=== PATIENT | male | born 1985 | race Caucasian/White ===

== ENCOUNTER → 2019-05-27 | Outpatient (REF) | payer SELFPAY ==
[2019-05-27 17:07] LABS: ALT/SGPT 40 U/L (12-78); BILIRUBIN,TOTAL 0.5 MG/DL (0.2-1.0); BLOOD UREA NITROGEN 18 MG/DL (7-18); CALCIUM LEVEL 9.3 MG/DL (8.5-10.1); CARBON DIOXIDE LEVEL 28 MEQ/L (21-32); CHLORIDE LEVEL 106 MEQ/L (98-107); CREATININE FOR GFR 0.76 MG/DL (0.70-1.30); GLOMERULAR FILTRATION RATE > 60.0 (>60); GLUCOSE, FASTING 156 MG/DL (70-100); POTASSIUM SERUM 3.9 MEQ/L (3.5-5.1); SODIUM LEVEL 140 MEQ/L (136-145); TOTAL PROTEIN 7.7 GM/DL (6.4-8.2)
[2019-05-27 17:32] LABS: HEMATOCRIT 45.8 % (42.0-52.0); HEMOGLOBIN 15.4 g/dl (13.5-17.5); MEAN CORPUSCULAR HEMOGLOBIN 28.8 pg (27.0-33.0); MEAN CORPUSCULAR HGB CONC 33.6 g/dl (32.0-36.5); MEAN CORPUSCULAR VOLUME 85.6 fl (80.0-96.0); PLATELET COUNT, AUTOMATED 269 10^3/uL (150-450); RED BLOOD COUNT 5.35 10^6/uL (4.30-6.10); WHITE BLOOD COUNT 5.7 10^3/uL (4.0-10.0)
[2019-05-27 17:46] LABS: HEMOGLOBIN A1c 11.9 %
== END ==
LOC: M LAB REF 16:25
PROVIDERS: ATTEND Surgery
DX: T14.8XXA Other injury of unspecified body region, initial encounter (principal)

== ENCOUNTER 2019-09-06 12:17 | Inpatient (IN) | payer BC, SELFPAY ==
[~2019-09-06] VITALS: Ht 193 cm; Wt 110.5 kg
[2019-09-06] MEDS ORDERED: BASA100I SC (12:27)
[2019-09-06] MEDS ORDERED: CLIN300C5 PO (12:27)
[2019-09-06] MEDS ORDERED: LEVO500T3 PO (12:27)
[2019-09-06] MEDS ORDERED: HUMA100I5 SC (12:27)
[2019-09-06] MEDS ORDERED: INSU100I9 (12:27)
[2019-09-06] MEDS ORDERED: NS 1,000 ML IV ONE (13:45)
[2019-09-06] MEDS ORDERED: ACETAMINOPHEN TAB 650MG DOSE (2X325MG) PO ONE (13:45)
[2019-09-06 13:54] LABS: BASO # 0.1 10^3/uL (0.0-0.2); BASO % 0.4 % (0.0-1.0); EOS # 0.1 10^3/uL (0.0-0.5); EOS % 0.4 % (0.0-3.0); HEMATOCRIT 37.9 % (42.0-52.0); HEMOGLOBIN 12.8 g/dl (13.5-17.5); LYMPH # 1.1 10^3/uL (1.5-5.0); LYMPH % 8.2 % (24.0-44.0); MEAN CORPUSCULAR HEMOGLOBIN 28.3 pg (27.0-33.0); MEAN CORPUSCULAR HGB CONC 33.8 g/dl (32.0-36.5); MEAN CORPUSCULAR VOLUME 83.7 fl (80.0-96.0); MONO # 1.2 10^3/uL (0.0-0.8); MONO % 9.4 % (0.0-5.0); NEUTROPHILS # 10.6 10^3/uL (1.5-8.5); NEUTROPHILS % 80.8 % (36.0-66.0); PLATELET COUNT, AUTOMATED 330 10^3/uL (150-450); RED BLOOD COUNT 4.53 10^6/uL (4.30-6.10)
[2019-09-06] MEDS ORDERED: ACET-683 PO (14:19)
--- NOTE | 2019-09-06 14:21 | REP ---
Left foot series: Four views. History: Infected diabetic foot. Rule out osteomyelitis. Findings: There is a dressing about the forefoot. There is diffuse soft tissue swelling. Overall mineralization pattern is normal. No bony erosive changes seen. No soft tissue gas or opaque foreign body is appreciated. Impression: Diffuse soft tissue swelling. No acute bony abnormality. Plantar heel spurring. No soft tissue gas seen. Electronically Signed by Mikie Jerez MD 09/06/2019 02:13 P
[2019-09-06 14:31] LABS: ERYTHROCYTE SEDIMENTATION RATE 94 mm/hr (0-15)
[2019-09-06 14:32] LABS: ALBUMIN 2.5 GM/DL (3.2-5.2); ALT/SGPT 54 U/L (12-78); BILIRUBIN,TOTAL 0.8 MG/DL (0.2-1.0); BLOOD UREA NITROGEN 16 MG/DL (7-18); CALCIUM LEVEL 8.5 MG/DL (8.5-10.1); CARBON DIOXIDE LEVEL 22 MEQ/L (21-32); CHLORIDE LEVEL 95 MEQ/L (98-107); CREATININE FOR GFR 0.97 MG/DL (0.70-1.30); GLOMERULAR FILTRATION RATE > 60.0 (>60); GLUCOSE, FASTING 451 MG/DL (70-100); POTASSIUM SERUM 4.1 MEQ/L (3.5-5.1); SODIUM LEVEL 129 MEQ/L (136-145); TOTAL PROTEIN 6.8 GM/DL (6.4-8.2)
[2019-09-06] MEDS ORDERED: HumuLIN R (REGULAR) INSULIN (NovoLIN R) **100U/ML** PER UNIT IV STA ×2 (15:18→15:58)
[2019-09-06] MEDS ORDERED: VANCOMYCIN HCL 1,000 MG, VIAL MATE ADAPTER 1 EACH in D5W 250 ML IV ONE (16:30)
[2019-09-06] MEDS ORDERED: GLUCAGON FOR INJ 1 MG VIAL (J1610) SC PRN (17:00)
[2019-09-06] MEDS ORDERED: DEXTROSE 50% 50 ML SYRINGE IV PRN (17:00)
[2019-09-06] MEDS ORDERED: GLUCOSE 4 GM CHEW TABLET PO PRN (17:00)
[2019-09-06] MEDS: HumaLOG INSULIN (NovoLOG) PER UNIT SC SCH ×2 (17:30→21:00)
--- NOTE | 2019-09-06 17:33 | HPEPDOC ---
[facility] Medical History & Physical Date of Admission Sep 06, 2019 Date of Service: Sep 06, 2019 History and Physical CHIEF COMPLAINT: Foot pain HISTORY OF PRESENT ILLNESS: Patient is 34M with PMH type 2 IDDM and R. diabetic foot wound presented to the ER with complaints of worsening pain in his new L. foot wound. He has been following with Dr. Timmons for the past year reportedly for his R. foot. He states that because of compensating for his R. foot, he had developed an open wound on his L. foot and has been getting worse. States that he has been having worsening swelling with his L. foot wound for the past several weeks. He went to [facility] last week and was started on Clindamycin with Levaquin since Thursday but had not improve at all. He reports pain with subjective fever and chills otherwise denies any other complaints. PAST MEDICAL HISTORY: Refer to [facility] PAST SURGICAL HISTORY: Appendectomy SOCIAL HISTORY: Smokes about 1ppd, does not want nicotine patch Social alcohol rare marijuana use FAMILY HISTORY: Father epilepsy Both parents has DM ALLERGIES: Please see below. REVIEW OF SYSTEMS: 10 point review of system negative except as stated in [facility] HOME MEDICATIONS: Please see below. PHYSICAL EXAMINATION: General: Alert, mild distress Eyes: Normal sclera, EOMI HENT: Atraumatic Cardiovascular: Normal rate, normal rhythm. Pulmonary: Clear to auscultation b/l, no wheezing GI: Soft, nontender, nondistended Skin: b/l LE with multiple darkened skin changes. L. foot with 2x2 erythematous round open wound in dorsum of the foot under 2/3rd toes. Nondraining, no bone exposure. Neuro: CN grossly intact. No focal deficits. Strengths equal b/l. Psych: oriented x 3 LABORATORY DATA: See below. IMAGING: L. foot XR- Diffuse soft tissue swelling. No acute bony abnormality. Plantar heel spurring. No soft tissue gas seen. MICROBIOLOGY: Please see below. ASSESSMENT AND PLAN: 1. L. diabetic foot wound - Mild leukocytosis with elevated ESR. - No evidence of bone exposure. - XR with evidence of soft tissue swelling but no bony abnormality suggestive of osteomyelitis at this time. - start on broad spectrum abx coverage while pending Podiatry evaluatio n/recommendation and blood culture results. - Failed outpatient PO abx with Clindamycin and levaquin. - Pain control. 2. DM - resume equivalent dose levemir for home regimen with ISS coverage. - consistent carbohydrate diet. DVT ppx: HSQ Code status: Full code Vital Signs Vital Signs Date Time Temp Pulse Resp B/P (MAP) Pulse Ox O2 Delivery O2 Flow Rate FiO2 09/06/19 15:14 98.6 92 18 139/80 (99) 95 Room Air Laboratory Data Labs 24H Laboratory Tests 2 09/06/19 13:33: Immature Granulocyte % (Auto) 0.8, Neutrophils (%) (Auto) 80.8H, Lymphocytes (%) (Auto) 8.2L, Monocytes (%) (Auto) 9.4H, Eosinophils (%) (Auto) 0.4, Basophils (%) (Auto) 0.4, Neutrophils # (Auto) 10.6H, Lymphocytes # (Auto) 1.1L, Monocytes # (Auto) 1.2H, Eosinophils # (Auto) 0.1, Basophils # (Auto) 0.1, Nucleated Red Blood Cells % (auto) 0.0, Erythrocyte Sedimentation Rate 94H, Anion Gap 12, Glomerular Filtration Rate > 60.0, Calcium Level 8.5, Total Bilirubin 0.8, Aspartate Amino Transf (AST/SGOT) 16, Alanine Aminotransferase (ALT/SGPT) 54, Alkaline Phosphatase 206H, C-Reactive Protein, Quantitative 22.10H, Total Protein 6.8, Albumin 2.5L, Albumin/Globulin Ratio 0.58L 09/06/19 13:44: Lactic Acid Level 1.7 09/06/19 15:55: Bedside Glucose (Misc Panel) 329H CBC/BMP Laboratory Tests 09/06/19 13:33 Microbiology Microbiology 09/06/19 Blood Culture, Received Pending 09/06/19 Blood Culture, Received Pending Home Medications Scheduled Clindamycin HCl (Clindamycin HCl) 300 Mg Capsule, 600 MG PO TID STARTED 09/01/2019 FOR A 10 DAY COURSE Insulin Glargine,Hum.rec.anlog (Basaglar Kwikpen U-100) 100 Unit/1 Ml Insuln.pen, 40 UNITS SC QHS Insulin Lispro (Humalog Kwikpen U-100) 100 Unit/1 Ml Insuln.pen, 1 DOSE SC AC PER SLIDING SCALE. Levofloxacin (Levofloxacin) 500 Mg Tablet, 500 MG PO DAILY COURSE STARTED 09/01/2019 FOR 10 DAYS Scheduled PRN Acetaminophen (Acetaminophen) 500 Mg Tablet, 1,000 MG PO Q6H PRN for PAIN / FEV ER Allergies Coded Allergies: Penicillins (Verified Allergy, Intermediate, rash hives, 09/06/19) A-FIB/CHADSVASC A-FIB History Current/History of A-Fib/PAF?: No NIYAH RIVERA MD Sep 06, 2019 17:33
[2019-09-06] MEDS: CEFEPIME HCL 2 GM in D5W MINI-BAG PLUS 50 ML IV SCH (18:18)
[2019-09-06] MEDS ORDERED: GENTAMICIN SULF INJ 80MG/2ML VIAL (J1580) As Ordered ONE (18:24)
[2019-09-06] MEDS ORDERED: BUPIVACAINE HCL 0.5% 10 ML VIAL As Ordered ONE (18:32)
[2019-09-06] MEDS ORDERED: dexameTHASONE 4 MG/ML 1ML VIAL (J1100) As Ordered ONE ×2 (18:32→18:33)
[2019-09-06] MEDS ORDERED: LIDOCAINE 2% MDV 20 ML VIAL As Ordered ONE (18:32)
[2019-09-06] MEDS ORDERED: LIDOCAINE 2% INJ 100 MG/5 ML SDV (FOR ANES.) As Ordered ONE (18:33)
[2019-09-06] MEDS ORDERED: METOCLOPRAMIDE INJ 10MG/2ML VIAL (J2765) As Ordered ONE (18:33)
[2019-09-06] MEDS ORDERED: propofoL 200 MG/20 ML VIAL As Ordered ONE ×2 (18:33→19:33)
[2019-09-06] MEDS ORDERED: ONDANSETRON 4MG/2ML VIAL (J2405) As Ordered ONE (18:33)
[2019-09-06] MEDS ORDERED: MIDAZOLAM INJ 2 MG/2 ML VIAL (J2250) As Ordered ONE (18:37)
[2019-09-06] MEDS ORDERED: fentaNYL 100 MCG/2 ML INJECTION (J3010) As Ordered ONE (18:37)
--- NOTE | 2019-09-06 18:37 | PHACANCOPD ---
PHARMACY VANCOMYCIN DOSING Pt Demographics Demographics Patient Age:34 , Weight:112.600 , Gender: male Adjusted Body Weight Date: 09/06/19, Adjusted Body Weight: Kg Events Past 24 Hours Events Past 24 Hours: YES: Fever, Elevation in WBC; NO: Dialysis, Diuretic Therapy, Change in CrCl, Pending Diagnostics, Pending Procedures, Other Vancomycin Vancomycin indication: DIABETIC FOOT INFECTION (SSTI) Vancomycin Target Ranges: 10-20 mcg/ml Vancomycin Load Y/N: Yes Load Dose Date Time Vancomycin Load Dose: 2000MG Date: 09/06/18 Time: 1900 Vancomycin Dose Date: 09/06/19. Current Vancomycin Dose: [ 1.5 grams q8h starting 09/07/18 @0300 ] Intermittent Dosing?: No Labs Labs Vital Signs Label Value Date Time Patient Temperature 100.1 degrees F 09/06/19 1217 Temperature Source Temporal 09/06/19 1217 Patient Temperature 98.6 degrees F 09/06/19 1514 Temperature Source Oral 09/06/19 1514 Respiratory Rate 24 bpm 09/06/19 1217 Respiratory Rate 18 bpm 09/06/19 1514 Blood Pressure Assessment 137/86 (103) 09/06/19 1217 Location Right Arm Source Automatic Cuff (NIBP) Position Sitting Blood Pressure Assessment 139/80 (99) 09/06/19 1514 Location Right Arm Source Automatic Cuff (NIBP) Position Supine Bedside Pulse Oximetry 98 % 09/06/19 1217 Bedside Pulse Oximetry 95 % 09/06/19 1514 Item Value Date Time Bedside Glucose (Misc Panel) 329 MG/DL H 09/06/19 1555 Glomerular Filtration Rate > 60.0 09/06/19 1333 Fasting Glucose 451 MG/DL *H 09/06/19 1333 C-Reactive Protein, Quantitative 22.10 MG/DL H 09/06/19 1333 Erythrocyte Sedimentation Rate 94 mm/hr H 09/06/19 1333 White Blood Count 13.0 10^3/uL H 09/06/19 1333 Micro Microbiology 09/06/19 Blood Culture, Received Pending 09/06/19 Blood Culture, Received Pending Creatinine Clearance Date:09/06/19. Creatinine Clearance: [ 136 mL/min ]. Assessment and Plan Maintaining Current Dose?: Yes Reason for dose change: No Dose Change Pharmacist Note Pharmacist Note Date: 09/06/19. Pharmacist note: Patient is a 34 year old man who presented to the emergency department at [facility] after failing outpatient antibiotic therapy consisting of levofloxacin and clindamycin for a diabetic foot ulcer. Upon further work-up he was found to an elevated white blood cell count, erythrocyte sedimentation rate and c-reactive protein. He is a insulin-dependent type 2 diabetic currently managed on multiple hypoglycemic medications. He has no previous history of vancomycin at [facility] and has normal renal function. Mr. Aguirre was placed on empiric antibiotic therapy consisting of Cefepime and vancomycin. A loading dose of 2 grams of vancomycin was ordered in addition to a 1.5 gram maintenance dose scheduled for every 8 hours. We will obtain a vancomycin trough level prior to the fourth dose, with a goal trough between 10- 20mcg/dL. We will continue to monitor and make adjustments as needed. RUTHIE DUNCAN PHARMACY Sep 06, 2019 18:37
--- NOTE | 2019-09-06 18:52 | CR ---
DATE OF CONSULTATION: 09/06/2019 CHIEF COMPLAINT: A 34-year-old type 2 diabetic male, seen for evaluation of an infection in his left foot. Patient is presently seen at the wound center for his right and left foot, states that his left foot started to initially swell and become more painful on Thursday. Patient went to [facility], was placed on oral antibiotics. However, his infection continued to progress, and now his foot is extremely tender, and presented to [facility] for painful and swollen left foot. SURGICAL HISTORY: Appendectomy. MEDICATION: Humalog. ALLERGIES: To PENICILLIN. EXAM: Evaluation of his left foot reveals an ulceration present submetatarsal 2 of the left foot, measuring approximately 2 cm in diameter. There is proximal to this an area of tense tissue with white discoloration of the skin consistent with abscess on the plantar surface of the foot. There is dorsal swelling, and the swelling does extend to the ankle. On the left foot, the dorsalis pedis and posterior tibial pulses are palpable. X-rays were reviewed of the patient's left foot revealing no signs of osteomyelitis. There is an inferior calcaneal spur noted. LABORATORY STUDIES: Reveal a white count of 13, ESR of 94, C-reactive protein 22.1, fasting glucose 451. ASSESSMENT: Central space abscess left foot. PLAN: Informed consent was obtained and signed by the patient. We discussed surgical incision and drainage of abscess, left foot. His questions were answered.
[2019-09-06] MEDS: VANCOMYCIN HCL 1,000 MG, VIAL MATE ADAPTER 1 EACH in D5W 250 ML IV SCH ×2 (19:17→22:45)
[2019-09-06] MEDS ORDERED: HumaLOG INSULIN (NovoLOG) PER UNIT As Ordered ONE (20:08)
[2019-09-06] MEDS ORDERED: ONDANSETRON 4MG/2ML VIAL (J2405) IV PRN (20:15)
[2019-09-06] MEDS ORDERED: fentaNYL 100 MCG/2 ML INJECTION (J3010) IV PRN (20:15)
[2019-09-06] MEDS ORDERED: ACETAMINOPHEN *IV* 1,000 MG in IV 0 EA IV PRN (20:15)
[2019-09-06] MEDS ORDERED: LR 1,000 ML IV SCH (20:15)
[2019-09-06] MEDS ORDERED: HumaLOG INSULIN (NovoLOG) PER UNIT SC ONE (21:00)
[2019-09-06 21:37] VITALS: BP 138/84
[2019-09-06 22:13] VITALS: BP 152/86
[2019-09-06] MEDS: LEVEMIR (INSULIN DETEMIR) 1 UNITS/0.01ML SC SCH (22:46)
[2019-09-06] MEDS: HEPARIN SOD (PORCINE) 5000 UNITS/ML VIAL (J1644 PER 1000UNITS) SC SCH (22:46)
[2019-09-06 23:24] VITALS: BP 146/74
[2019-09-06] MEDS: ACETAMINOPHEN 500 MG TAB PO PRN (23:29)
[2019-09-07 00:59] VITALS: BP 113/65
[2019-09-07 02:05] VITALS: BP 134/87
[2019-09-07] MEDS: VANCOMYCIN HCL 1,000 MG, VIAL MATE ADAPTER 1 EACH in D5W 250 ML IV SCH ×2 (03:42→11:33)
[2019-09-07] MEDS: HEPARIN SOD (PORCINE) 5000 UNITS/ML VIAL (J1644 PER 1000UNITS) SC SCH ×3 (05:44→21:29)
[2019-09-07] MEDS: VANCOMYCIN HCL 500 MG in D5W MINI-BAG PLUS 100 ML IV SCH ×2 (05:44→13:01)
[2019-09-07] MEDS: PERCOCET 5MG/325MG TAB PO PRN ×3 (06:05→21:47)
[2019-09-07 06:13] VITALS: BP 146/86
[2019-09-07 07:44] LABS: HEMATOCRIT 35.1 % (42.0-52.0); HEMOGLOBIN 11.9 g/dl (13.5-17.5); MEAN CORPUSCULAR HEMOGLOBIN 28.5 pg (27.0-33.0); MEAN CORPUSCULAR HGB CONC 33.9 g/dl (32.0-36.5); PLATELET COUNT, AUTOMATED 321 10^3/uL (150-450); RED BLOOD COUNT 4.18 10^6/uL (4.30-6.10); WHITE BLOOD COUNT 10.5 10^3/uL (4.0-10.0)
[2019-09-07] MEDS: CEFEPIME HCL 2 GM in D5W MINI-BAG PLUS 50 ML IV SCH ×2 (07:46→17:53)
[2019-09-07 08:03] LABS: BLOOD UREA NITROGEN 9 MG/DL (7-18); CALCIUM LEVEL 8.4 MG/DL (8.5-10.1); CARBON DIOXIDE LEVEL 27 MEQ/L (21-32); CHLORIDE LEVEL 100 MEQ/L (98-107); CREATININE FOR GFR 0.82 MG/DL (0.70-1.30); GLOMERULAR FILTRATION RATE > 60.0 (>60); GLUCOSE, FASTING 272 MG/DL (70-100); POTASSIUM SERUM 3.6 MEQ/L (3.5-5.1); SODIUM LEVEL 133 MEQ/L (136-145)
[2019-09-07] MEDS: HumaLOG INSULIN (NovoLOG) PER UNIT SC SCH ×4 (08:25→21:30)
--- NOTE | 2019-09-07 09:49 | RO ---
DATE OF PROCEDURE: 09/06/2019 PREOPERATIVE DIAGNOSIS: Plantar space abscess left foot. POSTOPERATIVE DIAGNOSIS: Plantar superficial, plantar deep and dorsal space infection left foot. PROCEDURE PERFORMED: Incision and drainage of central superficial, central deep and dorsal space left foot. SURGEON: Gus Contreras DPM HYDROLOGY PROFESSOR: None. ANESTHESIA: Local monitored anesthesia care (MAC). HEMOSTASIS: None. ESTIMATED BLOOD LOSS: 20 mL. IRRIGATION: 3 liters dilute gentamicin solution, low pressure pulse lavage system. DRAINS UTILIZED: 1/4-inch iodoform gauze DESCRIPTION OF OPERATION: On 09/06/2019 this 34-year-old male was taken from his hospital room to the operating room and placed on the operating room table in supine position. Following the induction of IV sedation, local and regional anesthesia, attention was directed to the patient's left foot where there was noted to be an ulceration on the plantar surface of the foot, inferior to the second metatarsal, with an abscess noted on the plantar surface with dorsal swelling on the right foot. Utilizing a hemostat the ulcer was explored. It did extend down into the plantar arch. Utilizing a scalpel, an incision was made through the superficial skin to the plantar fascia. This was opened up and a considerable amount of purulent matter was expressed. The plantar fascia was then linearly excised and additional purulent material was seen and expressed out of the plantar wound, approximately 10 mL of purulent bloody matter was expressed from the wound itself. This was sent for culture, aerobically and anaerobically. The wound was explored and there was a tunnel noted extending to the dorsal surface of the foot. A 2 cm incision was placed along this abscess and approximately 1 mL of purulent matter was expressed from this wound. Utilizing a low pressure pulse lavage system 3 liters of solution was pulsed through the wound. No other purulent material could be found. The wound was packed both deep to the plantar fascia and superficial to the plantar fascia as well as the dorsal space with 1/4-inch iodoform gauze and a dry sterile dressing was applied consisting of 4 x 4's, ABDs and Kerlix. The patient having apparently tolerated the surgical procedure well was taken from the operating room to the recovery room for further monitoring by the anesthesia department. The patient will continue his antibiotics. This will be tailored according to his culture and sensitivities. The patient may bear weight on his heel. His questions are answered.
[2019-09-07 15:45] VITALS: BP 135/84
[2019-09-07] MEDS: ACETAMINOPHEN 500 MG TAB PO PRN (19:08)
--- NOTE | 2019-09-07 20:19 | IPNPDOC ---
Date Seen The patient was seen on 09/07/19. Progress Note SUBJECTIVE: Patient s/p debridement of foot abscess. Reports feeling slightly better today. Tmax 102.7 last night, fever had resolved. WBC 13->10.5. OBJECTIVE PHYSICAL EXAMINATION: General: Alert, mild distress Eyes: Normal sclera, EOMI HENT: Atraumatic Cardiovascular: Normal rate, normal rhythm. Pulmonary: Clear to auscultation b/l, no wheezing GI: Soft, nontender, nondistended Skin: b/l LE with multiple darkened skin changes. L. foot with overlying bandage c/d/i. Neuro: CN grossly intact. No focal deficits. Strengths equal b/l. Psych: oriented x 3 LABORATORY DATA: See below. IMAGING: L. foot XR- Diffuse soft tissue swelling. No acute bony abnormality. Plantar heel spurring. No soft tissue gas seen. MICROBIOLOGY: Please see below. ASSESSMENT AND PLAN: 1. L. diabetic foot wound - Mild leukocytosis with elevated ESR. - No evidence of bone exposure. - XR with evidence of soft tissue swelling but no bony abnormality suggestive of osteomyelitis at this time. - c/w IV broad spectrum abx coverage while pending culture results. - Failed outpatient PO abx with Clindamycin and levaquin. - Pain control. 2. DM - resume equivalent dose levemir for home regimen with ISS coverage. - consistent carbohydrate diet. DVT ppx: HSQ Code status: Full code VS, I&O, 24H, Fishbone Vital Signs/I&O Vital Signs Date Time Temp Pulse Resp B/P (MAP) Pulse Ox O2 Delivery O2 Flow Rate FiO2 09/07/19 13:46 18 Room Air 09/07/19 06:13 99.1 96 146/86 (106) 97 I&O- Last 24 Hours up to 6 AM 09/07/19 06:00 Intake Total 4390 ml Output Total 20 ml Balance 4370 ml Laboratory Data 24H LABS Laboratory Tests 2 09/06/19 21:43: Bedside Glucose (Misc Panel) 231H 09/07/19 07:27: Nucleated Red Blood Cells % (auto) 0.0, Anion Gap 6L, Glomerular Filtration Rate > 60.0, Calcium Level 8.4L 09/07/19 12:24: Bedside Glucose (Misc Panel) 276H 09/07/19 17:41: Bedside Glucose (Misc Panel) 335H 09/07/19 19:49: CBC/BMP Laboratory Tests 09/07/19 07:27 Microbiology Microbiology 09/06/19 Anaerobic Culture, Received Pending 09/06/19 Gram Stain - Final, Resulted 09/06/19 Abscess Culture, Resulted Pending 09/06/19 Blood Culture - Preliminary, Resulted No growth after 24 hours . All specim... 09/06/19 Blood Culture - Preliminary, Resulted No growth after 24 hours . All specim... NIYAH RIVERA MD Sep 07, 2019 20:19
[2019-09-07] MEDS: LEVEMIR (INSULIN DETEMIR) 1 UNITS/0.01ML SC SCH (21:30)
[2019-09-07 22:00] VITALS: BP 136/81
--- NOTE | 2019-09-07 22:19 | IPN ---
DATE: 09/07/2019 CHIEF COMPLAINT: Patient was seen at bedside for evaluation of his left foot. The bandage and packing were removed. There was a minimal amount of purulent material on the dorsal incision. There was no purulent material on the plantar incision. Utilizing dermal wound cleanser, the wound was flushed of any purulent material. No other purulent material could be expressed. A dry sterile dressing was applied to the patient's left foot. Orders were written to cleanse wound with wound cleanse and apply Drawtex to the wound twice a day. Patient's questions were answered. Dr. Barr will be covering my service. I will be out of town until Thursday.
[2019-09-08] MEDS: VANCOMYCIN HCL 1,000 MG, VIAL MATE ADAPTER 1 EACH in D5W 250 ML IV SCH ×4 (00:22→22:18)
[2019-09-08] MEDS: VANCOMYCIN HCL 500 MG in D5W MINI-BAG PLUS 100 ML IV SCH ×3 (02:16→19:00)
[2019-09-08 06:00] VITALS: BP 135/81
[2019-09-08] MEDS: CEFEPIME HCL 2 GM in D5W MINI-BAG PLUS 50 ML IV SCH ×2 (06:18→21:10)
[2019-09-08] MEDS: HEPARIN SOD (PORCINE) 5000 UNITS/ML VIAL (J1644 PER 1000UNITS) SC SCH ×3 (06:19→21:09)
[2019-09-08] MEDS: PERCOCET 5MG/325MG TAB PO PRN ×3 (06:43→22:38)
[2019-09-08 07:14] LABS: HEMATOCRIT 36.1 % (42.0-52.0); HEMOGLOBIN 11.7 g/dl (13.5-17.5); MEAN CORPUSCULAR HEMOGLOBIN 27.5 pg (27.0-33.0); MEAN CORPUSCULAR HGB CONC 32.4 g/dl (32.0-36.5); MEAN CORPUSCULAR VOLUME 84.9 fl (80.0-96.0); PLATELET COUNT, AUTOMATED 338 10^3/uL (150-450); RED BLOOD COUNT 4.25 10^6/uL (4.30-6.10); WHITE BLOOD COUNT 10.3 10^3/uL (4.0-10.0)
[2019-09-08 07:36] LABS: BLOOD UREA NITROGEN 7 MG/DL (7-18); CALCIUM LEVEL 8.6 MG/DL (8.5-10.1); CARBON DIOXIDE LEVEL 29 MEQ/L (21-32); CHLORIDE LEVEL 98 MEQ/L (98-107); CREATININE FOR GFR 0.78 MG/DL (0.70-1.30); GLOMERULAR FILTRATION RATE > 60.0 (>60); GLUCOSE, FASTING 279 MG/DL (70-100); POTASSIUM SERUM 3.4 MEQ/L (3.5-5.1); SODIUM LEVEL 133 MEQ/L (136-145)
[2019-09-08] MEDS ORDERED: LEVEMIR (INSULIN DETEMIR) 1 UNITS/0.01ML SC ONE (08:00)
[2019-09-08] MEDS: HumaLOG INSULIN (NovoLOG) PER UNIT SC SCH ×4 (08:16→21:10)
[2019-09-08 10:00] VITALS: BP 141/85
[2019-09-08 14:00] VITALS: BP 120/79
--- NOTE | 2019-09-08 15:49 | CR.PDOC ---
General Date of Consultation: Sep 08, 2019 Referring Provider: NIYAH RIVERA MD Attending Physician: Lisa Barr MD Consultation REASON FOR CONSULTATION/CHIEF COMPLAINT: Diabetic foot ulcer HISTORY OF PRESENT ILLNESS: Patient is a 34-year-old male, past medical history significant for type 2 insulin-dependent diabetes and chronic right foot ulceration, who presented to the emergency department on 09/06/2019 with a chief complaint of worsening left foot pain. Patient was last seen at [facility] a week prior to presentation with a similar complaint. His ulcer was examined and patient was started on outpatient clindamycin and Levaquin. Over the weekend, patient reports little improvement in overall symptoms. 3 days prior to presentation, patient reported increasing number of his fever and chills with a MAXIMUM TEMPERATURE of 104. Upon presentation emergency department, patient's temperature was noted to be 100.1F with associated tachycardia of 118. Respiratory rate of 24. Initial laboratory workup was positive for a white count of 13.0 and a fasting glucose of 451. No lactic acid elevation with a value of 1.7. X-ray imaging performed on patient's right foot demonstrated diffuse soft tissue swelling without any visible gas. No acute bony abnormalities. Patient was treated with IV insulin and broad-spectrum antibiotics, vancomycin and cefepime. Podiatry was consulted and ultimately performed an incision and drainage of a central space abscess. Infectious disease was later consulted to review antibiotic therapy choice. ALLERGIES: Please see below. HOME MEDICATIONS: Please see below. PAST MEDICAL HISTORY: Type 2 diabetes, insulin-dependent, diagnosed at age 19 History of chronic right foot diabetic ulcer PAST SURGICAL HISTORY: Appendectomy FAMILY HISTORY: Father: Newly diagnosed diabetes mellitus, history of epilepsy Mother: Insulin-dependent diabetes mellitus SOCIAL HISTORY: Nicotine use: Patient reports smoking approximately 1 pack per day but declines nicotine patch on admission Alcohol use: Patient reports using occasional alcohol Illicit drug use: Patient does admit to rare marijuana use REVIEW OF SYSTEMS: CONSTITUTIONAL: Patient reports resolution of his subjective fever and chills. He denies any noticeable changes in weight over the last couple of months. Her increasing fatigue. HEENT: Denies headache, change is in vision, earache or changes in hearing, nasal congestion, rhinorrhea, sinus pain or pressure, difficulty swallowing. CARDIOVASCULAR: Denies chest pain, pressure, inappropriate tachycardia or palpitations RESPIRATORY: Denies any new onset shortness of breath, cough, wheeze. No exertional dyspnea, history of orthopnea GENITOURINARY: No urinary frequency, urgency, hesitancy. Denies any hematuria MUSCULOSKELETAL: Reports improving pain in his left foot status post I&D on 09/07/2019 GASTROINTESTINAL: Denies any nausea or vomiting, abdominal pain, constipation or diarrhea. No history of bloody stools. No black tarry stools. SKIN: Reports history of chronic R-sided LE ulceration, previously followed with wound clinic. NEUROLOGICAL: Reports a one-year history of worsening diabetic neuropathy particularly in his distal lower extremities bilaterally ENDOCRINE: Denies any recent polyphagia polydipsia or polyuria. PHYSICAL EXAMINATION: VITAL SIGNS: Please see below. GENERAL APPEARANCE: Patient was interviewed and examined in his hospital bed. He was found to be resting comfortably eating lunch. He is awake, alert, and oriented. He is able to answer questions appropriately and actively participate in his care. He is bearded, and does appear slightly unkempt. HEENT: Normocephalic, atraumatic, sclera nonicteric, moist mucous membranes, poor oral hygiene. RESPIRATORY: Clear to auscultation bilaterally, no wheezes rales or rhonchi CARDIOVASCULAR: Regular rate and rhythm, normal S1 and S2, no murmurs gallops or rubs ABDOMEN: Soft, nontender, nondistended. no organomegaly or masses. Bowel sounds present in all 4 quadrants. EXTREMITIES: Resolved ulcer noted on the plantar aspect of patient's right foot measuring approximately 2.5 cm diameter. Patient's left foot was wrapped in gauze and Kerlix. Upon inspection, patient does demonstrate healing incisions in both the plantar and dorsal aspect of his foot. Mild surrounding erythema without any purulent drainage or discharge. No proximal cellulitis noted. Slight maceration noted between first and second digits. Motor function intact bilaterally. Dorsalis pedis and posterior tibial pulses 2+ bilaterally. Decrease d sensation in the distal aspects of all digits bilaterally. NEUROLOGICAL: Alert and oriented to person place and time, decreased sensation on distal aspects of toes as noted above. PSYCHIATRIC: Mood and affect are appropriate given patient's current clinical condition. LABORATORY DATA: Please see below. ASSESSMENT/PLAN: #Complicated skin and soft tissue infection with known central space abscess - Blood cultures obtained upon admission did not demonstrate any growth after 48 hours. Anaerobic culture of patient's left foot remains pending. Gram stain is positive form gram-positive cocci in pairs, gram-positive rods and gram-negative rods. Initial leukocytosis of 13.0 and since reduced at 10.3. CRP down from 22.1 to 14.4. - X-ray imaging does not indicate osteomyelitis. Failed outpatient treatment with clindamycin and Levaquin. - Patient started on empiric antibiotic therapy upon admission with vancomycin and cefepime, day #3. Culture pending subsequent adjustment of antibiotics per sensitivities. -MRI tomorrow morning to further rule out osteomyelitis -Plan to de-escalate antimicrobial therapy pending culture results. Vital Signs/I&O Vital Signs Date Time Temp Pulse Resp B/P (MAP) Pulse Ox O2 Delivery O2 Flow Rate FiO2 09/08/19 13:30 18 09/08/19 06:00 98.9 103 135/81 (99) 95 Room Air I&O- Last 24 Hours up to 6 AM 09/08/19 06:00 Intake Total 1570 ml Output Total 0 ml Balance 1570 ml Laboratory Data Labs 24H Laboratory Tests 2 09/07/19 17:41: Bedside Glucose (Misc Panel) 335H 09/07/19 20:55: Bedside Glucose (Misc Panel) 352H 09/07/19 23:20: Vancomycin Level Trough 3.6L 09/08/19 06:27: Nucleated Red Blood Cells % (auto) 0.0, Anion Gap 6L, Glomerular Filtration Rate > 60.0, Calcium Level 8.6, C-Reactive Protein, Quantitative 14.40H 09/08/19 11:11: Bedside Glucose (Misc Panel) 336H 09/08/19 14:49: CBC/BMP Laboratory Tests 09/08/19 06:27 Microbiology Microbiology 09/06/19 Anaerobic Culture, Received Pending 09/06/19 Gram Stain - Final, Resulted 09/06/19 Abscess Culture, Resulted Pending 09/06/19 Blood Culture - Preliminary, Resulted No Growth after 48 hours. All Specime... 09/06/19 Blood Culture - Preliminary, Resulted No Growth after 48 hours. All Specime... Allergies Coded Allergies: Penicillins (Verified Allergy, Intermediate, rash hives, 09/06/19) Home Medications Scheduled Clindamycin HCl (Clindamycin HCl) 300 Mg Capsule, 600 MG PO TID, (Reported) STARTED 09/01/2019 FOR A 10 DAY COURSE Insulin Glargine,Hum.rec.anlog (Basaglar Kwikpen U-100) 100 Unit/1 Ml Insuln.pen, 40 UNITS SC QHS, (Reported) Insulin Lispro (Humalog Kwikpen U-100) 100 Unit/1 Ml Insuln.pen, 1 DOSE SC AC, (Reported) PER SLIDING SCALE. Levofloxacin (Levofloxacin) 500 Mg Tablet, 500 MG PO DAILY, (Reported) COURSE STARTED 09/01/2019 FOR 10 DAYS Scheduled PRN Acetaminophen (Acetaminophen) 500 Mg Tablet, 1,000 MG PO Q6H PRN for PAIN / FEVER, (Reported) GME ATTESTATION GME ATTESTATION My faculty preceptor for this patient encounter was physically present during the encounter and was fully available. All aspects of the patient interview, examination, medical decision making process, and medical care plan development were reviewed and approved by the faculty preceptor. The faculty preceptor is aware and concurs with the plan as stated in the body of this note and will attest to such by his/her cosignature. KIANNA CUTLER DO Sep 08, 2019 15:49
--- NOTE | 2019-09-08 15:50 | PHACANCOPD ---
PHARMACY VANCOMYCIN DOSING Pt Demographics Demographics Patient Age:34 , Weight:112.600 , Gender: male Adjusted Body Weight Date: 09/06/19, Adjusted Body Weight: [86.08] Kg Events Past 24 Hours Events Past 24 Hours: NO: Dialysis, Diuretic Therapy, Change in CrCl, Fever, Elevation in WBC, Pending Diagnostics, Pending Procedures, Other Vancomycin Vancomycin indication: DIABETIC FOOT INFECTION (SSTI) Vancomycin Target Ranges: 10-20 mcg/ml Vancomycin Load Y/N: Yes Load Dose Date Time Vancomycin Load Dose: 2000MG Date: 09/06/18 Time: 1900 Vancomycin Dose Date: 09/08/19. Current Vancomycin Dose: [1.5G Q6H ] Date: 09/06/19. Current Vancomycin Dose: [ 1.5 grams q8h starting 09/07/18 @0300 ] Intermittent Dosing?: No Labs Labs Item Value Date Time White Blood Count 13.0 10^3/uL H 09/06/19 1333 White Blood Count 10.5 10^3/uL H 09/07/19 0727 White Blood Count 10.3 10^3/uL H 09/08/19 0627 Creatinine 0.97 MG/DL 09/06/19 1333 Creatinine 0.82 MG/DL 09/07/19 0727 Creatinine 0.78 MG/DL 09/08/19 0627 C-Reactive Protein, Quantitative 22.10 MG/DL H 09/06/19 1333 C-Reactive Protein, Quantitative 14.40 MG/DL H 09/08/19 0627 Vancomycin Level Trough 3.6 UG/ML L 09/07/19 2320 Vancomycin Level Trough 9.0 UG/ML L 09/08/19 1449 Micro Microbiology 09/06/19 Anaerobic Culture, Received Pending 09/06/19 Gram Stain - Final, Resulted 09/06/19 Abscess Culture, Resulted Pending 09/06/19 Blood Culture - Preliminary, Resulted No Growth after 48 hours. All Specime... 09/06/19 Blood Culture - Preliminary, Resulted No Growth after 48 hours. All Specime... Creatinine Clearance Date:09/08/19. Creatinine Clearance: [169ML/MIN]. Date:09/06/19. Creatinine Clearance: [ 136 mL/min ]. Pending Labs VANCOMYCIN TROUGH 09/09/19 @ 09:00 Assessment and Plan Maintaining Current Dose?: Yes Reason for dose change: No Dose Change Pharmacist Note Pharmacist Note Date: 09/08/19. Pharmacist note: Pt trough came back @ 14:49 at 9mcg/ml. Dosing will change to 1.5g IV every 6 hours starting at 16:00. A trough is scheduled for 09:00 09/09/19. We will continue to monitor and adjust the dose as needed. Date: 09/06/19. Pharmacist note: Patient is a 34 year old man who presented to the emergency department at [facility] after failing outpatient antibiotic therapy consisting of levofloxacin and clindamycin for a diabetic foot ulcer. Upon further work-up he was found to an elevated white blood cell count, erythrocyte sedimentation rate and c-reactive protein. He is a insulin-dependent type 2 diabetic currently managed on multiple hypoglycemic medications. He has no previous history of vancomycin at [facility] and has normal renal function. Mr. Aguirre was placed on empiric antibiotic therapy consisting of Cefepime and vancomycin. A loading dose of 2 grams of vancomycin was ordered in addition to a 1.5 gram maintenance dose scheduled for every 8 hours. We will obtain a vancomycin trough level prior to the fourth dose, with a goal trough between 10-20mcg/dL. We will continue to monitor and make adjustments as needed. ESTELITA SCRUGGS PHARMACY Sep 08, 2019 15:50
[2019-09-08 20:03] VITALS: BP 132/82
[2019-09-08] MEDS: LEVEMIR (INSULIN DETEMIR) 1 UNITS/0.01ML SC SCH (21:09)
[2019-09-09] MEDS: VANCOMYCIN HCL 500 MG in D5W MINI-BAG PLUS 100 ML IV SCH ×5 (00:07→23:18)
[2019-09-09] MEDS: VANCOMYCIN HCL 1,000 MG, VIAL MATE ADAPTER 1 EACH in D5W 250 ML IV SCH ×4 (04:21→22:16)
[2019-09-09 05:45] VITALS: BP 134/84
[2019-09-09] MEDS: HEPARIN SOD (PORCINE) 5000 UNITS/ML VIAL (J1644 PER 1000UNITS) SC SCH ×3 (05:51→21:00)
[2019-09-09] MEDS: CEFEPIME HCL 2 GM in D5W MINI-BAG PLUS 50 ML IV SCH (06:56)
[2019-09-09] MEDS: PERCOCET 5MG/325MG TAB PO PRN ×3 (06:57→20:57)
[2019-09-09 07:00] LABS: HEMATOCRIT 38.3 % (42.0-52.0); HEMOGLOBIN 12.2 g/dl (13.5-17.5); MEAN CORPUSCULAR HEMOGLOBIN 27.4 pg (27.0-33.0); MEAN CORPUSCULAR HGB CONC 31.9 g/dl (32.0-36.5); MEAN CORPUSCULAR VOLUME 85.9 fl (80.0-96.0); PLATELET COUNT, AUTOMATED 364 10^3/uL (150-450); RED BLOOD COUNT 4.46 10^6/uL (4.30-6.10); WHITE BLOOD COUNT 10.8 10^3/uL (4.0-10.0)
[2019-09-09 07:18] LABS: BLOOD UREA NITROGEN 8 MG/DL (7-18); CALCIUM LEVEL 8.2 MG/DL (8.5-10.1); CARBON DIOXIDE LEVEL 31 MEQ/L (21-32); CHLORIDE LEVEL 94 MEQ/L (98-107); CREATININE FOR GFR 0.92 MG/DL (0.70-1.30); GLOMERULAR FILTRATION RATE > 60.0 (>60); GLUCOSE, FASTING 331 MG/DL (70-100); SODIUM LEVEL 132 MEQ/L (136-145)
[2019-09-09] MEDS: HumaLOG INSULIN (NovoLOG) PER UNIT SC SCH ×4 (08:03→21:00)
[2019-09-09 14:00] VITALS: BP 135/82
[2019-09-09] MEDS: MEROPENEM INJ 1 GM in IV 1 EA IV SCH ×2 (14:12→20:37)
--- NOTE | 2019-09-09 16:27 | IPN ---
DATE: 09/09/2019 Sukumar is doing well. He states he has some pain in his left foot. No fever or chills. His last temperature was 24 hours ago at 100.8. He has no nausea, vomiting or diarrhea. LABS: White count is 10.8, hemoglobin 12.2, hematocrit 38.3, platelets 364. Sodium 132, potassium 4, chloride 94, bicarb 31, BUN 8, creatinine 0.92, glucose 331, calcium 8.2. CRP 12.5, down from 22.1. Blood cultures two sets on 09/06/2019 was negative. Wound culture had staph coag negative and three different anaerobes that need to be identified. Staph coag negative was resistant to oxacillin. MRI of left foot is still pending. On physical exam, temperature is 98.8, pulse 101, respirations 18, blood pressure 134/84, oxygen saturation 97% on room air. Heart: Normal S1, S2. No murmurs, rubs or gallops. Lungs are clear. No wheezes, rales or rhonchi. Abdomen: Soft, nontender. No visceromegaly. Extremities: Right foot no edema. +2 dorsalis pedal pulse. Left foot has swelling of the whole foot as there is an incision between the 1st and 2nd toe measuring about 2 cm with significant purulent discharge. The dorsal aspect of the foot has another large incision measuring about 4 cm between the 2nd and 3rd toe. There is some purulent discharge there but that has improved from yesterday. The patient has decreased sensation to light touch but he has some tenderness to touch. IMPRESSION: 1. Complicated skin and soft tissue infection with polymicrobial keri anaerobic infection currently on vancomycin and cefepime. He does not have any anaerobic coverage on current medication. 2. Insulin-dependent diabetes poorly controlled with HbA1c of 11. The patient plans to improve his diabetes control and has an appointment to followup with Dr. Tolliver as he does not measure his glucose at home. 3. Tobacco abuse. The patient states he is quitting smoking. PLAN: MRI of the foot today. Depending on findings if patient needs more I and D I will call podiatry to evaluate. Dr. Contreras is out of town and I may need to call Dr. Cameron. Discontinue IV cefepime and switch to meropenem which has better anaerobic coverage. Since the patient is allergic to penicillin I cannot use Zosyn MTDD
--- NOTE | 2019-09-09 18:53 | IPNPDOC ---
Date Seen The patient was seen on 09/09/19. Progress Note SUBJECTIVE: Patient states he feels fine today. Afebrile overnight. WBC 10.8. abscess cx + staph Pending MRI today OBJECTIVE PHYSICAL EXAMINATION: General: Alert, mild distress Eyes: Normal sclera, EOMI HENT: Atraumatic Cardiovascular: Normal rate, normal rhythm. Pulmonary: Clear to auscultation b/l, no wheezing GI: Soft, nontender, nondistended Skin: b/l LE with multiple darkened skin changes. L. foot with overlying bandage c/d/i. Neuro: CN grossly intact. No focal deficits. Strengths equal b/l. Psych: oriented x 3 LABORATORY DATA: See below. IMAGING: L. foot XR- Diffuse soft tissue swelling. No acute bony abnormality. Plantar heel spurring. No soft tissue gas seen. MICROBIOLOGY: Please see below. ASSESSMENT AND PLAN: 1. L. diabetic foot abscess - s/p debridement. - XR with evidence of soft tissue swelling but no bony abnormality. Pending MRI to assess for osteo. - c/w IV broad spectrum abx meropenem and vancomycin. f/u blood cultures. - Failed outpatient PO abx with Clindamycin and levaquin. - Pain control. ID following. 2. DM - resume equivalent dose levemir for home regimen with ISS coverage. - consistent carbohydrate diet. DVT ppx: HSQ Code status: Full code VS, I&O, 24H, Fishbone Vital Signs/I&O Vital Signs Date Time Temp Pulse Resp B/P (MAP) Pulse Ox O2 Delivery O2 Flow Rate FiO2 09/09/19 14:00 98.7 82 18 135/82 (99) 95 Room Air I&O- Last 24 Hours up to 6 AM 09/09/19 06:00 Intake Total 3250 ml Output Total 0 ml Balance 3250 ml Laboratory Data 24H LABS Laboratory Tests 2 09/08/19 20:02: Bedside Glucose (Misc Panel) 391H 09/09/19 06:41: Nucleated Red Blood Cells % (auto) 0.0, Anion Gap 7L, Glomerular Filtration Rate > 60.0, Calcium Level 8.2L, C-Reactive Protein, Quantitative 12.50H 09/09/19 09:16: Vancomycin Level Trough 15.9 09/09/19 11:44: Bedside Glucose (Misc Panel) 292H 09/09/19 16:41: Bedside Glucose (Misc Panel) 338H CBC/BMP Laboratory Tests 09/09/19 06:41 Microbiology Microbiology 09/06/19 Anaerobic Culture, Received Pending 09/06/19 Gram Stain - Final, Complete 09/06/19 Abscess Culture - Final, Complete Staphylococcus Sp Coag Neg 09/06/19 Blood Culture - Preliminary, Resulted No Growth after 72 hours. All specime... 09/06/19 Blood Culture - Preliminary, Resulted No Growth after 72 hours. All specime... NIYAH RIVERA MD Sep 09, 2019 18:53
[2019-09-09] MEDS ORDERED: PROHANCE 279.3MG/ML 15ML VIAL (A9576) As Ordered ONE (19:23)
[2019-09-09] MEDS ORDERED: PROHANCE 279.3MG/ML 5ML VIAL (A9576) As Ordered ONE (19:23)
[2019-09-09] MEDS: LEVEMIR (INSULIN DETEMIR) 1 UNITS/0.01ML SC SCH (20:37)
--- NOTE | 2019-09-09 21:00 | REPVR ---
PROCEDURE INFORMATION: Exam: MR Left Lower Extremity Other Than Joint Without and With Contrast; Foot Exam date and time: 09/09/2019 8:06 PM Age: 34 years old Clinical indication: Pain and condition or disease; Other: Diabetic ulcer; Left; Patient HX: PT states having diabetic foot ulcer on the top and bottom of foot near the toes; Additional info: Diabetic foot ulcer, R/O osteomyelitis TECHNIQUE: Imaging protocol: MR of the Left lower extremity without and with intravenous contrast. Exam focused on the foot. Contrast material: PROHANCE; Contrast volume: 20 ml; Contrast route: HAND INJECTION; COMPARISON: CR Foot, complete 09/06/2019 1:56 PM FINDINGS: Soft tissues: There is extensive soft tissue swelling in the forefoot particularly surrounding the 1st and 2nd digits. There is an ulceration of the plantar surface of the forefoot best seen on series 501 images 17-23. There is a defect in the plantar skin surface at this site with gas extending into the underline soft tissue of the subcutaneous fat. There is edema and pockets of fluid surrounding the 1st and 2nd phalanges and the 2nd metatarsal head. There is moderate bone marrow edema within the 2nd metatarsal head and base of the 2nd proximal phalanx on STIR images. On this is only minimally present on T1 weighted images, however there is faint enhancement on the postcontrast images in the same location. There is also edema noted in the marrow of the distal phalanx and distal portion of the proximal phalanx of the 1st digit on STIR images with enhancement on postcontrast images. No edema in the 1st metatarsal. IMPRESSION: 1. Ulceration of the plantar aspect of the forefoot with extensive soft tissue edema and pockets of fluid surrounding the 1st and 2nd digits. 2. Moderate edema within the head of the 2nd metatarsal and base of the 2nd proximal phalanx as well as within the distal phalanx and head of the proximal phalanx with enhancement. Consistent with early osteomyelitis. Electronically signed by: Damián Sears On 09/09/2019 20:59:59 PM
[2019-09-09 22:16] VITALS: BP 128/88
[2019-09-10] MEDS: VANCOMYCIN HCL 500 MG in D5W MINI-BAG PLUS 100 ML IV SCH ×3 (04:29→18:35)
[2019-09-10] MEDS: HEPARIN SOD (PORCINE) 5000 UNITS/ML VIAL (J1644 PER 1000UNITS) SC SCH ×2 (05:13→13:23)
[2019-09-10] MEDS: PERCOCET 5MG/325MG TAB PO PRN ×3 (05:15→21:35)
[2019-09-10] MEDS: VANCOMYCIN HCL 1,000 MG, VIAL MATE ADAPTER 1 EACH in D5W 250 ML IV SCH ×3 (05:27→20:10)
[2019-09-10 06:02] VITALS: BP 128/82
[2019-09-10 06:37] LABS: HEMATOCRIT 37.1 % (42.0-52.0); HEMOGLOBIN 12.1 g/dl (13.5-17.5); MEAN CORPUSCULAR HEMOGLOBIN 27.7 pg (27.0-33.0); MEAN CORPUSCULAR HGB CONC 32.6 g/dl (32.0-36.5); MEAN CORPUSCULAR VOLUME 84.9 fl (80.0-96.0); PLATELET COUNT, AUTOMATED 412 10^3/uL (150-450); RED BLOOD COUNT 4.37 10^6/uL (4.30-6.10); WHITE BLOOD COUNT 12.4 10^3/uL (4.0-10.0)
[2019-09-10] MEDS: MEROPENEM INJ 1 GM in IV 1 EA IV SCH ×3 (06:51→21:32)
[2019-09-10 07:13] LABS: BLOOD UREA NITROGEN 9 MG/DL (7-18); CALCIUM LEVEL 8.7 MG/DL (8.5-10.1); CARBON DIOXIDE LEVEL 28 MEQ/L (21-32); CHLORIDE LEVEL 92 MEQ/L (98-107); CREATININE FOR GFR 0.78 MG/DL (0.70-1.30); GLOMERULAR FILTRATION RATE > 60.0 (>60); GLUCOSE, FASTING 294 MG/DL (70-100); POTASSIUM SERUM 4.4 MEQ/L (3.5-5.1); SODIUM LEVEL 130 MEQ/L (136-145)
[2019-09-10] MEDS: HumaLOG INSULIN (NovoLOG) PER UNIT SC SCH ×4 (08:54→21:27)
[2019-09-10 09:15] LABS: VANCOMYCIN RANDOM 31.3 UG/ML
[2019-09-10 14:00] VITALS: BP 126/81
--- NOTE | 2019-09-10 16:09 | IPNPDOC ---
Date Seen The patient was seen on 09/10/19. Progress Note SUBJECTIVE: Patient offered no complaints. Noted foot swelling to had improved. Afebrile overnight. WBC 12.4 OBJECTIVE PHYSICAL EXAMINATION: General: Alert, mild distress Eyes: Normal sclera, EOMI HENT: Atraumatic Cardiovascular: Normal rate, normal rhythm. Pulmonary: Clear to auscultation b/l, no wheezing GI: Soft, nontender, nondistended Skin: b/l LE with multiple darkened skin changes. L. foot with overlying bandage c/d/i. Neuro: CN grossly intact. No focal deficits. Strengths equal b/l. Psych: oriented x 3 LABORATORY DATA: See below. IMAGING: L. foot XR- Diffuse soft tissue swelling. No acute bony abnormality. Plantar heel spurring. No soft tissue gas seen. MICROBIOLOGY: Please see below. ASSESSMENT AND PLAN: 1. L. diabetic foot abscess - s/p drainage. - XR with evidence of soft tissue swelling but no bony abnormality, however MRI shows evidence of early osteomyelitis. - discussed with covering Podiatry for the weekend, will evaluate new findings. - c/w IV broad spectrum abx meropenem and vancomycin. blood cultures negative to date. - Failed outpatient PO abx with Clindamycin and levaquin. - Pain control. ID following. 2. DM - resume equivalent dose levemir for home regimen with ISS coverage. - consistent carbohydrate diet. DVT ppx: HSQ Code status: Full code VS, I&O, 24H, Fishbone Vital Signs/I&O Vital Signs Date Time Temp Pulse Resp B/P (MAP) Pulse Ox O2 Delivery O2 Flow Rate FiO2 09/10/19 14:00 99.1 87 20 126/81 (96) 95 Room Air I&O- Last 24 Hours up to 6 AM 09/10/19 06:00 Intake Total 3250 ml Output Total 0 ml Balance 3250 ml Laboratory Data 24H LABS Laboratory Tests 2 09/09/19 16:41: Bedside Glucose (Misc Panel) 338H 09/09/19 20:36: Bedside Glucose (Misc Panel) 422H 09/10/19 06:24: Nucleated Red Blood Cells % (auto) 0.0, Anion Gap 10, Glomerular Filtration Rate > 60.0, Calcium Level 8.7, C-Reactive Protein, Quantitative 10.00H, Random Vancomycin Level 31.3 09/10/19 11:43: Bedside Glucose (Misc Panel) 302H CBC/BMP Laboratory Tests 09/10/19 06:24 Microbiology Microbiology 09/06/19 Anaerobic Culture, Received Pending 09/06/19 Gram Stain - Final, Complete 09/06/19 Abscess Culture - Final, Complete Staphylococcus Sp Coag Neg 09/06/19 Blood Culture - Preliminary, Resulted No Growth after 72 hours. All specime... 09/06/19 Blood Culture - Preliminary, Resulted No Growth after 72 hours. All specime... NIYAH RIVERA MD Sep 10, 2019 16:09
--- NOTE | 2019-09-10 18:08 | CR ---
DATE OF CONSULTATION: 09/10/2019 REASON FOR CONSULTATION: Persisting left foot infection. Sukumar Aguirre is a pleasant 34-year-old male who was admitted to [facility] with left foot infection. He was evaluated initially by Dr. Contreras, who brought him to the operating room on September 06 for an incision and drainage. He was re-evaluated by infectious disease and had MRI, which showed persisting infection and purulent drainage. I was asked to evaluate and see if further incision and drainage was required. PAST MEDICAL HISTORY: Significant for diabetes. PAST SURGICAL HISTORY: 1. Appendectomy. 2. Foot incision and drainage. ALLERGIES: PENICILLIN. REVIEW OF SYSTEMS: Positive for fevers, maximal temperature 100.5, most recent 99.1. Labs are reviewed. White blood cell count 12.1, up from 10.8. CRP is 10. MRI from September 09 shows soft tissue swelling and plantar ulceration, which is consistent with the site of incision and drainage as well as soft tissue gas and edema with fluid pockets around the 1st and 2nd toes as well as some concern for osteomyelitis of the 2nd metatarsal toe. Lower extremity examination: Significant erythema and edema with a large amount of purulent drainage is noted from the dorsal and plantar incision sites. ASSESSMENT: A 34-year-old diabetic male with persisting abscess, left foot. PLAN: We will plan to bring him to the operating room tomorrow for repeat incision and drainage. He is to be nothing by mouth at midnight.
[2019-09-10] MEDS: LEVEMIR (INSULIN DETEMIR) 1 UNITS/0.01ML SC SCH (21:26)
[2019-09-10 22:00] VITALS: BP 129/82
[2019-09-11] VITALS (8 sets, daily range): BP systolic 125–136; BP diastolic 79–94
--- NOTE | 2019-09-11 02:44 | PHACANCOPD ---
PHARMACY VANCOMYCIN DOSING Pt Demographics Demographics Patient Age:34 , Weight:112.600 , Gender: male Adjusted Body Weight Date: 09/06/19, Adjusted Body Weight: [86.08] Kg Events Past 24 Hours Events Past 24 Hours: NO: Dialysis, Diuretic Therapy, Change in CrCl, Fever, Elevation in WBC, Pending Diagnostics, Pending Procedures, Other Vancomycin Vancomycin indication: DIABETIC FOOT INFECTION (SSTI) Vancomycin Target Ranges: 10-20 mcg/ml Vancomycin Load Y/N: Yes Load Dose Date Time Vancomycin Load Dose: 2000MG Date: 09/06/18 Time: 1900 Vancomycin Dose Date: 09/11/19. Current Vancomycin Dose: [1.5G Q8H ] Intermittent Dosing?: No Labs Labs Item Value Date Time White Blood Count 12.4 10^3/uL H 09/10/19 0624 Glomerular Filtration Rate > 60.0 09/10/19 0624 Blood Urea Nitrogen 9 MG/DL 09/10/19 0624 Creatinine 0.78 MG/DL 09/10/19 0624 Vancomycin Level Trough 12.6 UG/ML 09/11/19 0149 Vital Signs Label Value Date Time Patient Temperature 98.4 degrees F 09/10/19 2200 Temperature Source Temporal 09/10/19 2200 Micro Microbiology 09/06/19 Anaerobic Culture, Received Pending 09/06/19 Gram Stain - Final, Complete 09/06/19 Abscess Culture - Final, Complete Staphylococcus Sp Coag Neg 09/06/19 Blood Culture - Preliminary, Resulted No Growth after 72 hours. All specime... 09/06/19 Blood Culture - Preliminary, Resulted No Growth after 72 hours. All specime... Creatinine Clearance Date:09/08/19. Creatinine Clearance: [169ML/MIN]. Date:09/06/19. Creatinine Clearance: [ 136 mL/min ]. Assessment and Plan Maintaining Current Dose?: Yes Reason for dose change: No Dose Change Pharmacist Note Pharmacist Note Date: 09/11/19. Pharmacist note: Trough of 12.6 is within target range, will continue current dosing. Will monitor and make adjustments as needed. JACKLYN WADSWORTH PHARMACY Sep 11, 2019 02:44
[2019-09-11] MEDS: VANCOMYCIN HCL 500 MG in D5W MINI-BAG PLUS 100 ML IV SCH ×3 (03:09→18:19)
[2019-09-11] MEDS: VANCOMYCIN HCL 1,000 MG, VIAL MATE ADAPTER 1 EACH in D5W 250 ML IV SCH ×3 (04:23→20:16)
[2019-09-11] MEDS: MEROPENEM INJ 1 GM in IV 1 EA IV SCH ×3 (05:36→21:19)
[2019-09-11 07:06] LABS: HEMOGLOBIN 12.7 g/dl (13.5-17.5); MEAN CORPUSCULAR HEMOGLOBIN 27.6 pg (27.0-33.0); MEAN CORPUSCULAR HGB CONC 32.6 g/dl (32.0-36.5); MEAN CORPUSCULAR VOLUME 84.8 fl (80.0-96.0); PLATELET COUNT, AUTOMATED 450 10^3/uL (150-450); WHITE BLOOD COUNT 8.6 10^3/uL (4.0-10.0)
[2019-09-11] MEDS: HumaLOG INSULIN (NovoLOG) PER UNIT SC SCH ×4 (07:30→21:42)
[2019-09-11 07:33] LABS: BLOOD UREA NITROGEN 9 MG/DL (7-18); C REACTIVE PROTEIN QUANTITATIV 7.44 MG/DL (0.00-0.30); CALCIUM LEVEL 8.8 MG/DL (8.5-10.1); CARBON DIOXIDE LEVEL 28 MEQ/L (21-32); CHLORIDE LEVEL 96 MEQ/L (98-107); CREATININE FOR GFR 0.77 MG/DL (0.70-1.30); GLOMERULAR FILTRATION RATE > 60.0 (>60); GLUCOSE, FASTING 288 MG/DL (70-100); POTASSIUM SERUM 4.6 MEQ/L (3.5-5.1); SODIUM LEVEL 132 MEQ/L (136-145)
[2019-09-11] MEDS ORDERED: dexameTHASONE 4 MG/ML 1ML VIAL (J1100) As Ordered ONE (08:46)
[2019-09-11] MEDS ORDERED: LIDOCAINE 2% INJ 100 MG/5 ML SDV (FOR ANES.) As Ordered ONE (08:46)
[2019-09-11] MEDS ORDERED: ONDANSETRON 4MG/2ML VIAL (J2405) As Ordered ONE (08:46)
[2019-09-11] MEDS ORDERED: propofoL 200 MG/20 ML VIAL As Ordered ONE ×2 (08:46→11:09)
[2019-09-11] MEDS ORDERED: SUGAMMADEX SODIUM 500 MG/5 ML VIAL (BRIDION) As Ordered ONE (08:54)
[2019-09-11] MEDS ORDERED: LEVEMIR (INSULIN DETEMIR) 1 UNITS/0.01ML SC ONE (09:00)
[2019-09-11] MEDS ORDERED: LIDOCAINE 1% MDV 20ML VIAL As Ordered ONE (10:19)
[2019-09-11] MEDS ORDERED: BUPIVACAINE HCL 0.5% 10 ML VIAL As Ordered ONE (10:19)
[2019-09-11] MEDS ORDERED: MIDAZOLAM INJ 2 MG/2 ML VIAL (J2250) As Ordered ONE (10:36)
[2019-09-11] MEDS ORDERED: fentaNYL 100 MCG/2 ML INJECTION (J3010) As Ordered ONE (10:37)
--- NOTE | 2019-09-11 11:07 | IPNPDOC ---
Date Seen The patient was seen on 09/11/19. Progress Note SUBJECTIVE: Patient still has no complaints. Afebrile overnight. WBC 8.6 BS elevated 200-300s. Levemir increased. Plan for OR for surgical debridement of wound today with Podiatry. OBJECTIVE PHYSICAL EXAMINATION: General: Alert, mild distress Eyes: Normal sclera, EOMI HENT: Atraumatic Cardiovascular: Normal rate, normal rhythm. Pulmonary: Clear to auscultation b/l, no wheezing GI: Soft, nontender, nondistended Skin: b/l LE with multiple darkened skin changes. L. foot with overlying bandage with swelling, malodorous. Neuro: CN grossly intact. No focal deficits. Strengths equal b/l. Psych: oriented x 3 LABORATORY DATA: See below. IMAGING: L. foot XR- Diffuse soft tissue swelling. No acute bony abnormality. Plantar heel spurring. No soft tissue gas seen. L. foot MRI- 1. Ulceration of the plantar aspect of the forefoot with extensive soft tissue edema and pockets of fluid surrounding the 1st and 2nd digits. 2. Moderate edema within the head of the 2nd metatarsal and base of the 2nd proximal phalanx as well as within the distal phalanx and head of the proximal phalanx with enhancement. Consistent with early osteomyelitis. MICROBIOLOGY: Please see below. ASSESSMENT AND PLAN: 1. L. diabetic foot abscess - s/p drainage. - XR with evidence of soft tissue swelling but no bony abnormality, however MRI shows evidence of early osteomyelitis. - OR for debridement with podiatry today. - c/w IV broad spectrum abx meropenem and vancomycin. blood cultures negative to date. - Failed outpatient PO abx with Clindamycin and levaquin. - Pain control. ID following. 2. DM - resume equivalent dose levemir for home regimen with ISS coverage. Has been requiring increasing doses. - consistent carbohydrate diet. DVT ppx: HSQ Code status: Full code VS, I&O, 24H, Fishbone Vital Signs/I&O Vital Signs Date Time Temp Pulse Resp B/P (MAP) Pulse Ox O2 Delivery O2 Flow Rate FiO2 09/11/19 06:00 99.2 76 18 126/79 (95) 94 Room Air I&O- Last 24 Hours up to 6 AM 09/11/19 06:00 Intake Total 3950 ml Output Total 1000 ml Balance 2950 ml Laboratory Data 24H LABS Laboratory Tests 2 09/10/19 11:43: Bedside Glucose (Misc Panel) 302H 09/10/19 17:01: Bedside Glucose (Misc Panel) 316H 09/10/19 20:17: Bedside Glucose (Misc Panel) 335H 09/11/19 01:49: Vancomycin Level Trough 12.6 09/11/19 06:49: Nucleated Red Blood Cells % (auto) 0.0, Anion Gap 8, Glomerular Filtration Rate > 60.0, Calcium Level 8.8, C-Reactive Protein, Quantitative 7.44H CBC/BMP Laboratory Tests 09/11/19 06:49 Microbiology Microbiology 09/06/19 Anaerobic Culture, Received Pending 09/06/19 Gram Stain - Final, Complete 09/06/19 Abscess Culture - Final, Complete Staphylococcus Sp Coag Neg 09/06/19 Blood Culture - Preliminary, Resulted No Growth after 72 hours. All specime... 09/06/19 Blood Culture - Preliminary, Resulted No Growth after 72 hours. All specime... NIYAH RIVERA MD Sep 11, 2019 11:07
[2019-09-11] MEDS ORDERED: HumaLOG INSULIN (NovoLOG) PER UNIT As Ordered ONE (11:58)
[2019-09-11] MEDS ORDERED: ONDANSETRON 4MG/2ML VIAL (J2405) IV PRN (12:00)
[2019-09-11] MEDS ORDERED: fentaNYL 100 MCG/2 ML INJECTION (J3010) IV PRN (12:00)
[2019-09-11] MEDS ORDERED: PERCOCET 5MG/325MG TAB PO PRN (12:00)
[2019-09-11] MEDS ORDERED: LR 1,000 ML IV SCH (12:00)
[2019-09-11] MEDS ORDERED: NS 1,000 ML IV SCH (12:45)
[2019-09-11] MEDS ORDERED: ASPIRIN 300 MG SUPP PR ONE (12:45)
[2019-09-11] MEDS ORDERED: HumaLOG INSULIN (NovoLOG) PER UNIT SC ONE (13:00)
[2019-09-11] MEDS: PERCOCET 5MG/325MG TAB PO PRN ×2 (18:01→23:02)
[2019-09-11] MEDS ORDERED: LEVEMIR (INSULIN DETEMIR) 1 UNITS/0.01ML SC SCH (21:00)
[2019-09-12 02:00] VITALS: BP 129/82
[2019-09-12] MEDS: VANCOMYCIN HCL 500 MG in D5W MINI-BAG PLUS 100 ML IV SCH ×3 (03:26→18:39)
[2019-09-12] MEDS: VANCOMYCIN HCL 1,000 MG, VIAL MATE ADAPTER 1 EACH in D5W 250 ML IV SCH ×3 (04:23→20:13)
[2019-09-12 04:45] VITALS: BP 114/81
[2019-09-12] MEDS: ACETAMINOPHEN 500 MG TAB PO PRN ×2 (04:58→20:35)
[2019-09-12] MEDS: MEROPENEM INJ 1 GM in IV 1 EA IV SCH ×3 (05:47→22:03)
[2019-09-12 06:27] LABS: HEMATOCRIT 37.3 % (42.0-52.0); MEAN CORPUSCULAR HEMOGLOBIN 27.3 pg (27.0-33.0); MEAN CORPUSCULAR HGB CONC 32.2 g/dl (32.0-36.5); MEAN CORPUSCULAR VOLUME 84.8 fl (80.0-96.0); PLATELET COUNT, AUTOMATED 462 10^3/uL (150-450); WHITE BLOOD COUNT 8.8 10^3/uL (4.0-10.0)
[2019-09-12 07:04] LABS: BLOOD UREA NITROGEN 11 MG/DL (7-18); C REACTIVE PROTEIN QUANTITATIV 6.49 MG/DL (0.00-0.30); CALCIUM LEVEL 8.6 MG/DL (8.5-10.1); CARBON DIOXIDE LEVEL 30 MEQ/L (21-32); CHLORIDE LEVEL 95 MEQ/L (98-107); CREATININE FOR GFR 0.94 MG/DL (0.70-1.30); GLOMERULAR FILTRATION RATE > 60.0 (>60); GLUCOSE, FASTING 308 MG/DL (70-100); POTASSIUM SERUM 3.9 MEQ/L (3.5-5.1); SODIUM LEVEL 130 MEQ/L (136-145)
[2019-09-12] MEDS: HumaLOG INSULIN (NovoLOG) PER UNIT SC SCH ×4 (07:45→20:14)
[2019-09-12] MEDS: PERCOCET 5MG/325MG TAB PO PRN ×3 (07:45→21:25)
--- NOTE | 2019-09-12 07:46 | RO ---
DATE OF PROCEDURE: 09/11/2019 PREPROCEDURE DIAGNOSIS: Left foot infection. POSTPROCEDURE DIAGNOSIS: Left foot infection. PROCEDURE: Left foot incision and drainage. SURGEON: Dr. Cory Cameron COSTUMER: None. ANESTHESIA: Monitored anesthesia care with preoperative injection of 20 mL of 1:1 mixture of 1% lidocaine plain and 1/2% Marcaine plain. ESTIMATED BLOOD LOSS: Minimal. MATERIALS: #2-0 nylon. INJECTABLES: None. COMPLICATIONS: None. CONDITION: Stable. DESCRIPTION OF PROCEDURE: Sukumar Aguirre is a 34-year-old diabetic male who was admitted to the hospital with left foot infection. He had previous incision and drainage. He was since noted to have continued drainage and elevation of his white blood cell count. MRI findings showed some suggestion of osteomyelitis as well as soft tissue air around the previous incision and site. The foot was inspected. There was purulence coming from the dorsal and plantar incisions as well as some duskiness to the hallux. Decision was made to bring him to the operating room for repeat incision and drainage. The patient site and side were identified and marked in preoperative holding area. Consent was reviewed and obtained. All the risks, complications and alternatives to the procedure were explained to the patient in detail and all questions were answered. The patient was brought to the operating room and placed on the operating room in supine position. Monitored anesthesia care was delivered by the anesthesia department. Preoperative injection of 20 mL of 1:1 mixture of 1% lidocaine plain and 0.50% Marcaine plain were injected into the left ankle. The left foot was prepped and draped in normal sterile fashion. A tourniquet was applied to the left ankle, but was not used or inflated during the procedure. The foot again was inspected. There was duskiness to the left hallux as well as necrosis along the medial aspect of the hallus. There was significant purulence coming from the dorsal incision as well as some from the plantar incision. A incision was extended dorsally and through the interspace of the first interspace using #15 blade. There was also an incision made along the medial hallux. Significant purulence was coming out. This was removed and debrided with a rongeur. Then irrigated with pulse lavage 3000 mL of saline. No further purulent drainage was identified. The interspace incision was repaired with #2-0 nylon. The wounds were packed with saline soaked gauze. Dry gauze dressing was applied over top. The patient was brought to the postanesthesia care unit (PACU) with vital signs stable and neurovascular status intact. He will be readmitted to the floor for continued antibiotics and monitoring. Did discuss that he is at risk for amputation of the hallux and possible second toe depending on progression of infection and blood flow.
--- NOTE | 2019-09-12 12:32 | IPN ---
DATE OF SERVICE: 09/12/2019 The patient is seen and examined. Fevers overnight. States his foot feels a little bit better than it did yesterday. PHYSICAL EXAMINATION: The foot was examined. Maximum temperature (t-max) is 102.5. Lower foot examination, no significant purulence is noted in the interspace incisions, dorsally or plantarly. There is trace purulence around the medial hallux incision. There is some necrotic tissue around the medial aspect of the hallux. The distal and plantar hallux have good capillary refill. LABORATORY DATA: White blood cell count is 8.8, C-reactive protein is 6.49. ASSESSMENT: 34-year-old diabetic male, status post incision and drainage. Continue antibiotics. Dr. Contreras will be returning tomorrow. We will sign off unless there are any further issues.
[2019-09-12 14:00] VITALS: BP 117/80
--- NOTE | 2019-09-12 16:31 | IPNPDOC ---
Date Seen The patient was seen on 09/12/19. Progress Note SUBJECTIVE: Patient states he feels fine. Febrile this morning Tmax 102.5. Fever had since resolved. WBC 8.8. BS remained uncontrolled. Levemir increased from 50 to 60 units yesterday. BS 300. Anaerobic culture + Prevotella Bivia OBJECTIVE PHYSICAL EXAMINATION: General: Alert, mild distress Eyes: Normal sclera, EOMI HENT: Atraumatic Cardiovascular: Normal rate, normal rhythm. Pulmonary: Clear to auscultation b/l, no wheezing GI: Soft, nontender, nondistended Skin: b/l LE with multiple darkened skin changes. L. foot with overlying bandage with swelling, malodorous. Neuro: CN grossly intact. No focal deficits. Strengths equal b/l. Psych: oriented x 3 LABORATORY DATA: See below. IMAGING: L. foot XR- Diffuse soft tissue swelling. No acute bony abnormality. Plantar heel spurring. No soft tissue gas seen. L. foot MRI- 1. Ulceration of the plantar aspect of the forefoot with extensive soft tissue edema and pockets of fluid surrounding the 1st and 2nd digits. 2. Moderate edema within the head of the 2nd metatarsal and base of the 2nd proximal phalanx as well as within the distal phalanx and head of the proximal phalanx with enhancement. Consistent with early osteomyelitis. MICROBIOLOGY: Please see below. ASSESSMENT AND PLAN: 1. L. diabetic foot abscess - s/p I and D x 2. - XR with evidence of soft tissue swelling but no bony abnormality, however MRI shows evidence of early osteomyelitis. - c/w IV broad spectrum abx meropenem and vancomycin. blood cultures negative. Wound gram stain + staph and anerobic Prevotella bivia - Failed outpatient PO abx with Clindamycin and levaquin. - Pain control. ID following. 2. DM - Levemir resumed home dose but has been increasing daily still with poor control. - Continue dose adjustment. - consistent carbohydrate diet. DVT ppx: HSQ Code status: Full code VS, I&O, 24H, Fishbone Vital Signs/I&O Vital Signs Date Time Temp Pulse Resp B/P (MAP) Pulse Ox O2 Delivery O2 Flow Rate FiO2 09/12/19 15:11 18 09/12/19 14:00 99.5 88 117/80 (92) 97 Room Air 09/11/19 11:45 2 I&O- Last 24 Hours up to 6 AM 09/12/19 06:00 Intake Total 5360 ml Output Total 2845 ml Balance 2515 ml Laboratory Data 24H LABS Laboratory Tests 2 09/11/19 16:59: Bedside Glucose (Misc Panel) 377H 09/11/19 21:27: Bedside Glucose (Misc Panel) 451H 09/12/19 06:07: Nucleated Red Blood Cells % (auto) 0.0, Anion Gap 5L, Glomerular Filtration Rate > 60.0, Calcium Level 8.6, C-Reactive Protein, Quantitative 6.49H 09/12/19 09:52: Vancomycin Level Trough 10.9 09/12/19 12:35: Bedside Glucose (Misc Panel) 321H CBC/BMP Laboratory Tests 09/12/19 06:07 Microbiology Microbiology 09/06/19 Anaerobic Culture - Final, Complete Prevotella Bivia 09/06/19 Gram Stain - Final, Complete 09/06/19 Abscess Culture - Final, Complete Staphylococcus Sp Coag Neg 09/06/19 Blood Culture - Final, Complete NO GROWTH AFTER 5 DAYS 09/06/19 Blood Culture - Final, Complete NO GROWTH AFTER 5 DAYS NIYAH RIVERA MD Sep 12, 2019 16:31
--- NOTE | 2019-09-12 17:36 | IPNPDOC ---
Date Seen The patient was seen on 09/12/19. Progress Note SUBJECTIVE: Patient is a 34 year old male who states he feels fine, he noted that he felt hot as if he had a fever this morning. It was confirmed with a Tmax 102.5. Fever has since resolved, pt has received Tylenol. Culture showed: Anaerobic culture + Prevotella Bivia OBJECTIVE PHYSICAL EXAMINATION: General: Alert, non-distressed, unkempt Cardiovascular: Normal rate, normal rhythm, no murmurs, no rubs, no gallops. Pulmonary: Clear to auscultation b/l, no wheezing, no rales, no rhonchi GI: Soft, nontender, nondistended, no tenderness noted in al four quadrants Skin: Left foot covered with overlying bandage with swelling, malodorous. Left hallux remains swollen and erythematous but is not as tender prior to I&D, noted that skin is sloughing around the digit. Palmar surface is tender to palpation. There are three incisions- one on the medial aspect of the hallux about 5 cm in length, one on the dorsal surface which is about 3 cm in length, and the last one on the palmar surface which is about 7 cm in length. All are draining well, well-perfused, without purulent drainage. Psych: oriented x 3 LABORATORY DATA: See below. IMAGING: L. foot XR: Diffuse soft tissue swelling. No acute bony abnormality. Plantar heel spurring. No soft tissue gas seen. L. foot MRI: 1. Ulceration of the plantar aspect of the forefoot with extensive soft tissue edema and pockets of fluid surrounding the 1st and 2nd digits. 2. Moderate edema within the head of the 2nd metatarsal and base of the 2nd proximal phalanx as well as within the distal phalanx and head of the proximal phalanx with enhancement. Consistent with early osteomyelitis. MICROBIOLOGY: Please see below. ASSESSMENT AND PLAN: 1. L. diabetic foot abscess - s/p I and D x 2. - XR with evidence of soft tissue swelling but no bony abnormality, however MRI shows evidence of early osteomyelitis. - Blood cultures were negative. Wound gram stain + staph and anaerobic Prevotella bivia. - c/w IV broad spectrum abx Meropenem and Vancomycin until pt is afebrile for 48 hours. After criteria is met, consider Metronidazole and TMP/SMX for gram negative anaerobic coverage DISPOSITION: Continue with antibiotics Meropenem and Vancomycin until pt is afebrile for 48 hours. After which consider Metronidazole and TMP/SMX. Pt was discussed with Infectious Disease preceptor Dr. Lisa Barr. VS, I&O, 24H, Fishbone Vital Signs/I&O Vital Signs Date Time Temp Pulse Resp B/P (MAP) Pulse Ox O2 Delivery O2 Flow Rate FiO2 09/12/19 15:11 18 09/12/19 14:00 99.5 88 117/80 (92) 97 Room Air 09/11/19 11:45 2 I&O- Last 24 Hours up to 6 AM 09/12/19 06:00 Intake Total 5360 ml Output Total 2845 ml Balance 2515 ml Laboratory Data 24H LABS Laboratory Tests 2 09/11/19 21:27: Bedside Glucose (Misc Panel) 451H 09/12/19 06:07: Nucleated Red Blood Cells % (auto) 0.0, Anion Gap 5L, Glomerular Filtration Rate > 60.0, Calcium Level 8.6, C-Reactive Protein, Quantitative 6.49H 09/12/19 09:52: Vancomycin Level Trough 10.9 09/12/19 12:35: Bedside Glucose (Misc Panel) 321H 09/12/19 17:05: Bedside Glucose (Misc Panel) 325H CBC/BMP Laboratory Tests 09/12/19 06:07 Microbiology Microbiology 09/06/19 Anaerobic Culture - Final, Complete Prevotella Bivia 09/06/19 Gram Stain - Final, Complete 09/06/19 Abscess Culture - Final, Complete Staphylococcus Sp Coag Neg 09/06/19 Blood Culture - Final, Complete NO GROWTH AFTER 5 DAYS 09/06/19 Blood Culture - Final, Complete NO GROWTH AFTER 5 DAYS GME ATTESTATION GME ATTESTATION My faculty preceptor for this patient encounter was physically present during the encounter and was fully available. All aspects of the patient interview, examination, medical decision making process, and medical care plan development were reviewed and approved by the faculty preceptor. The faculty preceptor is aware and concurs with the plan as stated in the body of this note and will attest to such by his/her cosignature. MARK MARTINEZ OMS-IV Sep 12, 2019 17:36
[2019-09-12] MEDS: LEVEMIR (INSULIN DETEMIR) 1 UNITS/0.01ML SC SCH (20:14)
[2019-09-13] VITALS (8 sets, daily range): BP systolic 96–146; BP diastolic 57–100
[2019-09-13] MEDS: VANCOMYCIN HCL 500 MG in D5W MINI-BAG PLUS 100 ML IV SCH (02:58)
[2019-09-13] MEDS: VANCOMYCIN HCL 1,000 MG, VIAL MATE ADAPTER 1 EACH in D5W 250 ML IV SCH ×5 (04:24→23:13)
[2019-09-13] MEDS: MEROPENEM INJ 1 GM in IV 1 EA IV SCH ×3 (05:55→22:08)
[2019-09-13] MEDS: HEPARIN SOD (PORCINE) 5000 UNITS/ML VIAL (J1644 PER 1000UNITS) SC SCH ×3 (06:14→21:30)
[2019-09-13] MEDS: ACETAMINOPHEN 500 MG TAB PO PRN ×2 (06:15→19:06)
[2019-09-13] MEDS: PERCOCET 5MG/325MG TAB PO PRN ×3 (06:55→20:18)
[2019-09-13] MEDS: LEVEMIR (INSULIN DETEMIR) 1 UNITS/0.01ML SC SCH ×2 (08:24→21:29)
[2019-09-13] MEDS: HumaLOG INSULIN (NovoLOG) PER UNIT SC SCH ×5 (08:25→21:30)
[2019-09-13] MEDS ORDERED: propofoL 200 MG/20 ML VIAL As Ordered ONE ×2 (14:35→17:46)
[2019-09-13] MEDS ORDERED: LIDOCAINE 2% INJ 100 MG/5 ML SDV (FOR ANES.) As Ordered ONE (14:35)
[2019-09-13] MEDS ORDERED: ONDANSETRON 4MG/2ML VIAL (J2405) As Ordered ONE (14:38)
[2019-09-13] MEDS ORDERED: MIDAZOLAM INJ 2 MG/2 ML VIAL (J2250) As Ordered ONE (16:31)
[2019-09-13] MEDS ORDERED: fentaNYL 100 MCG/2 ML INJECTION (J3010) As Ordered ONE (16:31)
[2019-09-13] MEDS ORDERED: GENTAMICIN SULF INJ 80MG/2ML VIAL (J1580) As Ordered ONE (16:44)
[2019-09-13] MEDS ORDERED: LIDOCAINE 2% MDV 20 ML VIAL As Ordered ONE (17:26)
[2019-09-13] MEDS ORDERED: BUPIVACAINE HCL 0.5% 30 ML VIAL As Ordered ONE (17:26)
--- NOTE | 2019-09-13 17:50 | IPNPDOC ---
Date Seen The patient was seen on 09/13/19. Progress Note SUBJECTIVE: Patient is a 34 year old male who states he feels fine, he noted that he felt hot again this morning and woke up with a fever. It was confirmed with a Tmax 102.9 F. Fever has since resolved. Pt was seen by Dr Contreras who decided it was necessary to perform another incision and drainage. PT denies nausea, vomiting, diarrhea, constipation, hematuria. OBJECTIVE PHYSICAL EXAMINATION: General: Alert, non-distressed, unkempt, AAOx3 Cardiovascular: Normal rate, normal rhythm, no murmurs, no rubs, no gallops. Pulmonary: Clear to auscultation b/l, no wheezing, no rales, no rhonchi GI: Soft, nontender, nondistended, no tenderness noted in al four quadrants Skin: Foot not unwrapped today as pt was heading for surgery, will re-evaluate tomorrow 09/14. LABORATORY DATA: See below. IMAGING: Left foot XRay Diffuse soft tissue swelling. No acute bony abnormality. Plantar heel spurring. No soft tissue gas seen. Left foot MRI: 1. Ulceration of the plantar aspect of the forefoot with extensive soft tissue edema and pockets of fluid surrounding the 1st and 2nd digits. 2. Moderate edema within the head of the 2nd metatarsal and base of the 2nd pro ximal phalanx as well as within the distal phalanx and head of the proximal phalanx with enhancement. Consistent with early osteomyelitis. MICROBIOLOGY: Please see below. ASSESSMENT AND PLAN: Left diabetic foot abscess - s/p I and D x 2 and is going for a third today with Dr Durand - XR with evidence of soft tissue swelling but no bony abnormality, however MRI shows evidence of early osteomyelitis. - Blood cultures were negative. Wound gram stain + staph coag negative and anaerobic Prevotella bivia. - c/w IV broad spectrum abx Meropenem and Vancomycin until pt is afebrile for 48 hours. After criteria is met, consider Metronidazole and TMP/SMX for gram negative anaerobic coverage. Pt was febrile overnight, continue to wait for 48 hours without fever. DISPOSITION: Continue with antibiotics Meropenem and Vancomycin, Pt had a Tmax of 102.9 F this morning he is going for more I&D today, Dr Durand was called to send another Culture intraop, will continue with IV antibiotics for now. Pt was discussed with Infectious Disease preceptor Dr. Lisa Barr. VS, I&O, 24H, Fishbone Vital Signs/I&O Vital Signs Date Time Temp Pulse Resp B/P (MAP) Pulse Ox O2 Delivery O2 Flow Rate FiO2 09/13/19 13:57 17 09/13/19 13:10 98.7 73 111/66 (81) 96 Room Air 09/11/19 11:45 2 I&O- Last 24 Hours up to 6 AM 09/13/19 06:00 Intake Total 1630 ml Output Total 1900 ml Balance -270 ml Laboratory Data 24H LABS Laboratory Tests 2 09/12/19 17:05: Bedside Glucose (Misc Panel) 325H 09/12/19 20:00: Bedside Glucose (Misc Panel) 336H 09/13/19 08:06: Bedside Glucose (Misc Panel) 375H 09/13/19 09:52: Vancomycin Level Trough 10.9 09/13/19 12:18: Bedside Glucose (Misc Panel) 288H Microbiology Microbiology 09/06/19 Anaerobic Culture - Final, Complete Prevotella Bivia 09/06/19 Gram Stain - Final, Complete 09/06/19 Abscess Culture - Final, Complete Staphylococcus Sp Coag Neg 09/06/19 Blood Culture - Final, Complete NO GROWTH AFTER 5 DAYS 09/06/19 Blood Culture - Final, Complete NO GROWTH AFTER 5 DAYS MARK MARTINEZ OMS-IV Sep 13, 2019 15:38 Lisa Barr MD Sep 13, 2019 20:29
[2019-09-13] MEDS ORDERED: HumuLIN R (REGULAR) INSULIN (NovoLIN R) **100U/ML** PER UNIT As Ordered ONE (18:35)
--- NOTE | 2019-09-13 18:36 | IPN ---
DATE: 09/13/2019 Complains of 8/10 pain of the left foot, improved with oxycodone down to about 4/10 on a pain scale. The patient had a low temperature of 100.4 at 7:30 this morning, had a T-max of 102.9 at 6 a.m.; however, still on broad-spectrum antibiotics with vancomycin and meropenem. The patient is in postanesthesia care unit (PACU) for debridement by Dr. Cameron. Previous debridement was on 09/11/2019. Continues to have bloody drainage through the bandages today. The patient denies any chills, night sweats. T-max of 102.9. Current temperature 97.7, pulse 73. Sinus rhythm. Respiratory at 16. Blood pressure 111/66, 96% on room air. Generally, the patient is awake, alert, oriented, answers questions appropriately. No respiratory distress. Anicteric. No jaundice. No jugular venous distension (JVD), thyromegaly or cervical lymphadenopathy. Dry mucous membranes. Poor dentition with missing teeth and significant dental caries. No thyromegaly. Lungs are clear to auscultation. No wheezes, rales or rhonchi. Heart: S1, S2, sinus rhythm. No murmurs, rubs or gallops. Abdomen: Obese, soft, nontender, nondistended. Positive bowel sounds in four quadrants. No hepatosplenomegaly or abdominal bruits. Extremities: Left foot with blood drainage, bandaged, malodorous. Lower extremities have chronic venous changes. LABORATORY DATA: White count 8.3, hemoglobin 12, hematocrit 37, platelet count 462. Sodium 130, potassium is 3.9, chloride 95, bicarbonate 30, BUN 11, creatinine is 0.94. Glucose of 308. Anaerobic culture of left foot Prevotella bivia, left foot abscess coag negative staphylococcus. Imaging study: Foot Magnetic Resonance Imaging (MRI) 09/09 shows ulceration of plantar aspect of forefoot with extensive soft tissue edema, pockets of fluid surrounding the first and second digit. Moderate edema with the head of second metatarsal and base of second proximal phalanx, as well as distal phalanx and head of the proximal phalanx with enhancement consistent with early osteomyelitis. ASSESSMENT AND PLAN: This is a 34-year-old male with poorly controlled type diabetes, chronic foot diabetic ulcer now with osteomyelitis. IMPRESSION: 1. Early osteomyelitis of left foot, status post incision and drainage on 09/11/2019, now for debridement, currently on broad-spectrum antibiotics with vancomycin and meropenem. Microbiology grew out Prevotella and coag negative staphylococcus managed by infectious disease specialist with recurrent T-max of 102.9, white count is normal at 8.8. Sedimentation rate is improvement from a peak of 22.1 to 6.49. 2. Uncontrolled type 2 diabetes secondary to diabetic foot infection. The patient's Levemir insulin has been increased for better glycemic control at 45 units subcutaneous twice a day, on consistent carbohydrate diet, fingersticks and with coverage. 3. Deep vein thrombosis (DVT), prophylaxis currently held due t o planned debridement.
[2019-09-13] MEDS ORDERED: HumaLOG INSULIN (NovoLOG) PER UNIT As Ordered ONE (18:39)
[2019-09-13] MEDS: IBUPROFEN 600 MG TAB PO PRN (21:28)
[2019-09-14] VITALS: BP 113/53
[2019-09-14] MEDS: PERCOCET 5MG/325MG TAB PO PRN ×3 (03:22→17:52)
[2019-09-14] MEDS: IBUPROFEN 600 MG TAB PO PRN ×3 (03:35→19:03)
[2019-09-14] MEDS: VANCOMYCIN HCL 1,000 MG, VIAL MATE ADAPTER 1 EACH in D5W 250 ML IV SCH ×6 (04:36→22:31)
[2019-09-14 05:05] VITALS: BP 109/80
[2019-09-14] MEDS ORDERED: NS 500 ML IV ONE (05:30)
[2019-09-14] MEDS ORDERED: NS 1,000 ML IV ONE (05:30)
[2019-09-14 06:00] VITALS: BP 109/65
[2019-09-14 06:17] LABS: HEMATOCRIT 34.4 % (42.0-52.0); HEMOGLOBIN 11.1 g/dl (13.5-17.5); MEAN CORPUSCULAR HEMOGLOBIN 27.5 pg (27.0-33.0); MEAN CORPUSCULAR HGB CONC 32.3 g/dl (32.0-36.5); MEAN CORPUSCULAR VOLUME 85.4 fl (80.0-96.0); PLATELET COUNT, AUTOMATED 363 10^3/uL (150-450); RED BLOOD COUNT 4.03 10^6/uL (4.30-6.10); WHITE BLOOD COUNT 4.4 10^3/uL (4.0-10.0)
[2019-09-14] MEDS: HEPARIN SOD (PORCINE) 5000 UNITS/ML VIAL (J1644 PER 1000UNITS) SC SCH ×3 (06:30→22:31)
[2019-09-14 06:49] LABS: BLOOD UREA NITROGEN 16 MG/DL (7-18); C REACTIVE PROTEIN QUANTITATIV 2.89 MG/DL (0.00-0.30); CALCIUM LEVEL 7.7 MG/DL (8.5-10.1); CARBON DIOXIDE LEVEL 26 MEQ/L (21-32); CHLORIDE LEVEL 94 MEQ/L (98-107); CREATININE FOR GFR 0.99 MG/DL (0.70-1.30); GLOMERULAR FILTRATION RATE > 60.0 (>60); GLUCOSE, FASTING 355 MG/DL (70-100); POTASSIUM SERUM 3.7 MEQ/L (3.5-5.1); SODIUM LEVEL 126 MEQ/L (136-145)
[2019-09-14] MEDS: MEROPENEM INJ 1 GM in IV 1 EA IV SCH ×2 (07:29→16:03)
[2019-09-14] MEDS: HumaLOG INSULIN (NovoLOG) PER UNIT SC SCH ×8 (07:30→22:30)
[2019-09-14] MEDS: ACETAMINOPHEN 500 MG TAB PO PRN ×2 (08:02→16:03)
[2019-09-14] MEDS: LEVEMIR (INSULIN DETEMIR) 1 UNITS/0.01ML SC SCH ×2 (08:02→22:30)
[2019-09-14 09:20] VITALS: BP 114/66
--- NOTE | 2019-09-14 09:33 | RO ---
DATE OF PROCEDURE: 09/13/2019 PREPROCEDURE DIAGNOSIS: Abscess formation left foot. POSTPROCEDURE DIAGNOSIS: Abscess formation left foot. PROCEDURE: Incision and drainage of abscess left foot. SURGEON: Gus Contreras DPM BOILER TESTER: None ANESTHESIA: Local MAC ESTIMATED BLOOD LOSS: 10 mL. DESCRIPTION OF PROCEDURE: On 09/13/2019, this 34 -year-old male was taken from his hospital room to the operating room and placed on the operating room table in a supine position. There were three previous excisions noted on the left foot, one over the dorsal first interspace, one on the plantar aspect of the second metatarsal extending to the plantar fascia and then medial over the first metatarsal phalangeal joint. These incisions were explored. There was noted to be an abscess formation on the medial aspect extending down into the plantar wound. This area was opened. Unfortunately, the ulcer from the medial aspect extended onto the dorsal and plantar aspect of the foot. Completely opening these wounds through an incision would have devascularized the hallux. Therefore, these wounds were opened along a linear path deep to the neurovascular structure, therefore, keeping this arterial vasculature intact. The wound was copiously lavaged with 3 liters of dilute gentamicin solution with a low pressure pulse lavage system and the wound was packed open with 1 inch Iodoform gauze. No further purulence was expressed, but the purulence that was expressed prior to pulse lavage was cultured aerobic and anaerobically. The patient having apparently tolerated the surgical procedure well was taken from the operating room (OR) to the recovery room for further monitoring by the anesthesia department. Postoperative instructions will be given upon discharge. DIOMEDES
[2019-09-14] MEDS: NS 1,000 ML IV SCH ×2 (10:31→18:42)
[2019-09-14 10:32] VITALS: BP 112/66
--- NOTE | 2019-09-14 21:09 | IPNPDOC ---
Text Note Date of Service The patient was seen on 09/14/19. NOTE SUBJECTIVE Mr. Aguirre is a 34-year-old male who has unfortunately undergone multiple debridement procedures to his diabetic foot. He has been quite febrile with a MAXIMUM TEMPERATURE of 104. He has continued febrile over the course of the day. OBJECTIVE: Please see vital signs below Physical exam: General: The patient is awake and fully conversant, he is nontoxic appearing, he has been warm, intact HEENT: Neck is supple with no adenopathy or thyromegaly. Oral mucosa is tacky, patient wears glasses Cardiovascular: Regular rate and rhythm with a normal S1 and S2 and no a ppreciable murmur or bruit Lungs: He has been clear to auscultation. Abdomen: Soft, nontender, nondistended, notable central obesity/overall large body habitus Extremities foot is wrapped in compression dressing and patient is concerned about his ability to bear weight ASSESSMENT/PLAN: Persistent fever. This has been of unclear etiology despite having positive wound cultures in the past. He is status post multiple debridements. Underlying concern remains for osteomyelitis. Sets of cultures have been obtained given the persistence of his fever. Antipyretic use is maximal. VS,Fishbone, I+O VS, Fishbone, I+O Laboratory Tests 09/14/19 06:00 Vital Signs Date Time Temp Pulse Resp B/P (MAP) Pulse Ox O2 Delivery O2 Flow Rate FiO2 09/14/19 18:22 18 Room Air 09/14/19 17:00 103.4 09/14/19 11:10 104 94 09/14/19 10:32 112/66 (81) 09/13/19 18:20 2 I&O- Last 24 Hours up to 6 AM 09/14/19 06:00 Intake Total 2710 ml Output Total 1920 ml Balance 790 ml DANTE TANG MD Sep 14, 2019 21:09
[2019-09-14 22:00] VITALS: BP 103/57
[2019-09-15] MEDS: MEROPENEM INJ 1 GM in IV 1 EA IV SCH ×2 (00:07→06:56)
[2019-09-15] MEDS: PERCOCET 5MG/325MG TAB PO PRN ×4 (00:18→22:35)
[2019-09-15] MEDS: IBUPROFEN 600 MG TAB PO PRN ×3 (01:07→20:29)
[2019-09-15 02:00] VITALS: BP 101/58
[2019-09-15] MEDS: VANCOMYCIN HCL 1,000 MG, VIAL MATE ADAPTER 1 EACH in D5W 250 ML IV SCH ×6 (03:41→22:05)
[2019-09-15] MEDS: ACETAMINOPHEN 500 MG TAB PO PRN ×3 (03:43→20:26)
[2019-09-15] MEDS: HEPARIN SOD (PORCINE) 5000 UNITS/ML VIAL (J1644 PER 1000UNITS) SC SCH ×3 (05:26→21:01)
[2019-09-15 06:00] VITALS: BP 104/67
[2019-09-15] MEDS: HumaLOG INSULIN (NovoLOG) PER UNIT SC SCH ×7 (07:30→21:02)
[2019-09-15] MEDS: LEVEMIR (INSULIN DETEMIR) 1 UNITS/0.01ML SC SCH ×2 (08:23→21:02)
[2019-09-15] MEDS: NS 1,000 ML IV SCH ×4 (08:24→22:05)
[2019-09-15 09:44] LABS: BLOOD UREA NITROGEN 14 MG/DL (7-18); CALCIUM LEVEL 7.7 MG/DL (8.5-10.1); CARBON DIOXIDE LEVEL 27 MEQ/L (21-32); CHLORIDE LEVEL 98 MEQ/L (98-107); CREATININE FOR GFR 0.81 MG/DL (0.70-1.30); GLOMERULAR FILTRATION RATE > 60.0 (>60); GLUCOSE, FASTING 283 MG/DL (70-100); POTASSIUM SERUM 4.3 MEQ/L (3.5-5.1); SODIUM LEVEL 131 MEQ/L (136-145)
[2019-09-15 11:30] VITALS: BP 130/65
[2019-09-15 14:00] VITALS: BP 112/62
[2019-09-15] MEDS: metroNIDAZOLE (FLAGYL) 500 MG TAB PO SCH ×2 (16:02→21:00)
--- NOTE | 2019-09-15 17:02 | REP ---
Chest x-ray: Two views. History: Fever and ataxia. Findings: EKG monitoring electrodes overlie the chest. The lungs are well inflated and clear. The pleural angles are sharp. Heart size is normal. Pulmonary vasculature is not increased. There are degenerative changes in the thoracic spine. Impression: No active disease. Electronically Signed by Mikie Jerez MD 09/15/2019 04:54 P
[2019-09-15 17:19] LABS: BASO % 0.3 % (0.0-1.0); EOS % 0.3 % (0.0-3.0); LYMPH % 25.4 % (24.0-44.0); MONO # 0.1 10^3/uL (0.0-0.8); MONO % 3.7 % (0.0-5.0); NEUTROPHILS # 2.6 10^3/uL (1.5-8.5)
[2019-09-15] MEDS ORDERED: diphenhydrAMINE 25 MG CAP PO PRN (20:15)
[2019-09-15 20:29] VITALS: BP 150/82
--- NOTE | 2019-09-15 20:44 | IPNPDOC ---
Date Seen The patient was seen on 09/15/19. Progress Note SUBJECTIVE: Patient is a 34 year old male who states he feels fine, he noted that he felt hot again this morning and woke up with a fever. It was confirmed with a Tmax 104 F. Remained feverish throughout the day until 14:00. Pt states he can still see a rash on his sides and his stomach. PT denies nausea, vomiting, diarrhea, constipation, and hematuria. OBJECTIVE PHYSICAL EXAMINATION: General: Alert, non-distressed, unkempt, AAOx3 Cardiovascular: Normal rate, normal rhythm, no murmurs, no rubs, no gallops. Pulmonary: Clear to auscultation b/l, no wheezing, no rales, no rhonchi GI: Soft, nontender, nondistended, no tenderness noted in al four quadrants Skin: Right foot status post 3 debridements- 3 cm incision on dorsal aspect that forms connection to palmar aspect. 4 cm x 2 cm incision on the right hallux, tendons exposed. 8 cm incision on the palmar aspect. LABORATORY DATA: See below. MICROBIOLOGY: Please see below. ASSESSMENT AND PLAN: Left diabetic foot abscess - s/p I and D x3 - MRI displayed findings of early osteomyelitis - Discontinue Meropenem. Continue IV Vancomycin 1 gm Q8h. Switch to PO Metronidazole 500 mg Q8hr to continue antibiotic regimen for osteomyelitis. Rash on torso with fever/ no eosinophilia - Consider possible drug reaction to Meropenem. Discontinue Meropenem and switch to Metronidazole to avoid possible adverse side effects and observe changes, if any. - Switch to Metronidazole 500 mg PO Q8hr to cover Prevotella, coag negative staphylococcus, and other possible anaerobic organisms. DISPOSITION: Wait until possible drug reaction and fevers have subsided to consider discharge. Continue IV Vancomycin 1 gm Q8hr and switch to PO Metronidazole 500 mg Q8hr because of possible drug reaction to Meropenem. Once second intraop cultures available will deescalate IV vancomycin to PO Pt was discussed with Infectious Disease preceptor Dr. Lisa Barr. VS, I&O, 24H, Fishbone Vital Signs/I&O Vital Signs Date Time Temp Pulse Resp B/P (MAP) Pulse Ox O2 Delivery O2 Flow Rate FiO2 09/15/19 14:51 17 Room Air 09/15/19 14:00 98.8 89 112/62 (79) 94 09/13/19 18:20 2 I&O- Last 24 Hours up to 6 AM 09/15/19 06:00 Intake Total 4670 ml Output Total 2100 ml Balance 2570 ml Laboratory Data 24H LABS Laboratory Tests 2 09/14/19 21:31: Bedside Glucose (Misc Panel) 378H 09/15/19 07:57: Bedside Glucose (Misc Panel) 242H 09/15/19 08:48: Anion Gap 6L, Glomerular Filtration Rate > 60.0, Calcium Level 7.7L 09/15/19 11:12: Vancomycin Level Trough 16.2 09/15/19 12:09: Bedside Glucose (Misc Panel) 339H 09/15/19 16:58: Bedside Glucose (Misc Panel) 301H, Immature Granulocyte % (Auto) 1.3, Neutrophils (%) (Auto) 69.0H, Lymphocytes (%) (Auto) 25.4, Monocytes (%) (Auto) 3.7, Eosinophils (%) (Auto) 0.3, Basophils (%) (Auto) 0.3, Neutrophils # (Auto) 2.6, Lymphocytes # (Auto) 1.0L, Monocytes # (Auto) 0.1, Eosinophils # (Auto) 0.0, Basophils # (Auto) 0.0, Nucleated Red Blood Cells % (auto) 0.0 CBC/BMP Laboratory Tests 09/15/19 08:48 Microbiology Microbiology 09/14/19 Blood Culture - Preliminary, Resulted No growth after 24 hours . All specim... 09/14/19 Blood Culture - Preliminary, Resulted No growth after 24 hours . All specim... 09/13/19 Gram Stain - Final, Resulted 09/13/19 Wound Culture - Preliminary, Resulted Staphylococcus Sp Coag Neg 09/13/19 Anaerobic Culture - Final, Resulted 09/06/19 Anaerobic Culture - Final, Complete Prevotella Bivia 09/06/19 Gram Stain - Final, Complete 09/06/19 Abscess Culture - Final, Complete Staphylococcus Sp Coag Neg 09/06/19 Blood Culture - Final, Complete NO GROWTH AFTER 5 DAYS 09/06/19 Blood Culture - Final, Complete NO GROWTH AFTER 5 DAYS MARK MARTINEZ OMS-IV Sep 15, 2019 20:44 Lisa Barr MD Sep 16, 2019 10:09
--- NOTE | 2019-09-15 21:21 | IPNPDOC ---
Text Note Date of Service The patient was seen on 09/15/19. NOTE SUBJECTIVE Mr. Aguirre is a 34-year-old male who has unfortunately undergone multiple debridement procedures to his diabetic foot. He has been quite febrile with a MAXIMUM TEMPERATURE of 104. He has continued febrile over the course of the day. OBJECTIVE: Please see vital signs below Physical exam: General: The patient is awake and fully conversant, he is nontoxic appearing, he has been warm, intact HEENT: Neck is supple with no adenopathy or thyromegaly. Oral mucosa is tacky, patient wears glasses Cardiovascular: Regular rate and rhythm with a normal S1 and S2 and no a ppreciable murmur or bruit Lungs: He has been clear to auscultation. Abdomen: Soft, nontender, nondistended, notable central obesity/overall large body habitus Extremities foot is wrapped in compression dressing and patient is concerned about his ability to bear weight ASSESSMENT/PLAN: Persistent fever. This has been of unclear etiology despite having positive wound cultures in the past. He is status post multiple debridements. Underlying concern remains for osteomyelitis. Repeat sets of cultures have been obtained given the persistence of his fever. Antipyretic use is maximal. Hyponatremia Serum sodium 127 - 131, improving. VS,Fishbone, I+O VS, Fishbone, I+O Laboratory Tests 09/15/19 08:48 Vital Signs Date Time Temp Pulse Resp B/P (MAP) Pulse Ox O2 Delivery O2 Flow Rate FiO2 09/15/19 20:29 104.4 114 19 150/82 (104) 94 Room Air 09/13/19 18:20 2 I&O- Last 24 Hours up to 6 AM 09/15/19 06:00 Intake Total 4670 ml Output Total 2100 ml Balance 2570 ml DANTE TANG MD Sep 15, 2019 21:21
[2019-09-15 22:30] VITALS: BP 120/77
[2019-09-16] VITALS (35 sets, daily range): BP systolic 80–137; BP diastolic 42–83
[2019-09-16] MEDS: IBUPROFEN 600 MG TAB PO PRN ×2 (03:55→17:37)
[2019-09-16] MEDS: NS 1,000 ML IV SCH ×4 (04:55→20:44)
[2019-09-16] MEDS: VANCOMYCIN HCL 1,000 MG, VIAL MATE ADAPTER 1 EACH in D5W 250 ML IV SCH ×2 (04:56→05:55)
[2019-09-16] MEDS ORDERED: LevoFLOXacin IV 750 MG in IV 1 EA IV SCH (05:00)
[2019-09-16] MEDS: PERCOCET 5MG/325MG TAB PO PRN ×3 (05:00→22:10)
[2019-09-16] MEDS ORDERED: ACETAMINOPHEN *IV* 1,000 MG in IV 1 EA IV ONE (05:00)
[2019-09-16 05:05] LABS: HEMATOCRIT 34.3 % (42.0-52.0); HEMOGLOBIN 11.5 g/dl (13.5-17.5); MEAN CORPUSCULAR HGB CONC 33.5 g/dl (32.0-36.5); MEAN CORPUSCULAR VOLUME 83.7 fl (80.0-96.0); PLATELET COUNT, AUTOMATED 266 10^3/uL (150-450)
[2019-09-16 05:25] LABS: ERYTHROCYTE SEDIMENTATION RATE 82 mm/hr (0-15)
[2019-09-16 05:29] LABS: BLOOD UREA NITROGEN 10 MG/DL (7-18); C REACTIVE PROTEIN QUANTITATIV 3.67 MG/DL (0.00-0.30); CALCIUM LEVEL 7.5 MG/DL (8.5-10.1); CARBON DIOXIDE LEVEL 28 MEQ/L (21-32); CHLORIDE LEVEL 97 MEQ/L (98-107); CREATININE FOR GFR 0.84 MG/DL (0.70-1.30); GLOMERULAR FILTRATION RATE > 60.0 (>60); GLUCOSE, FASTING 177 MG/DL (70-100); SODIUM LEVEL 130 MEQ/L (136-145)
[2019-09-16] MEDS: HEPARIN SOD (PORCINE) 5000 UNITS/ML VIAL (J1644 PER 1000UNITS) SC SCH ×3 (05:55→21:59)
--- NOTE | 2019-09-16 06:22 | IPNPDOC ---
Date Seen The patient was seen on 09/16/19. Progress Note I was called by nursing at 0352 because of elevated temp with an oral temp at 104.3, recheck rectal was 106.1. The patient was continued to appear red in color but this was the highest temp he has this admission. We have transferred the patient to ICU for close monitoring to bring his core temperature. He was evaluated in the ICU, stable. The left leg wound was examined, it appeared slight yellow and sanguineous drainage. The wound was cleaned with wound conduit cleaner and a wound culture was sent. Because of the continue fever, we discontinue the Metronidazole and added Levoquin for pseudomonas coverage and anorobic coverage. May deescalate per infectious disease recommendations. VS, I&O, 24H, Fishbone Vital Signs/I&O Vital Signs Date Time Temp Pulse Resp B/P (MAP) Pulse Ox O2 Delivery O2 Flow Rate FiO2 09/16/19 05:45 105.4 102 14 88 Room Air 09/16/19 05:00 106/55 (72) 09/13/19 18:20 2 I&O- Last 24 Hours up to 6 AM 09/16/19 05:59 Intake Total 8250 ml Output Total 2900 ml Balance 5350 ml Laboratory Data 24H LABS Laboratory Tests 2 09/15/19 07:57: Bedside Glucose (Misc Panel) 242H 09/15/19 08:48: Anion Gap 6L, Glomerular Filtration Rate > 60.0, Calcium Level 7.7L 09/15/19 11:12: Vancomycin Level Trough 16.2 09/15/19 12:09: Bedside Glucose (Misc Panel) 339H 09/15/19 16:58: Immature Granulocyte % (Auto) 1.3, Neutrophils (%) (Auto) 69.0H, Lymphocytes (%) (Auto) 25.4, Monocytes (%) (Auto) 3.7, Eosinophils (%) (Auto) 0.3, Basophils (%) (Auto) 0.3, Neutrophils # (Auto) 2.6, Lymphocytes # (Auto) 1.0L, Monocytes # (Auto) 0.1, Eosinophils # (Auto) 0.0, Basophils # (Auto) 0.0, Nucleated Red Blood Cells % (auto) 0.0, Bedside Glucose (Misc Panel) 301H 09/15/19 20:25: Bedside Glucose (Misc Panel) 312H 09/16/19 04:48: Nucleated Red Blood Cells % (auto) 0.0, Erythrocyte Sedimentation Rate 82H, Anion Gap 5L, Glomerular Filtration Rate > 60.0, Calcium Level 7.5L, C-Reactive Protein, Quantitative 3.67H CBC/BMP Laboratory Tests 09/15/19 08:48 09/16/19 04:48 Microbiology Microbiology 09/16/19 Blood Culture, Received Pending 09/14/19 Blood Culture - Preliminary, Resulted No growth after 24 hours . All specim... 09/14/19 Blood Culture - Preliminary, Resulted No growth after 24 hours . All specim... 09/13/19 Gram Stain - Final, Resulted 09/13/19 Wound Culture - Preliminary, Resulted Staphylococcus Sp Coag Neg 09/13/19 Anaerobic Culture - Final, Resulted 09/06/19 Anaerobic Culture - Final, Complete Prevotella Bivia 09/06/19 Gram Stain - Final, Complete 09/06/19 Abscess Culture - Final, Complete Staphylococcus Sp Coag Neg 09/06/19 Blood Culture - Final, Complete NO GROWTH AFTER 5 DAYS 09/06/19 Blood Culture - Final, Complete NO GROWTH AFTER 5 DAYS GME ATTESTATION GME ATTESTATION My faculty preceptor for this patient encounter was physically present during the encounter and was fully available. All aspects of the patient interview, examination, medical decision making process, and medical care plan development were reviewed and approved by the faculty preceptor. The faculty preceptor is aware and concurs with the plan as stated in the body of this note and will attest to such by his/her cosignature. ATTENDING NOTE Was called by nursing about Mr. Aguirre rectal temp being 106. He is a gentleman with DM who was admitted for debridement of a diabetic foot ulcer by podiatry and has had fever since admission but within 101-102. He had vanc/kayla that was recently switched to vanc/PO flagyl given his micro data and noted allergy to penicillins, and this evening developed high fever, and was flushed. ID is on board. So we moved him to the ICU and starting him on a cooling blanket to 101, switched the flagyl to levaquin to still cover the anerobes but add pseudomonas coverage and recultured him. Otherwise remained hemodynamically stable. JOEY ALLEN DO Sep 16, 2019 06:22 BEST GRANDE MD Sep 16, 2019 07:01
[2019-09-16] MEDS: HumaLOG INSULIN (NovoLOG) PER UNIT SC SCH ×4 (08:04→20:44)
[2019-09-16] MEDS: LEVEMIR (INSULIN DETEMIR) 1 UNITS/0.01ML SC SCH (08:05)
--- NOTE | 2019-09-16 11:48 | IPN ---
DATE: 09/16/2019 Sukumar was transferred to the intensive care unit (ICU) yesterday because of fever up to 105.4 with shaking chills. The patient was hypotensive with a blood pressure of 87/49. He denies any nausea, vomiting, diarrhea, abdominal pain, shortness of breath or cough. His O2 sat dropped on room air to 88% and therefore he was placed on 2 liters oxygen. He does not complain of significant itching, but has a rash diffusely, erythroderma. LABORATORY DATA White count is 4, hemoglobin 11.5, hematocrit 34.3, platelets 266. ESR 82 down from 94. Sodium 130, potassium 4, chloride 97, bicarb 28, BUN 10, creatinine 0.84, glucose 177, calcium 7.5, CRP 3.67. Blood cultures ordered on 09/14/2019, two sets were negative. Blood culture 09/16/2019 is pending. Left foot culture intraoperatively from 09/13/2019 Staph coag negative, resistant to Bactrim. MEDICATIONS: The patient received one dose of levofloxacin on 09/16/2019 at 5:00 a.m. Tylenol IV. Metronidazole by mouth was discontinued on 09/15/2019. He received two doses. He has received so far seven days of IV vancomycin. Intraoperative wound cultures from 09/06/2019 had Staph coag negative and Prevotella Bivia and anaerobe. On 09/13/2019, wound culture had Staph coag negative sensitive to tetracycline, vancomycin, linezolid, and minocycline. PHYSICAL EXAMINATION: Sick looking gentleman in no acute distress. Temperature is 103.5, pulse 99, respirations 16, blood pressure 98/47, O2 sat 97% on 2 liters nasal cannula. Heart: Normal S1, S2. Tachycardiac. No murmurs appreciated. Lungs are clear. No wheezes, rales or rhonchi. Abdomen: Soft, nontender. No visceromegaly. Skin: Has diffuse erythroderma especially on the back and abdomen. He has multiple scabs hyperpigmented that are for the most part healed. Left foot has an incision in the mid foot and along the second metatarsal with clean granulation tissue. There is no purulent discharge and another incision on the dorsal aspect of the foot measuring 3 cm also without purulence. IMPRESSION: 1. Complicated skin and soft tissue infection of the left foot with early osteomyelitis of the second metatarsal, on IV vancomycin and meropenem, who developed worsening fever, most likely related to medication. Clinically his foot looks much better, but he needs continued antibiotics due to osteomyelitis and complicated infection. 2. Worsening fevers with improving CRP and foot findings consistent with drug related fever. Will discontinue IV vancomycin and meropenem. 3. Insulin-dependent diabetes with glucose persisting between 250 and 350. PLAN: Discontinue IV vancomycin. Discontinue IV Levaquin. The patient does not have an infectious process causing this fever. Chest x-ray PA and lateral was negative without any acute process. Resume by mouth Flagyl to cover for Prevotella along with linezolid 600 mg twice a day.
[2019-09-16] MEDS: LINEZOLID 600MG TABLET (ZYVOX) PO SCH ×2 (12:29→20:44)
[2019-09-16] MEDS: metroNIDAZOLE (FLAGYL) 500 MG TAB PO SCH ×2 (14:36→21:59)
--- NOTE | 2019-09-16 19:35 | IPNPDOC ---
Text Note Date of Service The patient was seen on 09/16/19. NOTE SUBJECTIVE ICU Mr. Aguirre is a 34-year-old male who has unfortunately undergone multiple debridement procedures to his diabetic foot. He has continued febrile with a MAXIMUM TEMPERATURE of 106.1 and has been moved to the ICU. OBJECTIVE: Please see vital signs below Physical exam: General: The patient is drowsy but conversant, HEENT: Neck is supple with no adenopathy or thyromegaly. Oral mucosa is tacky, patient wears glasses Cardiovascular: Regular rate and rhythm with a normal S1 and S2 and no appreciable murmur or bruit Lungs: He has been clear to auscultation. Abdomen: Soft, nontender, nondistended, notable central obesity/overall large body habitus Extremities foot is wrapped in compression, has occasional drainage ASSESSMENT/PLAN: Persistent fever. This has been of unclear etiology despite having positive wound cultures in the past. He is status post multiple debridements to his foot; underlying concern remains for osteomyelitis. Repeat sets of cultures have been obtained given the persistence of his fever but remain negative to date. Antipyretic use is maximal, patient also has cooling blanket. Antimicrobial coverage adjusted per ID services, drug fever possible contributory to fever. Hyponatremia Continues to improve with IV fluids. VS,Fishbone, I+O VS, Fishbone, I+O Laboratory Tests 09/16/19 04:48 Vital Signs Date Time Temp Pulse Resp B/P (MAP) Pulse Ox O2 Delivery O2 Flow Rate FiO2 09/16/19 19:00 101.8 97 110/56 (74) 93 Room Air 09/16/19 15:16 18 09/16/19 10:31 2.0 I&O- Last 24 Hours up to 6 AM 09/16/19 06:00 Intake Total 8880 ml Output Total 2900 ml Balance 5980 ml DANTE TANG MD Sep 16, 2019 19:35
[2019-09-16] MEDS ORDERED: LEVEMIR (INSULIN DETEMIR) 1 UNITS/0.01ML SC SCH (21:00)
[2019-09-16] MEDS: MORPHINE 2 MG/ML 1ML VIAL (J2270) IV PRN (23:51)
[2019-09-17] VITALS (21 sets, daily range): BP systolic 96–148; BP diastolic 52–91
[2019-09-17] MEDS: IBUPROFEN 600 MG TAB PO PRN ×3 (00:18→23:51)
[2019-09-17] MEDS: NS 1,000 ML IV SCH ×4 (03:59→23:51)
[2019-09-17] MEDS: HEPARIN SOD (PORCINE) 5000 UNITS/ML VIAL (J1644 PER 1000UNITS) SC SCH ×3 (05:13→21:08)
[2019-09-17] MEDS: PERCOCET 5MG/325MG TAB PO PRN ×3 (05:14→21:08)
[2019-09-17] MEDS: metroNIDAZOLE (FLAGYL) 500 MG TAB PO SCH ×3 (05:14→21:07)
[2019-09-17] MEDS: HumaLOG INSULIN (NovoLOG) PER UNIT SC SCH ×4 (07:30→21:00)
[2019-09-17] MEDS: LINEZOLID 600MG TABLET (ZYVOX) PO SCH ×2 (08:22→21:08)
[2019-09-17 09:27] LABS: BASO % 0.2 % (0.0-1.0); EOS % 0.3 % (0.0-3.0); HEMATOCRIT 34.8 % (42.0-52.0); HEMOGLOBIN 11.5 g/dl (13.5-17.5); LYMPH # 1.6 10^3/uL (1.5-5.0); LYMPH % 26.1 % (24.0-44.0); MEAN CORPUSCULAR VOLUME 84.9 fl (80.0-96.0); MONO # 0.2 10^3/uL (0.0-0.8); NEUTROPHILS # 4.3 10^3/uL (1.5-8.5); NEUTROPHILS % 70.1 % (36.0-66.0); PLATELET COUNT, AUTOMATED 272 10^3/uL (150-450); WHITE BLOOD COUNT 6.1 10^3/uL (4.0-10.0)
--- NOTE | 2019-09-17 09:52 | IPN ---
DATE: 09/17/2019 Sukumar feels well. No fever, chills or shortness of breath. He has suspected drug fever. He had no fevers overnight. PHYSICAL EXAMINATION: T-max 100.6. Vital signs stable. Blood pressure 129/84 Lungs: Clear. Heart: Regular rhythm. Abdomen: Soft, nontender. Extremities: No peripheral edema. LABS: No lab work ordered for today. IMPRESSION: 1. Fevers. Suspected drug fevers. Unfortunately I do not have any morning labs. I have ordered some stat lab work. Plan is to continue antibiotic therapy per ID consultation. 2. Diabetes. Blood sugars under good control. 3. Chronic wound. He follows with the wound clinic.
[2019-09-17 10:01] LABS: ALT/SGPT 66 U/L (12-78); BILIRUBIN,TOTAL 0.4 MG/DL (0.2-1.0); BLOOD UREA NITROGEN 8 MG/DL (7-18); CARBON DIOXIDE LEVEL 29 MEQ/L (21-32); CHLORIDE LEVEL 101 MEQ/L (98-107); GLOMERULAR FILTRATION RATE > 60.0 (>60); GLUCOSE, FASTING 85 MG/DL (70-100); POTASSIUM SERUM 3.4 MEQ/L (3.5-5.1); SODIUM LEVEL 135 MEQ/L (136-145)
[2019-09-17] MEDS: LEVEMIR (INSULIN DETEMIR) 1 UNITS/0.01ML SC SCH ×2 (10:47→21:06)
[2019-09-17] MEDS: MORPHINE 2 MG/ML 1ML VIAL (J2270) IV PRN (14:44)
[2019-09-18] VITALS (10 sets, daily range): BP systolic 101–127; BP diastolic 55–88
[2019-09-18 04:49] LABS: BASO % 0.3 % (0.0-1.0); EOS # 0.1 10^3/uL (0.0-0.5); EOS % 2.2 % (0.0-3.0); HEMATOCRIT 30.6 % (42.0-52.0); HEMOGLOBIN 9.9 g/dl (13.5-17.5); LYMPH # 1.1 10^3/uL (1.5-5.0); MEAN CORPUSCULAR HEMOGLOBIN 27.7 pg (27.0-33.0); MEAN CORPUSCULAR HGB CONC 32.4 g/dl (32.0-36.5); MEAN CORPUSCULAR VOLUME 85.7 fl (80.0-96.0); MONO # 0.1 10^3/uL (0.0-0.8); MONO % 4.4 % (0.0-5.0); NEUTROPHILS # 1.9 10^3/uL (1.5-8.5); NEUTROPHILS % 59.8 % (36.0-66.0); PLATELET COUNT, AUTOMATED 198 10^3/uL (150-450); RED BLOOD COUNT 3.57 10^6/uL (4.30-6.10); WHITE BLOOD COUNT 3.2 10^3/uL (4.0-10.0)
[2019-09-18 05:10] LABS: BLOOD UREA NITROGEN 8 MG/DL (7-18); CALCIUM LEVEL 7.2 MG/DL (8.5-10.1); CARBON DIOXIDE LEVEL 29 MEQ/L (21-32); CHLORIDE LEVEL 104 MEQ/L (98-107); CREATININE FOR GFR 0.56 MG/DL (0.70-1.30); GLOMERULAR FILTRATION RATE > 60.0 (>60); GLUCOSE, FASTING 201 MG/DL (70-100); POTASSIUM SERUM 3.7 MEQ/L (3.5-5.1); SODIUM LEVEL 138 MEQ/L (136-145)
[2019-09-18] MEDS: metroNIDAZOLE (FLAGYL) 500 MG TAB PO SCH ×3 (06:38→21:21)
[2019-09-18] MEDS: NS 1,000 ML IV SCH (06:38)
[2019-09-18] MEDS: PERCOCET 5MG/325MG TAB PO PRN ×3 (06:39→21:22)
[2019-09-18] MEDS: HEPARIN SOD (PORCINE) 5000 UNITS/ML VIAL (J1644 PER 1000UNITS) SC SCH ×3 (06:40→21:23)
[2019-09-18] MEDS: LEVEMIR (INSULIN DETEMIR) 1 UNITS/0.01ML SC SCH ×2 (08:32→21:23)
[2019-09-18] MEDS: HumaLOG INSULIN (NovoLOG) PER UNIT SC SCH ×4 (08:32→21:23)
[2019-09-18] MEDS: LINEZOLID 600MG TABLET (ZYVOX) PO SCH ×2 (08:32→21:22)
--- NOTE | 2019-09-18 13:35 | IPN ---
DATE: 09/18/2019 Sukumar is seen in the intensive care unit (ICU), feeling well. No change in status from yesterday. Has left foot lesion that is being treated with Flagyl and linezolid. He seems to be responding to this. He has only had one low-grade fever in the last 24 hours. PHYSICAL EXAMINATION: Maximum temperature (T-max) 100.6, current temperature (T-current) 97.1, vital signs stable. Alert, no distress. LUNGS: Clear. HEART: Regular rate and rhythm. ABDOMEN: Soft, nontender. No peripheral edema. Skin rash is fading. Left foot is dressed. LABORATORIES: White count 3.2, hemoglobin 9.9, platelets 198. Sodium 138, potassium 3.7, BUN 8, creatinine 0.5, glucose 201. IMPRESSION: 1. Fevers. Probably drug fevers. These seem to be abating. 2. Diabetic foot ulcer. Continue his current regimen. He seems to be responding to this. He is followed by wound clinic and also being seen by Dr. Barr from infectious disease, and Dr. Contreras from podiatry. 3. Diabetes. Blood sugar is well-controlled in the 100-200 range. Will transfer out of ICU today.
[2019-09-18] MEDS: MORPHINE 2 MG/ML 1ML VIAL (J2270) IV PRN ×2 (14:30)
[2019-09-19] MEDS: metroNIDAZOLE (FLAGYL) 500 MG TAB PO SCH ×3 (05:42→20:43)
[2019-09-19] MEDS: HEPARIN SOD (PORCINE) 5000 UNITS/ML VIAL (J1644 PER 1000UNITS) SC SCH ×3 (05:42→20:45)
[2019-09-19] MEDS: PERCOCET 5MG/325MG TAB PO PRN ×3 (05:43→20:45)
[2019-09-19 06:00] VITALS: BP 131/86
[2019-09-19] MEDS ORDERED: ONDANSETRON 4MG/2ML VIAL (J2405) IV PRN (06:00)
[2019-09-19 07:07] LABS: BASO % 0.3 % (0.0-1.0); EOS # 0.1 10^3/uL (0.0-0.5); EOS % 1.6 % (0.0-3.0); HEMATOCRIT 30.9 % (42.0-52.0); HEMOGLOBIN 9.9 g/dl (13.5-17.5); LYMPH # 1.1 10^3/uL (1.5-5.0); LYMPH % 29.3 % (24.0-44.0); MEAN CORPUSCULAR HEMOGLOBIN 27.5 pg (27.0-33.0); MEAN CORPUSCULAR VOLUME 85.8 fl (80.0-96.0); MONO # 0.2 10^3/uL (0.0-0.8); MONO % 5.6 % (0.0-5.0); NEUTROPHILS # 2.3 10^3/uL (1.5-8.5); NEUTROPHILS % 62.9 % (36.0-66.0); PLATELET COUNT, AUTOMATED 244 10^3/uL (150-450); WHITE BLOOD COUNT 3.7 10^3/uL (4.0-10.0)
[2019-09-19 07:35] LABS: BLOOD UREA NITROGEN 6 MG/DL (7-18); CALCIUM LEVEL 8.2 MG/DL (8.5-10.1); CARBON DIOXIDE LEVEL 29 MEQ/L (21-32); CHLORIDE LEVEL 102 MEQ/L (98-107); CREATININE FOR GFR 0.69 MG/DL (0.70-1.30); GLOMERULAR FILTRATION RATE > 60.0 (>60); GLUCOSE, FASTING 225 MG/DL (70-100); POTASSIUM SERUM 3.8 MEQ/L (3.5-5.1); SODIUM LEVEL 136 MEQ/L (136-145)
[2019-09-19] MEDS: HumaLOG INSULIN (NovoLOG) PER UNIT SC SCH ×4 (08:47→20:49)
[2019-09-19] MEDS: LEVEMIR (INSULIN DETEMIR) 1 UNITS/0.01ML SC SCH ×2 (08:47→21:00)
[2019-09-19] MEDS: LINEZOLID 600MG TABLET (ZYVOX) PO SCH ×2 (08:47→20:45)
[2019-09-19] MEDS: ONDANSETRON 4 MG ORAL DISINTEGRATING TAB (Q0162 PER 1MG) SL SCH ×4 (10:38→20:44)
--- NOTE | 2019-09-19 11:56 | IPNPDOC ---
Subjective Date Seen The patient was seen on 09/19/19. Subjective Chief Complaint/HPI Mr. Aguirre is a 34 year old male admitted to the hospital for management of a diabetic foot ulcer. Pt reported this foot ulcer has been an issue for some time now. He was going to the wound clinic; however when asked, he seems to find it difficult to strictly adhere to recommendations. ie. strict blood sugar control at home and keeping off the foot. Otherwise, he has reported some nausea to this a.m. PO Helen has resolved that Sx. General: Reports: Normal Appetite; Denies: Chills, Night Sweats, Fatigue, Malaise Constitutional: Denies: Chills, Fever, Night Sweats Eyes: Denies: Pain ENT: Denies: Head Aches Skin: Reports: Lesions, Breakdown; Denies: Rash Pulmonary: Denies: Dyspnea, Cough Cardiovascular: Denies: Chest Pain, Palpitations, Lt Headedness Gastrointestinal: Reports: Nausea, Vomiting (x1); Denies: Abdominal Pain, Diarrhea, Constipation Genitourinary: Denies: Dysuria, Retention Hematologic: Denies: Bruising, Bleeding Excessively Musculoskeletal: Denies: Neck Pain, Back Pain, Joint Pain, Muscle Pain, Spasms Neurological: Reports: Confusion; Denies: Weakness, Numbness Psych: Reports: Mood Normal Objective Physical Examination General Exam: Positive: Alert, Cooperative, No Acute Distress Eye Exam: Positive: PERRLA, Conjunctiva & lids normal, EOMI; Negative: Sclera icteric ENT Exam: Positive: Atraumatic, Mucous membr. moist/pink, Pharynx Normal Neck Exam: Positive: Supple; Negative: JVD, thyromegaly Chest Exam: Positive: Clear to auscultation, Normal air movement Heart Exam: Positive: Rate Normal, Regular Rhythm, Normal S1, Normal S2; Negative: Murmurs, Rubs Telemetry: Positive: No significant arrhythmia Abdomen Exam: Positive: Normal bowel sounds, Soft; Negative: Tenderness Extremity Exam: Positive: Edema (3+ edema L foot ), Normal pulses; Negative: Clubbing, Cyanosis Skin Exam: Positive: Nl turgor and temperature, Other skin issue (diabetic ulcer with bandages in place LLE involving the great toe; no purulence noted aruond the bandaging. poor sensation in affected foot ); Negative: Rash, Breakdown Neuro Exam: Positive: Normal Speech, Cranial Nerves 3-12 NL Psych Exam: Positive: Mood NL Assessment /Plan Assessment Mr. Aguirre is a 34 year old male admitted to the hospital for management of a diabetic foot ulcer. Pt has a PMHx which includes: Diabetes with R diabetic foot ulcer. Pt presented to the ED on 09/06 due to worsening pain in the L foot/wound. Pt had previously attended the wound clinic for management of the right foot; he reported he had been overcompensating for the R foot which resulted in a new wound on the L. The swelling and pain worsened over several weeks and he visited the hospital in [place] where he was treated with Clindamycin and Levaquin; he reported to [facility] ED when he noted no improvement after several days, fevers and chills at home. Podiatry has debrided the L foot (total of 3 times) and pt placed on Meropenem and Vanc. empirically which gradually resolved the leukocytosis. MRI of the L foot showed evidence of osteomyelitis; blood cultures x 2 negative, #3 no growth after 72 hours. Wound cultures of the foot have revealed - Staph. coag neg and P. bivia. Pt developed drug fevers, likley due to Meropenem which was held, Vanc continued and Flagyl started. Pt then transferred to ICU due to worsening fevers; rectal temp recorded at 106.1 with chills and hypotension 87/49. Flagyl was d/c and Levaquin started. I&D consulted - d/c IV vanc, Levaquin and Meropenem. Flagyl and Linezolid started. Pt progressed well and fevers resolved, he was transferred out of ICU 09/18 and continues to do well. Fevers - likely drug fevers - currently resolved Nausea/vomiting - no fever/chills/abdominal pain - Zofran provided relief, continue - continue symptomatic treatment and monitor closely during the day Diabetic foot ulcer - continue with Flagyl and Zyvox as Rx - wound with some dried blood and crusting around the bandages but surrounding tissue appears healthy and no purulent drainage from wound - pain controlled with morphine and Percocet - continued management per podiatry and I&D IDDM - FBS 225 this am. - Levemir with ISS and achs finger sticks - poor management at home; would benefit from DM nutrition counseling JFW: pt seen/examined, agree with note as above Plan/VTE VTE Prophylaxis Ordered?: Yes (Heparin ) VS, I&O, 24H, Fishbone Vital Signs/I&O Vital Signs Date Time Temp Pulse Resp B/P (MAP) Pulse Ox O2 Delivery O2 Flow Rate FiO2 09/19/19 06:13 15 09/19/19 06:00 97.6 94 131/86 (101) 96 Room Air 09/16/19 10:31 2.0 I&O- Last 24 Hours up to 6 AM 09/19/19 06:00 Intake Total 2040 ml Output Total 2100 ml Balance -60 ml Laboratory Data 24H LABS Laboratory Tests 2 09/18/19 11:57: Bedside Glucose (Misc Panel) 93 09/18/19 17:59: Bedside Glucose (Misc Panel) 184H 09/18/19 21:01: Bedside Glucose (Misc Panel) 274H 09/19/19 06:54: Immature Granulocyte % (Auto) 0.3, Neutrophils (%) (Auto) 62.9, Lymphocytes (%) (Auto) 29.3, Monocytes (%) (Auto) 5.6H, Eosinophils (%) (Auto) 1.6, Basophils (%) (Auto) 0.3, Neutrophils # (Auto) 2.3, Lymphocytes # (Auto) 1.1L, Monocytes # (Auto) 0.2, Eosinophils # (Auto) 0.1, Basophils # (Auto) 0.0, Nucleated Red Blood Cells % (auto) 0.0, Anion Gap 5L, Glomerular Filtration Rate > 60.0, Calcium Level 8.2L CBC/BMP Laboratory Tests 09/19/19 06:54 Microbiology Microbiology 09/16/19 Gram Stain - Final, Resulted 09/16/19 Wound Culture, Resulted Pending 09/16/19 Blood Culture - Preliminary, Resulted No Growth after 72 hours. All specime... 09/14/19 Blood Culture - Final, Complete NO GROWTH AFTER 5 DAYS 09/14/19 Blood Culture - Final, Complete NO GROWTH AFTER 5 DAYS 09/13/19 Gram Stain - Final, Complete 09/13/19 Wound Culture - Final, Complete Staphylococcus Sp Coag Neg 09/13/19 Anaerobic Culture - Final, Complete JASON STRONG PA-C Sep 19, 2019 11:56 Mac Gerard MD Sep 19, 2019 21:17
[2019-09-19 14:00] VITALS: BP 104/64
--- NOTE | 2019-09-19 20:48 | IPNPDOC ---
Date Seen The patient was seen on 09/19/19. Progress Note SUBJECTIVE: Patient is a 34 year old male who states he feels fine. Pt was admitted to the ICU over the weekend and downgraded yesterday. He had developed a fever with a Tmax of 105.4 F on Saturday 09/16- most likely a medication reaction to either Vancomycin or Meropenem. Pt's rash has mostly subsided with residual erythema on the lower portion of his abdomen. Pt admits to vomiting this morning, which he attributes the nausea to one of the antibiotics, most likely due to Linezolid. He denies any repeat vomiting. Pt denies fever, nausea, chest pain, shortness of breath, diarrhea, constipation, and hematuria. OBJECTIVE PHYSICAL EXAMINATION: General: Alert, non-distressed, unkempt, AAOx3 Cardiovascular: Normal rate, normal rhythm, no murmurs, no rubs, no gallops. Pulmonary: Clear to auscultation b/l, no wheezing, no rales, no rhonchi GI: Soft, nontender, nondistended, no tenderness noted in al four quadrants Skin: Skin: Has diffuse erythroderma especially on the back and abdomen. He has multiple scabs hyperpigmented that are for the most part healed. Left foot has an incision in the mid foot and along the second metatarsal with clean granulation tissue. There is no purulent discharge and another incision on the dorsal aspect of the foot measuring 3 cm also without purulence. LABORATORY DATA, IMAGING STUDIES, MICROBIOLOGY: Please see below. ASSESSMENT: Patient is a 34 year old male who states he feels fine. Pt was admitted to the ICU over the weekend and downgraded yesterday for drug fever reaction to Meropenem or Vancomycin. PLAN: 1. Complicated skin and soft tissue infection of the left foot with early osteomyelitis of the second metatarsal: IV Vancomycin and Meropenem were discontinued due to worsening fever, most likely related to these medications. Clinically his foot looks much better, but he needs continued antibiotics due to osteomyelitis and complicated infection. Continue PO Metronidazole 500 mg Q8hrs for Prevotella coverage and Linezolid 600 mg twice a day. Patient was seen and discussed with Dr Lisa Barr, infectious disease preceptor. GME ATTESTATION My faculty preceptor for this patient encounter was physically present during the encounter and was fully available. All aspects of the patient interview, examination, medical decision making process, and medical care plan development were reviewed and approved by the faculty preceptor. The faculty preceptor is aware and concurs with the plan as stated in the body of this note and will attest to such by his/her cosignature. VS, I&O, 24H, Fishbone Vital Signs/I&O Vital Signs Date Time Temp Pulse Resp B/P (MAP) Pulse Ox O2 Delivery O2 Flow Rate FiO2 09/19/19 14:00 97.9 69 16 104/64 (77) 96 Room Air 09/16/19 10:31 2.0 I&O- Last 24 Hours up to 6 AM 09/19/19 06:00 Intake Total 2040 ml Output Total 2100 ml Balance -60 ml Laboratory Data 24H LABS Laboratory Tests 2 09/18/19 17:59: Bedside Glucose (Misc Panel) 184H 09/18/19 21:01: Bedside Glucose (Misc Panel) 274H 09/19/19 06:54: Immature Granulocyte % (Auto) 0.3, Neutrophils (%) (Auto) 62.9, Lymphocytes (%) (Auto) 29.3, Monocytes (%) (Auto) 5.6H, Eosinophils (%) (Auto) 1.6, Basophils (%) (Auto) 0.3, Neutrophils # (Auto) 2.3, Lymphocytes # (Auto) 1.1L, Monocytes # (Auto) 0.2, Eosinophils # (Auto) 0.1, Basophils # (Auto) 0.0, Nucleated Red Blood Cells % (auto) 0.0, Anion Gap 5L, Glomerular Filtration Rate > 60.0, Calcium Level 8.2L 09/19/19 11:42: Bedside Glucose (Misc Panel) 175H CBC/BMP Laboratory Tests 09/19/19 06:54 Microbiology Microbiology 09/16/19 Gram Stain - Final, Resulted 09/16/19 Wound Culture, Resulted Pending 09/16/19 Blood Culture - Preliminary, Resulted No Growth after 72 hours. All specime... 09/14/19 Blood Culture - Final, Complete NO GROWTH AFTER 5 DAYS 09/14/19 Blood Culture - Final, Complete NO GROWTH AFTER 5 DAYS 09/13/19 Gram Stain - Final, Complete 09/13/19 Wound Culture - Final, Complete Staphylococcus Sp Coag Neg 09/13/19 Anaerobic Culture - Final, Complete ONMARK MENCHACA OMS-IV Sep 19, 2019 15:38
[2019-09-19 21:14] VITALS: BP 144/75
[2019-09-20] MEDS: ONDANSETRON 4 MG ORAL DISINTEGRATING TAB (Q0162 PER 1MG) SL SCH ×3 (00:03→09:16)
[2019-09-20 02:00] VITALS: BP 136/74
[2019-09-20] MEDS: metroNIDAZOLE (FLAGYL) 500 MG TAB PO SCH ×2 (04:38→14:00)
[2019-09-20] MEDS: HEPARIN SOD (PORCINE) 5000 UNITS/ML VIAL (J1644 PER 1000UNITS) SC SCH ×3 (04:38→21:03)
[2019-09-20 05:03] VITALS: BP 140/82
[2019-09-20 06:31] LABS: BASO % 0.2 % (0.0-1.0); EOS # 0.1 10^3/uL (0.0-0.5); EOS % 1.4 % (0.0-3.0); HEMATOCRIT 31.3 % (42.0-52.0); HEMOGLOBIN 10.2 g/dl (13.5-17.5); LYMPH # 1.1 10^3/uL (1.5-5.0); LYMPH % 22.1 % (24.0-44.0); MEAN CORPUSCULAR HEMOGLOBIN 27.8 pg (27.0-33.0); MEAN CORPUSCULAR HGB CONC 32.6 g/dl (32.0-36.5); MEAN CORPUSCULAR VOLUME 85.3 fl (80.0-96.0); MONO # 0.3 10^3/uL (0.0-0.8); MONO % 5.6 % (0.0-5.0); NEUTROPHILS # 3.5 10^3/uL (1.5-8.5); NEUTROPHILS % 70.1 % (36.0-66.0); PLATELET COUNT, AUTOMATED 317 10^3/uL (150-450); RED BLOOD COUNT 3.67 10^6/uL (4.30-6.10)
[2019-09-20] MEDS: ACETAMINOPHEN 500 MG TAB PO PRN (06:37)
[2019-09-20 07:09] LABS: BLOOD UREA NITROGEN 4 MG/DL (7-18); CALCIUM LEVEL 8.1 MG/DL (8.5-10.1); CARBON DIOXIDE LEVEL 24 MEQ/L (21-32); CHLORIDE LEVEL 104 MEQ/L (98-107); CREATININE FOR GFR 0.77 MG/DL (0.70-1.30); GLOMERULAR FILTRATION RATE > 60.0 (>60); GLUCOSE, FASTING 264 MG/DL (70-100); POTASSIUM SERUM 4.4 MEQ/L (3.5-5.1); SODIUM LEVEL 136 MEQ/L (136-145)
[2019-09-20] MEDS: HumaLOG INSULIN (NovoLOG) PER UNIT SC SCH ×4 (07:30→21:00)
[2019-09-20] MEDS: LINEZOLID 600MG TABLET (ZYVOX) PO SCH (08:28)
[2019-09-20] MEDS: LEVEMIR (INSULIN DETEMIR) 1 UNITS/0.01ML SC SCH ×2 (08:29→21:00)
[2019-09-20 09:10] VITALS: BP 125/79
[2019-09-20 09:41] VITALS: BP 126/78
[2019-09-20] MEDS: MORPHINE 2 MG/ML 1ML VIAL (J2270) IV PRN (13:29)
[2019-09-20 14:00] VITALS: BP 146/90
[2019-09-20] MEDS ORDERED: METOCLOPRAMIDE INJ 10MG/2ML VIAL (J2765) IV PRN (14:00)
--- NOTE | 2019-09-20 15:30 | IPNPDOC ---
Subjective Date Seen The patient was seen on 09/20/19. Subjective Chief Complaint/HPI Sukumar is c/o of nausea and vomiting this morning, he reports trouble swallowing his meds. He had a low-grade fever 100.1 F this morning, but is presently afebrile. he's c/o difficulty swallowing pills also. + diarrhea Objective Physical Examination General Exam: Positive: Alert, Cooperative, No Acute Distress Eye Exam: Positive: EOMI; Negative: Sclera icteric ENT Exam: Positive: Atraumatic, Mucous membr. moist/pink, Pharynx Normal Neck Exam: Positive: Supple; Negative: JVD, thyromegaly Chest Exam: Positive: Clear to auscultation, Normal air movement Heart Exam: Positive: Rate Normal, Regular Rhythm, Normal S1, Normal S2; Negative: Murmurs, Rubs Telemetry: Positive: No significant arrhythmia Abdomen Exam: Positive: Normal bowel sounds, Soft; Negative: Tenderness, Hepatospenomegaly Extremity Exam: Positive: Edema (3+ edema L foot ), Normal pulses; Negative: Clubbing, Cyanosis Skin Exam: Positive: Nl turgor and temperature, Other skin issue (bandage dressing intact. visible wound with some drainage); Negative: Rash, Breakdown Neuro Exam: Positive: Normal Speech, Cranial Nerves 3-12 NL Psych Exam: Positive: Mood NL Assessment /Plan Assessment # Nausea and Vomiting - suspect likely to zyvox + flagyl - stop zofran, and try reglan IV prn, monitor for adverse rxn # Dysphagia - can consider further w/u if does not resolve with reglan # Fever presumed to be due to abx medications - IV abx were stopped # Early left foot osteomyelitis - (+)ve cx growing coag (-) staph and prevotella - on zyvox + flagyl # IDDM2 - levemit 30 units bid - humalog SS prn - diabetic diet - monitor BG closely today if n/v not controlled by reglan # Diarrhea - check CDT Plan/VTE VTE Prophylaxis Ordered?: Yes (Heparin sq bid) VTE Exclusion Mechanical Proph: N/A:VTE Prophy Ordered VTE Exclusion Pharmacological: N/A:VTE Prophy Ordered VS, I&O, 24H, Fishbone Vital Signs/I&O Vital Signs Date Time Temp Pulse Resp B/P (MAP) Pulse Ox O2 Delivery O2 Flow Rate FiO2 09/20/19 14:00 99.6 81 16 146/90 (108) 93 Room Air 09/16/19 10:31 2.0 I&O- Last 24 Hours up to 6 AM 09/20/19 06:00 Intake Total 1200 ml Output Total 900 ml Balance 300 ml Laboratory Data 24H LABS Laboratory Tests 2 09/19/19 16:42: Bedside Glucose (Misc Panel) 190H 09/19/19 20:38: Bedside Glucose (Misc Panel) 183H 09/20/19 06:15: Immature Granulocyte % (Auto) 0.6, Neutrophils (%) (Auto) 70.1H, Lymphocytes (%) (Auto) 22.1L, Monocytes (%) (Auto) 5.6H, Eosinophils (%) (Auto) 1.4, Basophils (%) (Auto) 0.2, Neutrophils # (Auto) 3.5, Lymphocytes # (Auto) 1.1L, Monocytes # (Auto) 0.3, Eosinophils # (Auto) 0.1, Basophils # (Auto) 0.0, Nucleated Red Blood Cells % (auto) 0.0, Anion Gap 8, Glomerular Filtration Rate > 60.0, Calcium Level 8.1L 09/20/19 11:42: Bedside Glucose (Misc Panel) 231H CBC/BMP Laboratory Tests 09/20/19 06:15 Microbiology Microbiology 09/16/19 Gram Stain - Final, Complete 09/16/19 Wound Culture - Final, Complete Rothia Dentocariosa 09/16/19 Blood Culture - Preliminary, Resulted No Growth after 72 hours. All specime... 09/14/19 Blood Culture - Final, Complete NO GROWTH AFTER 5 DAYS 09/14/19 Blood Culture - Final, Complete NO GROWTH AFTER 5 DAYS 09/13/19 Gram Stain - Final, Complete 09/13/19 Wound Culture - Final, Complete Staphylococcus Sp Coag Neg 09/13/19 Anaerobic Culture - Final, Complete MANDY MILTON MD Sep 20, 2019 15:30
--- NOTE | 2019-09-20 17:40 | IPNPDOC ---
Date Seen The patient was seen on 09/20/19. Progress Note SUBJECTIVE: Patient is a 34 year old male who states he does not feel well, states he vomited last night and has been unable to take any medicine orally or eat any food today. Pt has developed a new rash that encompasses his torso, anteriorly and posteriorly. He also has new petechiae on his legs. Pt states that the rashes are not itchy. Pt also endorses two episodes of diarrhea and was wearing an adult diaper when seen. Pt denies fever, nausea, chest pain, shortness of breath, constipation, and hematuria. OBJECTIVE PHYSICAL EXAMINATION: General: Alert, non-distressed, unkempt, AAOx3 Cardiovascular: Normal rate, normal rhythm, no murmurs, no rubs, no gallops. Pulmonary: Clear to auscultation b/l, no wheezing, no rales, no rhonchi GI: Soft, nontender, nondistended, no tenderness noted in al four quadrants Skin: Skin: Has diffuse erythroderma especially on the back and abdomen. He has multiple scabs hyperpigmented that are for the most part healed. Left foot has an incision in the mid foot and along the second metatarsal with clean granulation tissue. There is no purulent discharge and another incision on the dorsal aspect of the foot measuring 3 cm also without purulence. Maculopapular rash that encompasses his chest and back, does not extend to arms or palms. Multiple petechiae on both legs, does not extend to feet or soles. LABORATORY DATA, IMAGING STUDIES, MICROBIOLOGY: Please see below. ASSESSMENT: Patient is a 34 year old diabetic male with Complicated skin and soft tissue infection of the left foot with early osteomyelitis of the second metatarsal:who has undergone three debridements. He was upgraded to ICU status over the weekend for suspicion of drug related fever T=105 and rash, now has developed GI issues with PO zyvox and flagyl with diarrhea and vomiting. PLAN: 1. Discontinue PO Metronidazole and Linezolid. Pt's symptoms of vomiting and GI upset are most likely due to antibiotics side effects. Discontinue to allow p atient bowel rest and to observe if rash subsides. Consider starting Doxycycline on 09/21 to continue antibiotic regimen if patient's GI symptoms are relieved. 2. Discussed rash with dermatology and rash thought to be from either Vancomycin or Meropenem that can cause a waxing and waning rash. Discontinue antibiotics to observe if rash subsides. Patient was seen and discussed with Dr Lisa Barr, infectious disease preceptor. GME ATTESTATION My faculty preceptor for this patient encounter was physically present during the encounter and was fully available. All aspects of the patient interview, examination, medical decision making process, and medical care plan development were reviewed and approved by the faculty preceptor. The faculty preceptor is aware and concurs with the plan as stated in the body of this note and will attest to such by his/her cosignature. VS, I&O, 24H, Fishbone Vital Signs/I&O Vital Signs Date Time Temp Pulse Resp B/P (MAP) Pulse Ox O2 Delivery O2 Flow Rate FiO2 09/20/19 14:00 99.6 81 16 146/90 (108) 93 Room Air 09/16/19 10:31 2.0 I&O- Last 24 Hours up to 6 AM 09/20/19 06:00 Intake Total 1200 ml Output Total 900 ml Balance 300 ml Laboratory Data 24H LABS Laboratory Tests 2 09/19/19 20:38: Bedside Glucose (Misc Panel) 183H 09/20/19 06:15: Immature Granulocyte % (Auto) 0.6, Neutrophils (%) (Auto) 70.1H, Lymphocytes (%) (Auto) 22.1L, Monocytes (%) (Auto) 5.6H, Eosinophils (%) (Auto) 1.4, Basophils (%) (Auto) 0.2, Neutrophils # (Auto) 3.5, Lymphocytes # (Auto) 1.1L, Monocytes # (Auto) 0.3, Eosinophils # (Auto) 0.1, Basophils # (Auto) 0.0, Nucleated Red Blood Cells % (auto) 0.0, Anion Gap 8, Glomerular Filtration Rate > 60.0, Calcium Level 8.1L 09/20/19 11:42: Bedside Glucose (Misc Panel) 231H 09/20/19 16:55: Bedside Glucose (Misc Panel) 274H CBC/BMP Laboratory Tests 09/20/19 06:15 Microbiology Microbiology 09/16/19 Gram Stain - Final, Complete 09/16/19 Wound Culture - Final, Complete Rothia Dentocariosa 09/16/19 Blood Culture - Preliminary, Resulted No Growth after 72 hours. All specime... 09/14/19 Blood Culture - Final, Complete NO GROWTH AFTER 5 DAYS 09/14/19 Blood Culture - Final, Complete NO GROWTH AFTER 5 DAYS 09/13/19 Gram Stain - Final, Complete 09/13/19 Wound Culture - Final, Complete Staphylococcus Sp Coag Neg 09/13/19 Anaerobic Culture - Final, Complete ONGMARK SIMONS OMS-IV Sep 20, 2019 17:40 Lisa Barr MD Sep 20, 2019 19:32
[2019-09-20 19:18] LABS: ERYTHROCYTE SEDIMENTATION RATE 106 mm/hr (0-15)
[2019-09-20] MEDS: DOXYCYCLINE HYCLATE 100 MG TAB PO SCH (21:03)
[2019-09-20 22:00] VITALS: BP 129/78
[2019-09-21] MEDS: HEPARIN SOD (PORCINE) 5000 UNITS/ML VIAL (J1644 PER 1000UNITS) SC SCH ×3 (05:23→20:24)
[2019-09-21 06:00] VITALS: BP 126/78
[2019-09-21 07:13] LABS: BASO % 0.2 % (0.0-1.0); EOS # 0.1 10^3/uL (0.0-0.5); EOS % 2.6 % (0.0-3.0); HEMATOCRIT 35.4 % (42.0-52.0); HEMOGLOBIN 11.2 g/dl (13.5-17.5); LYMPH # 1.5 10^3/uL (1.5-5.0); LYMPH % 27.9 % (24.0-44.0); MEAN CORPUSCULAR HEMOGLOBIN 27.4 pg (27.0-33.0); MEAN CORPUSCULAR HGB CONC 31.6 g/dl (32.0-36.5); MEAN CORPUSCULAR VOLUME 86.6 fl (80.0-96.0); MONO # 0.5 10^3/uL (0.0-0.8); MONO % 8.5 % (0.0-5.0); NEUTROPHILS # 3.2 10^3/uL (1.5-8.5); NEUTROPHILS % 60.2 % (36.0-66.0); PLATELET COUNT, AUTOMATED 339 10^3/uL (150-450); RED BLOOD COUNT 4.09 10^6/uL (4.30-6.10); WHITE BLOOD COUNT 5.3 10^3/uL (4.0-10.0)
[2019-09-21 07:37] LABS: BLOOD UREA NITROGEN 5 MG/DL (7-18); C REACTIVE PROTEIN QUANTITATIV 1.06 MG/DL (0.00-0.30); CARBON DIOXIDE LEVEL 30 MEQ/L (21-32); CHLORIDE LEVEL 104 MEQ/L (98-107); CREATININE FOR GFR 0.66 MG/DL (0.70-1.30); GLOMERULAR FILTRATION RATE > 60.0 (>60); GLUCOSE, FASTING 252 MG/DL (70-100); POTASSIUM SERUM 4.5 MEQ/L (3.5-5.1); SODIUM LEVEL 138 MEQ/L (136-145)
[2019-09-21] MEDS: HumaLOG INSULIN (NovoLOG) PER UNIT SC SCH ×4 (08:23→20:21)
[2019-09-21 09:00] VITALS: BP 136/76
[2019-09-21] MEDS: LEVEMIR (INSULIN DETEMIR) 1 UNITS/0.01ML SC SCH (09:00)
[2019-09-21] MEDS: PERCOCET 5MG/325MG TAB PO PRN ×2 (09:31→20:22)
[2019-09-21] MEDS: DOXYCYCLINE HYCLATE 100 MG TAB PO SCH ×2 (10:30→20:22)
--- NOTE | 2019-09-21 12:13 | IPNPDOC ---
Subjective Date Seen The patient was seen on 09/21/19. Subjective Chief Complaint/HPI Developed drug rash overnight, rash improved. Zyvox + flagyl stopped due to rash. He feels better this morning with resolution of nausea + vomiting. He's no longer c/o dysphagia. Objective Physical Examination General Exam: Positive: Alert, Cooperative, No Acute Distress Eye Exam: Positive: EOMI; Negative: Sclera icteric ENT Exam: Positive: Atraumatic, Mucous membr. moist/pink, Pharynx Normal Neck Exam: Positive: Supple; Negative: JVD, thyromegaly Chest Exam: Positive: Clear to auscultation, Normal air movement Heart Exam: Positive: Rate Normal, Regular Rhythm, Normal S1, Normal S2; Negative: Murmurs, Rubs Telemetry: Positive: No significant arrhythmia Abdomen Exam: Positive: Normal bowel sounds, Soft; Negative: Tenderness, Hepatospenomegaly Extremity Exam: Positive: Edema (3+ edema L foot ), Normal pulses; Negative: Clubbing, Cyanosis Skin Exam: Positive: Nl turgor and temperature, Rash (maculopapular rash improved c/w yesterday, distributed on ext and trunk), Other skin issue (bandage dressing intact. visible wound with some drainage); Negative: Breakdown Neuro Exam: Positive: Normal Speech, Cranial Nerves 3-12 NL Psych Exam: Positive: Mood NL Assessment /Plan Assessment # Nausea and Vomiting # Drug rash - suspect likely to zyvox + flagyl, these have been discontinued - switched to po doxy 100 mg bid - reglan IV prn # Early left foot osteomyelitis - (+)ve cx growing coag (-) staph, Rothia dentocaricosa and prevotella - on doxy # IDDM2 - increase levemir 35 units bid - humalog SS prn - diabetic diet # Diarrhea - check CDT Plan/VTE VTE Prophylaxis Ordered?: Yes (Heparin sq bid) VTE Exclusion Mechanical Proph: N/A:VTE Prophy Ordered VTE Exclusion Pharmacological: N/A:VTE Prophy Ordered VS, I&O, 24H, Fishbone Vital Signs/I&O Vital Signs Date Time Temp Pulse Resp B/P (MAP) Pulse Ox O2 Delivery O2 Flow Rate FiO2 09/21/19 10:01 18 09/21/19 09:20 99.3 95 Room Air 09/21/19 09:00 62 136/76 (96) 09/16/19 10:31 2.0 I&O- Last 24 Hours up to 6 AM 09/21/19 06:00 Intake Total 1300 ml Output Total 1350 ml Balance -50 ml Laboratory Data 24H LABS Laboratory Tests 2 09/20/19 16:55: Bedside Glucose (Misc Panel) 274H 09/20/19 20:28: Bedside Glucose (Misc Panel) 283H 09/21/19 06:45: Immature Granulocyte % (Auto) 0.6, Neutrophils (%) (Auto) 60.2, Lymphocytes (%) (Auto) 27.9, Monocytes (%) (Auto) 8.5H, Eosinophils (%) (Auto) 2.6, Basophils (%) (Auto) 0.2, Neutrophils # (Auto) 3.2, Lymphocytes # (Auto) 1.5, Monocytes # (Auto) 0.5, Eosinophils # (Auto) 0.1, Basophils # (Auto) 0.0, Nucleated Red Blood Cells % (auto) 0.0, Anion Gap 4L, Glomerular Filtration Rate > 60.0, Marty cium Level 8.0L, C-Reactive Protein, Quantitative 1.06H 09/21/19 11:36: Bedside Glucose (Misc Panel) 271H CBC/BMP Laboratory Tests 09/21/19 06:45 Microbiology Microbiology 09/16/19 Gram Stain - Final, Complete 09/16/19 Wound Culture - Final, Complete Rothia Dentocariosa 09/16/19 Blood Culture - Final, Complete NO GROWTH AFTER 5 DAYS 09/14/19 Blood Culture - Final, Complete NO GROWTH AFTER 5 DAYS 09/14/19 Blood Culture - Final, Complete NO GROWTH AFTER 5 DAYS 09/13/19 Gram Stain - Final, Complete 09/13/19 Wound Culture - Final, Complete Staphylococcus Sp Coag Neg 09/13/19 Anaerobic Culture - Final, Complete MANDY MILTON MD Sep 21, 2019 12:13
[2019-09-21 14:23] VITALS: BP 136/82
[2019-09-21] MEDS ORDERED: LEVEMIR (INSULIN DETEMIR) 1 UNITS/0.01ML SC SCH (21:00)
[2019-09-21 22:00] VITALS: BP 135/83
[2019-09-22] MEDS: HEPARIN SOD (PORCINE) 5000 UNITS/ML VIAL (J1644 PER 1000UNITS) SC SCH ×3 (05:51→21:06)
[2019-09-22 05:55] VITALS: BP 105/71
[2019-09-22 06:39] LABS: BASO % 0.4 % (0.0-1.0); EOS # 0.2 10^3/uL (0.0-0.5); EOS % 3.7 % (0.0-3.0); HEMATOCRIT 35.1 % (42.0-52.0); HEMOGLOBIN 11.6 g/dl (13.5-17.5); LYMPH # 1.5 10^3/uL (1.5-5.0); LYMPH % 31.6 % (24.0-44.0); MEAN CORPUSCULAR HEMOGLOBIN 28.4 pg (27.0-33.0); MONO # 0.5 10^3/uL (0.0-0.8); MONO % 9.9 % (0.0-5.0); NEUTROPHILS # 2.6 10^3/uL (1.5-8.5); PLATELET COUNT, AUTOMATED 381 10^3/uL (150-450); RED BLOOD COUNT 4.08 10^6/uL (4.30-6.10); WHITE BLOOD COUNT 4.8 10^3/uL (4.0-10.0)
[2019-09-22 07:06] LABS: BLOOD UREA NITROGEN 9 MG/DL (7-18); CALCIUM LEVEL 8.5 MG/DL (8.5-10.1); CARBON DIOXIDE LEVEL 29 MEQ/L (21-32); CHLORIDE LEVEL 102 MEQ/L (98-107); CREATININE FOR GFR 0.76 MG/DL (0.70-1.30); GLOMERULAR FILTRATION RATE > 60.0 (>60); GLUCOSE, FASTING 217 MG/DL (70-100); POTASSIUM SERUM 4.3 MEQ/L (3.5-5.1); SODIUM LEVEL 137 MEQ/L (136-145)
[2019-09-22] MEDS: HumaLOG INSULIN (NovoLOG) PER UNIT SC SCH ×4 (07:46→21:06)
[2019-09-22] MEDS: PERCOCET 5MG/325MG TAB PO PRN ×2 (07:46→21:05)
[2019-09-22 07:59] LABS: C REACTIVE PROTEIN QUANTITATIV 0.64 MG/DL (0.00-0.30)
[2019-09-22 08:30] VITALS: BP 131/78
--- NOTE | 2019-09-22 08:57 | REP ---
Left foot four views: Comparison is 09/06/2019. There is soft tissue edema of the great toe. Mineralization is normal. There are no lytic, blastic or destructive skeletal changes. I suspect air / gas within the soft tissues in the webspace between the great toe and second digit as an interval change. Lateral view there appears to be diffuse soft tissue edema of the forefoot as well. Impression: Soft tissue edema as described. Possibly air / gas within the soft tissues of the webspace between the great toe and second digit. No lytic, blastic or destructive skeletal changes. Electronically Signed by Hany Gonsalves MD 09/22/2019 08:48 A
[2019-09-22] MEDS: LEVEMIR (INSULIN DETEMIR) 1 UNITS/0.01ML SC SCH ×2 (09:12→21:05)
[2019-09-22] MEDS: DOXYCYCLINE HYCLATE 100 MG TAB PO SCH ×2 (09:53→21:04)
--- NOTE | 2019-09-22 11:18 | IPNPDOC ---
Subjective Date Seen The patient was seen on 09/22/19. Subjective Chief Complaint/HPI Rash resolving, and tolerating diet w/o recurrence of n/v. afebrile. Objective Physical Examination General Exam: Positive: Alert, No Acute Distress Eye Exam: Positive: EOMI; Negative: Sclera icteric ENT Exam: Positive: Mucous membr. moist/pink Neck Exam: Positive: Supple; Negative: JVD, thyromegaly Chest Exam: Positive: Normal air movement; Negative: Rales, Rhonchi, Wheezing Heart Exam: Positive: Rate Normal, Regular Rhythm, Normal S1, Normal S2; Negative: Murmurs, Rubs Telemetry: Positive: No significant arrhythmia Abdomen Exam: Positive: Normal bowel sounds, Soft; Negative: Tenderness, Hepatospenomegaly Extremity Exam: Positive: Edema (3+ edema L foot ), Normal pulses; Negative: Clubbing, Cyanosis Skin Exam: Positive: Nl turgor and temperature, Rash (rash continues to improve in all affected areas), Other skin issue (bandage dressing intact. visible wound with some drainage); Negative: Breakdown Neuro Exam: Positive: Normal Speech, Cranial Nerves 3-12 NL Psych Exam: Positive: Mood NL Assessment /Plan Assessment # Nausea and Vomiting # Drug rash - suspect likely to zyvox + flagyl, these have been discontinued - switched to po doxy 100 mg bid, he's tolerating this w/o adverse reactions - likely home in the next 1-2 days # Early left foot osteomyelitis - (+)ve cx growing coag (-) staph, Rothia dentocaricosa and prevotella - on doxy - repeat foot xray shows no bony destruction only some air bubbles - awaiting podiatry + ID input for duration of abx. Doxy has some anaerobic coverage # IDDM2 - increase levemir 40 units bid - humalog SS prn - diabetic diet - Patient states he usually does not eat this much at home, this explains his increased insulin needs - He's planning on following up with endocrinology as an outpatient Plan/VTE VTE Prophylaxis Ordered?: Yes (Heparin sq bid) VTE Exclusion Mechanical Proph: N/A:VTE Prophy Ordered VTE Exclusion Pharmacological: N/A:VTE Prophy Ordered VS, I&O, 24H, Fishbone Vital Signs/I&O Vital Signs Date Time Temp Pulse Resp B/P (MAP) Pulse Ox O2 Delivery O2 Flow Rate FiO2 09/22/19 08:30 98.4 90 16 131/78 (95) 95 Room Air 09/16/19 10:31 2.0 I&O- Last 24 Hours up to 6 AM 09/22/19 06:00 Intake Total 1720 ml Balance 1720 ml Laboratory Data 24H LABS Laboratory Tests 2 09/21/19 11:36: Bedside Glucose (Misc Panel) 271H 09/21/19 16:33: Bedside Glucose (Misc Panel) 291H 09/21/19 20:03: Bedside Glucose (Misc Panel) 303H 09/22/19 06:23: Immature Granulocyte % (Auto) 1.4, Neutrophils (%) (Auto) 53.0, Lymphocytes (%) (Auto) 31.6, Monocytes (%) (Auto) 9.9H, Eosinophils (%) (Auto) 3.7H, Basophils (%) (Auto) 0.4, Neutrophils # (Auto) 2.6, Lymphocytes # (Auto) 1.5, Monocytes # (Auto) 0.5, Eosinophils # (Auto) 0.2, Basophils # (Auto) 0.0, Nucleated Red Blood Cells % (auto) 0.0, Anion Gap 6L, Glomerular Filtration Rate > 60.0, Calcium Level 8.5, C-Reactive Protein, Quantitative 0.64H CBC/BMP Laboratory Tests 09/22/19 06:23 Microbiology Microbiology 09/16/19 Gram Stain - Final, Complete 09/16/19 Wound Culture - Final, Complete Rothia Dentocariosa 09/16/19 Blood Culture - Final, Complete NO GROWTH AFTER 5 DAYS 09/14/19 Blood Culture - Final, Complete NO GROWTH AFTER 5 DAYS 09/14/19 Blood Culture - Final, Complete NO GROWTH AFTER 5 DAYS 09/13/19 Gram Stain - Final, Complete 09/13/19 Wound Culture - Final, Complete Staphylococcus Sp Coag Neg 09/13/19 Anaerobic Culture - Final, Complete MANDY MILTON MD Sep 22, 2019 11:18
[2019-09-22 14:00] VITALS: BP 125/86
--- NOTE | 2019-09-22 16:49 | IPNPDOC ---
Date Seen The patient was seen on 09/22/19. Progress Note SUBJECTIVE: Patient is a 34 year old male who states he feels much better than he has the past couple days. Pt's rash has mostly subsided with some remnants on the ribs, rash is no longer erythematous. Pt denies fever, nausea, vomiting, chest pain, shortness of breath, diarrhea, constipation, and hematuria. OBJECTIVE PHYSICAL EXAMINATION: General: Alert, non-distressed, unkempt, AAOx3 Cardiovascular: Normal rate, normal rhythm, no murmurs, no rubs, no gallops. Pulmonary: Clear to auscultation b/l, no wheezing, no rales, no rhonchi GI: Soft, nontender, nondistended, no tenderness noted in al four quadrants Skin: Skin: Has diffuse erythroderma especially on the back and abdomen. He has multiple scabs hyperpigmented that are for the most part healed. Left foot has an incision in the mid foot and along the second metatarsal with clean granulation tissue. There is no purulent discharge and another incision on the dorsal aspect of the foot measuring 3 cm also without purulence. Maculopapular rash has subsided- some remnants on the sides, over his ribs. Petechiae of his legs has subsided. LABORATORY DATA, IMAGING STUDIES, MICROBIOLOGY: Please see below. ASSESSMENT: Patient is a 34 year old diabetic male with complicated skin and soft tissue infection of the left foot with early osteomyelitis of the second metatarsal:who has undergone three debridements. he had drug related fever T=105 and rash felt related to meropenem, he developed GI issues with PO zyvox and flagyl with diarrhea and vomiting both discontinued, started doxycycline yesterday and rash and fever have subsided. PLAN: 1. PO Metronidazole and Linezolid were discontinued because of GI symptoms. Pt started Doxycycline yesterday. Continue PO Doxycycline for two weeks. This is first week. Patient needs 6 weeks of antibiotics for suspicion of osteomyelitis- this is week two with end of therapy set for October 18 2019. 2. Discussed rash with dermatology and rash thought to be from either Vancomycin or Meropenem that can cause a waxing and waning rash. Discontinue antibiotics to observe if rash subsides. Rash has subsided and will continue Doxycycline. DISPOSITION: Pt has had complicated hospital course and is now clinically stable. Foot x-ray has shown that it is unlikely the pt has an abscess in his right foot. Drug rash has resolved. Continue PO doxycycline for at least 2 weeks with the earliest end date set for October 04. Pt is ready for hospital dischar ge- follow up with podiatry for wound closure. Patient was seen and discussed with Dr Lisa Barr, infectious disease preceptor. GME ATTESTATION My faculty preceptor for this patient encounter was physically present during the encounter and was fully available. All aspects of the patient interview, examination, medical decision making process, and medical care plan development were reviewed and approved by the faculty preceptor. The faculty preceptor is aware and concurs with the plan as stated in the body of this note and will attest to such by his/her cosignature. VS, I&O, 24H, Fishbone Vital Signs/I&O Vital Signs Date Time Temp Pulse Resp B/P (MAP) Pulse Ox O2 Delivery O2 Flow Rate FiO2 09/22/19 08:30 98.4 90 16 131/78 (95) 95 Room Air 09/16/19 10:31 2.0 I&O- Last 24 Hours up to 6 AM 09/22/19 06:00 Intake Total 1720 ml Balance 1720 ml Laboratory Data 24H LABS Laboratory Tests 2 09/21/19 16:33: Bedside Glucose (Misc Panel) 291H 09/21/19 20:03: Bedside Glucose (Misc Panel) 303H 09/22/19 06:23: Immature Granulocyte % (Auto) 1.4, Neutrophils (%) (Auto) 53.0, Lymphocytes (%) (Auto) 31.6, Monocytes (%) (Auto) 9.9H, Eosinophils (%) (Auto) 3.7H, Basophils (%) (Auto) 0.4, Neutrophils # (Auto) 2.6, Lymphocytes # (Auto) 1.5, Monocytes # (Auto) 0.5, Eosinophils # (Auto) 0.2, Basophils # (Auto) 0.0, Nucleated Red Blood Cells % (auto) 0.0, Anion Gap 6L, Glomerular Filtration Rate > 60.0, Calcium Level 8.5, C-Reactive Protein, Quantitative 0.64H 09/22/19 11:38: Bedside Glucose (Misc Panel) 237H CBC/BMP Laboratory Tests 09/22/19 06:23 Microbiology Microbiology 09/16/19 Gram Stain - Final, Complete 09/16/19 Wound Culture - Final, Complete Rothia Dentocariosa 09/16/19 Blood Culture - Final, Complete NO GROWTH AFTER 5 DAYS 09/14/19 Blood Culture - Final, Complete NO GROWTH AFTER 5 DAYS 09/14/19 Blood Culture - Final, Complete NO GROWTH AFTER 5 DAYS 09/13/19 Gram Stain - Final, Complete 09/13/19 Wound Culture - Final, Complete Staphylococcus Sp Coag Neg 09/13/19 Anaerobic Culture - Final, Complete MARK MARTINEZ OMS-IV Sep 22, 2019 14:01 Lisa Barr MD Sep 23, 2019 17:30
[2019-09-22 20:13] VITALS: BP 126/85
[2019-09-23] MEDS: HEPARIN SOD (PORCINE) 5000 UNITS/ML VIAL (J1644 PER 1000UNITS) SC SCH (05:54)
[2019-09-23 06:00] VITALS: BP 134/66
[2019-09-23 07:02] LABS: BASO % 0.4 % (0.0-1.0); EOS # 0.2 10^3/uL (0.0-0.5); EOS % 3.4 % (0.0-3.0); HEMATOCRIT 38.5 % (42.0-52.0); LYMPH # 1.7 10^3/uL (1.5-5.0); LYMPH % 35.5 % (24.0-44.0); MEAN CORPUSCULAR HEMOGLOBIN 27.1 pg (27.0-33.0); MEAN CORPUSCULAR HGB CONC 31.2 g/dl (32.0-36.5); MEAN CORPUSCULAR VOLUME 86.9 fl (80.0-96.0); MONO # 0.5 10^3/uL (0.0-0.8); MONO % 11.3 % (0.0-5.0); NEUTROPHILS # 2.2 10^3/uL (1.5-8.5); NEUTROPHILS % 47.9 % (36.0-66.0); PLATELET COUNT, AUTOMATED 426 10^3/uL (150-450); RED BLOOD COUNT 4.43 10^6/uL (4.30-6.10); WHITE BLOOD COUNT 4.7 10^3/uL (4.0-10.0)
[2019-09-23 07:23] LABS: BLOOD UREA NITROGEN 12 MG/DL (7-18); CALCIUM LEVEL 8.9 MG/DL (8.5-10.1); CARBON DIOXIDE LEVEL 29 MEQ/L (21-32); CHLORIDE LEVEL 103 MEQ/L (98-107); CREATININE FOR GFR 0.72 MG/DL (0.70-1.30); GLOMERULAR FILTRATION RATE > 60.0 (>60); GLUCOSE, FASTING 218 MG/DL (70-100); POTASSIUM SERUM 3.9 MEQ/L (3.5-5.1); SODIUM LEVEL 137 MEQ/L (136-145)
[2019-09-23] MEDS: HumaLOG INSULIN (NovoLOG) PER UNIT SC SCH ×2 (08:51→12:16)
[2019-09-23] MEDS: DOXYCYCLINE HYCLATE 100 MG TAB PO SCH (08:51)
[2019-09-23] MEDS: LEVEMIR (INSULIN DETEMIR) 1 UNITS/0.01ML SC SCH (08:51)
[2019-09-23] MEDS ORDERED: DOXY100T PO (10:00)
[2019-09-23] MEDS ORDERED: INSUDET SC (10:00)
--- NOTE | 2019-09-23 10:05 | IPNPDOC ---
Subjective Date Seen The patient was seen on 09/23/19. Subjective Chief Complaint/HPI Resting in bed, no issues. Rash has resolved Objective Physical Examination General Exam: Positive: Alert, No Acute Distress Eye Exam: Positive: EOMI; Negative: Sclera icteric ENT Exam: Positive: Mucous membr. moist/pink Neck Exam: Positive: Supple; Negative: JVD, thyromegaly Chest Exam: Positive: Normal air movement; Negative: Rales, Rhonchi, Wheezing Heart Exam: Positive: Rate Normal, Regular Rhythm, Normal S1, Normal S2; Negative: Murmurs, Rubs Telemetry: Positive: No significant arrhythmia Abdomen Exam: Positive: Normal bowel sounds, Soft; Negative: Tenderness, Hepatospenomegaly Extremity Exam: Positive: Edema (3+ edema L foot ), Normal pulses; Negative: Clubbing, Cyanosis Skin Exam: Positive: Nl turgor and temperature, Rash (rash continues to improve in all affected areas), Other skin issue (bandage dressing intact. visible wound with some drainage); Negative: Breakdown Neuro Exam: Positive: Normal Speech, Cranial Nerves 3-12 NL Psych Exam: Positive: Mood NL Assessment /Plan Assessment # Nausea and Vomiting # Drug rash - suspect likely to zyvox + flagyl, these have been discontinued - switched to po doxy 100 mg bid, he's tolerating this w/o adverse reactions - home today with home health and wound care # Early left foot osteomyelitis - (+)ve cx growing coag (-) staph, Rothia dentocaricosa and prevotella - repeat foot xray shows no bony destruction only some air bubbles - Doxy 100 mg bid until 10/18/2019 - f/u with podiatry in 1 week, ID in 2 weeks # IDDM2 - increase levemir 40 units bid - humalog SS prn - diabetic diet - agrees to FSBG minimum of 2-3x daily and will keep log - Has outpatient f/u with endocrinology already scheduled Plan/VTE VTE Prophylaxis Ordered?: Yes (Heparin sq bid) VTE Exclusion Mechanical Proph: N/A:VTE Prophy Ordered VTE Exclusion Pharmacological: N/A:VTE Prophy Ordered VS, I&O, 24H, Fishbone Vital Signs/I&O Vital Signs Date Time Temp Pulse Resp B/P (MAP) Pulse Ox O2 Delivery O2 Flow Rate FiO2 1/31/20 06:00 96.1 55 20 134/66 (88) 97 Room Air I&O- Last 24 Hours up to 6 AM 09/23/19 06:00 Intake Total 1770 ml Output Total 0 ml Balance 1770 ml Laboratory Data 24H LABS Laboratory Tests 2 09/22/19 11:38: Bedside Glucose (Misc Panel) 237H 09/22/19 17:26: Bedside Glucose (Misc Panel) 230H 09/22/19 20:17: Bedside Glucose (Misc Panel) 299H 09/23/19 06:42: Immature Granulocyte % (Auto) 1.5, Neutrophils (%) (Auto) 47.9, Lymphocytes (%) (Auto) 35.5, Monocytes (%) (Auto) 11.3H, Eosinophils (%) (Auto) 3.4H, Basophils (%) (Auto) 0.4, Neutrophils # (Auto) 2.2, Lymphocytes # (Auto) 1.7, Monocytes # (Auto) 0.5, Eosinophils # (Auto) 0.2, Basophils # (Auto) 0.0, Nucleated Red Blood Cells % (auto) 0.0, Anion Gap 5L, Glomerular Filtration Rate > 60.0, Calcium Level 8.9 CBC/BMP Laboratory Tests 09/23/19 06:42 Microbiology Microbiology 09/16/19 Gram Stain - Final, Complete 09/16/19 Wound Culture - Final, Complete Rothia Dentocariosa 09/16/19 Blood Culture - Final, Complete NO GROWTH AFTER 5 DAYS 09/14/19 Blood Culture - Final, Complete NO GROWTH AFTER 5 DAYS 09/14/19 Blood Culture - Final, Complete NO GROWTH AFTER 5 DAYS 09/13/19 Gram Stain - Final, Complete 09/13/19 Wound Culture - Final, Complete Staphylococcus Sp Coag Neg 09/13/19 Anaerobic Culture - Final, Complete MANDY MILTON MD Sep 23, 2019 10:05
--- NOTE | 2019-09-23 11:02 | IPNPDOC ---
Date Seen The patient was seen on 09/23/19. Progress Note SUBJECTIVE: Patient is a 34 year old male who states he feels much better than he has the past couple days. Pt's rash has mostly subsided and is no longer erythematous. Pt denies fever, nausea, vomiting, chest pain, shortness of breath, diarrhea, constipation, and hematuria. OBJECTIVE PHYSICAL EXAMINATION: VITAL SIGNS: Please see below. General: Alert, non-distressed, unkempt, AAOx3 Cardiovascular: Normal rate, normal rhythm, no murmurs, no rubs, no gallops. Pulmonary: Clear to auscultation b/l, no wheezing, no rales, no rhonchi GI: Soft, nontender, nondistended, no tenderness noted in al four quadrants Skin: He has multiple scabs hyperpigmented that are for the most part healed. Left foot has an incision in the mid foot and along the second metatarsal with clean granulation tissue. There is no purulent discharge and another incision on the dorsal aspect of the foot measuring 3 cm also without purulence. Maculopapular rash has subsided. Petechiae of his legs has subsided. LABORATORY DATA, IMAGING STUDIES, MICROBIOLOGY: Please see below. ASSESSMENT: Patient is a 34 year old diabetic male with complicated skin and soft tissue infection of the left foot with early osteomyelitis of the second metatarsal:who has undergone three debridements. Meropenem drug related fever T=105 and rash, developed GI issues with PO zyvox and flagyl with diarrhea and vomiting, started doxycycline yesterday and rash and fever have subsided PLAN: 1. Continue PO Doxycycline for total 4 weeks for Right foot osteo involving 2nd toe and met, he will be discharged home today 2. Patient requires six weeks of antibiotics for suspicion of osteomyelitis- this is week two with end of therapy set for October 18 2019. 3- I would recommend PH referral for dressing changes and glucose management DISPOSITION: Pt has had complicated hospital course and is now clinically stable. Foot x-ray has shown that it is unlikely the pt has an abscess in his right foot. Drug rash has resolved. Continue PO Doxycycline 100 mg BID for at least two weeks with earliest end date of October 04. Follow up with Podiatry in a week and with Infectious Disease within two weeks. Patient was seen and discussed with Dr Lisa Barr, infectious disease preceptor. GME ATTESTATION My faculty preceptor for this patient encounter was physically present during t he encounter and was fully available. All aspects of the patient interview, examination, medical decision making process, and medical care plan development were reviewed and approved by the faculty preceptor. The faculty preceptor is aware and concurs with the plan as stated in the body of this note and will attest to such by his/her cosignature. VS, I&O, 24H, Fishbone Vital Signs/I&O Vital Signs Date Time Temp Pulse Resp B/P (MAP) Pulse Ox O2 Delivery O2 Flow Rate FiO2 09/23/19 06:00 96.1 55 20 134/66 (88) 97 Room Air I&O- Last 24 Hours up to 6 AM 09/23/19 06:00 Intake Total 1770 ml Output Total 0 ml Balance 1770 ml Laboratory Data 24H LABS Laboratory Tests 2 09/22/19 11:38: Bedside Glucose (Misc Panel) 237H 09/22/19 17:26: Bedside Glucose (Misc Panel) 230H 09/22/19 20:17: Bedside Glucose (Misc Panel) 299H 09/23/19 06:42: Immature Granulocyte % (Auto) 1.5, Neutrophils (%) (Auto) 47.9, Lymphocytes (%) (Auto) 35.5, Monocytes (%) (Auto) 11.3H, Eosinophils (%) (Auto) 3.4H, Basophils (%) (Auto) 0.4, Neutrophils # (Auto) 2.2, Lymphocytes # (Auto) 1.7, Monocytes # (Auto) 0.5, Eosinophils # (Auto) 0.2, Basophils # (Auto) 0.0, Nucleated Red Blood Cells % (auto) 0.0, Anion Gap 5L, Glomerular Filtration Rate > 60.0, Calcium Level 8.9 CBC/BMP Laboratory Tests 09/23/19 06:42 Microbiology Microbiology 09/16/19 Gram Stain - Final, Complete 09/16/19 Wound Culture - Final, Complete Rothia Dentocariosa 09/16/19 Blood Culture - Final, Complete NO GROWTH AFTER 5 DAYS 09/14/19 Blood Culture - Final, Complete NO GROWTH AFTER 5 DAYS 09/14/19 Blood Culture - Final, Complete NO GROWTH AFTER 5 DAYS 09/13/19 Gram Stain - Final, Complete 09/13/19 Wound Culture - Final, Complete Staphylococcus Sp Coag Neg 09/13/19 Anaerobic Culture - Final, Complete MARK MARTINEZ OMS-IV Sep 23, 2019 11:02 Lisa Barr MD Sep 23, 2019 17:32
[2019-09-23] MEDS: PERCOCET 5MG/325MG TAB PO PRN (12:37)
--- NOTE | 2019-09-24 14:02 | DSES ---
DATE OF ADMISSION: 09/06/2019 DATE OF DISCHARGE: 09/23/2019 DISCHARGE DIAGNOSES: 1. Early left foot osteomyelitis secondary to polymicrobial diabetic left foot infection growing coag negative Staphylococcus, rothia dentocariosa, and Prevotella. 2. Left foot diabetic abscess with cellulitis. 3. Poorly controlled diabetes mellitus type 2. 4. Drug-induced fever and rash. 5. Prednisone allergy. 6. Meropenem allergy appearing during this hospitalization. PROCEDURES PERFORMED DURING THIS HOSPITALIZATION: Incision and drainage of his left foot abscess on three separate occasions occurring on 09/06/2019, 09/11/2019 and 09/13/2019. Please reference individual operative reports for details. CONSULTANTS ON THIS CASE: Podiatry service as well as the infectious disease service. DISPOSITION: Patient is discharged home in stable condition with home health for further care. DISCHARGE INSTRUCTIONS: Patient is instructed to follow up with Dr. Barr in the next two weeks. He is to follow up with podiatry clinic in the next one week. He is to take his antibiotics as prescribed until 10/18/2019. He is to be compliant with wound care, as conducted by the wound care clinic, as well as home health wound care. Patient is to agree to maintain logs of his blood glucose readings on a daily basis. He is to follow up with outpatient endocrinology for assistance in controlling his poorly controlled diabetes. IMAGING STUDIES CONDUCTED DURING PATIENT'S HOSPITAL STAY: 1. Foot x-ray times two. Please reference individual reports for details. 2. MRI of his left foot, which showed ulceration of the plantar aspect of the forefoot with excepted soft tissue edema and pockets of fluid as far as the first and second digits, moderate edema within the head of the second metatarsal and the base of the second proximal phalanx, as well as within the distal phalanx and head of the proximal phalanx, consistent with early osteomyelitis. 3. Chest x-ray, which showed no active lung disease. RELEVANT LABORATORIES: Blood cultures drawn on 09/14/2019 and 09/16/2019 showed no growth to organism. Blood cultures drawn on showed no growth to organism. Wound cultures revealed coag negative Staphylococcus as well as Prevotella On admission, the patient had a CRP of 22. Following his lengthy hospitalization, it has trended down to 0.64 on the ultimate day of discharge. Sodium is 137, potassium 3.8, chloride 102, bicarbonate 29, anion gap is 5, BUN is 12, creatinine 0.72, glucose is 218, calcium is 8.9. Hemoglobin A1c is 11.9 on last check in May. White blood cell count is 4.7, hemoglobin is 12, hematocrit 38.5, platelet count of 426. DISCHARGE MEDICATIONS: - Tylenol 1000 mg as needed pain or fever - doxycycline 100 mg twice a day for the next 26 days - Levemir 40 mg subcutaneous twice a day - insulin Lispro sliding scale per home sliding scale HOSPITAL COURSE: Mr. Aguirre is a 34-year-old gentleman with poorly controlled diabetes, who was recently hospitalized at [facility] for treatment of left diabetic foot infection. He was placed on antibiotics; however, his foot continued progressively worse. He subsequently presented to [facility] for further evaluation on 09/06/2019. He was noted to have a left diabetic foot infection with imaging consistent with abscess. The patient was placed on empiric antibiotics consistent of vancomycin and meropenem. He was seen by podiatry, who took him to the operating room (OR) for incision and drainage (I and D). During his hospitalization, he underwent an additional two incision and drainage to control his infection. Dr. Barr, of infectious disease, was consulted during the patient's hospital stay. Clinically, patient did have some improvement; however, he began to spike fevers. Repeat blood cultures were obtained, which did not grow any organisms whatsoever during this hospitalization. Because of the increasing fevers, the patient was transferred to the intensive care unit (ICU) as there was concern that he could be undergoing sepsis. He was watched in the ICU. It was suspected this was likely a drug fever. Patient ultimately developed a drug rash. Both the vancomycin and the meropenem were discontinued. He was transitioned to oral Flagyl and Zyvox based on his culture and sensitivities, as outlined above. However, he developed intractable nausea and vomiting and rash with this and these were discontinued. He was subsequently transitioned to oral doxycycline, which he has done quite well with. From a medical standpoint, patient is stable. His blood sugars have been controlled with escalating doses of Levemir and sliding scale insulin. He has been cleared to discharge home from podiatry as well as infectious disease service standpoint, and has been prescribed doxycycline. A total of 30 minutes was spent in clearing all discharge paperwork. DIOMEDES
== END 2019-09-23 13:09 | disposition home or self-care (01) | DRG 344 ==
LOC: M ED 12:17 → M ED INP 16:15 → ENRESERVDT 18:27 → ENRESERVTM 18:27 → CANRESERV 18:27 → ENRESERVTM 20:27 → ENRESERVDT 20:27 → M MS5PR 21:10 → M MSPAV 09-15 11:23 → M ICU 09-16 04:28 → M MS5PR 09-18 16:50
PROVIDERS: ADMIT Student in an Organized Health Care Education/Training Program; ATTEND Internal Medicine
PROC: 0JBR0ZZ Excision of Left Foot Subcutaneous Tissue and Fascia, Open Approach (ICD-10-PCS; principal; 2019-09-06 19:00)
PROC: 0Y9N0ZZ Drainage of Left Foot, Open Approach (ICD-10-PCS; 2019-09-11)
PROC: 0Y9N0ZZ Drainage of Left Foot, Open Approach (ICD-10-PCS; 2019-09-13)
DX: E11.621 Type 2 diabetes mellitus with foot ulcer (principal); M86.172 Other acute osteomyelitis, left ankle and foot; E87.1 Hypo-osmolality and hyponatremia; L03.116 Cellulitis of left lower limb; E11.69 Type 2 diabetes mellitus with other specified complication; R50.2 Drug induced fever; L97.529 Non-pressure chronic ulcer of other part of left foot with unspecified severity; Z79.4 Long term (current) use of insulin; Z79.899 Other long term (current) drug therapy; F17.200 Nicotine dependence, unspecified, uncomplicated; Z88.0 Allergy status to penicillin; D72.829 Elevated white blood cell count, unspecified; L27.0 Generalized skin eruption due to drugs and medicaments taken internally; M90.80 Osteopathy in diseases classified elsewhere, unspecified site; R19.7 Diarrhea, unspecified

== ENCOUNTER → 2019-11-10 | Outpatient (REF) | payer BC ==
[~2019-11-10] MED LIST: ACET-683 PO; BASA100I SC; CLIN300C5 PO; DOXY100T PO; FARX1TAB3 PO; HUMA100I5 SC; INSU100I9; INSUDET SC; LEVO500T3 PO; METF500T13 PO; VITA500079 PO
[2019-11-10 13:56] LABS: BASO % 0.3 % (0.0-1.0); EOS # 0.1 10^3/uL (0.0-0.5); EOS % 2.2 % (0.0-3.0); HEMATOCRIT 46.2 % (42.0-52.0); HEMOGLOBIN 14.7 g/dl (13.5-17.5); LYMPH # 2.2 10^3/uL (1.5-5.0); LYMPH % 36.7 % (24.0-44.0); MEAN CORPUSCULAR HEMOGLOBIN 27.6 pg (27.0-33.0); MEAN CORPUSCULAR HGB CONC 31.8 g/dl (32.0-36.5); MEAN CORPUSCULAR VOLUME 86.7 fl (80.0-96.0); MONO # 0.4 10^3/uL (0.0-0.8); MONO % 6.9 % (0.0-5.0); NEUTROPHILS # 3.2 10^3/uL (1.5-8.5); NEUTROPHILS % 53.6 % (36.0-66.0); PLATELET COUNT, AUTOMATED 389 10^3/uL (150-450); RED BLOOD COUNT 5.33 10^6/uL (4.30-6.10)
[2019-11-10 14:13] LABS: BLOOD UREA NITROGEN 20 MG/DL (7-18); C REACTIVE PROTEIN QUANTITATIV 0.32 MG/DL (0.00-0.30); CALCIUM LEVEL 9.8 MG/DL (8.5-10.1); CARBON DIOXIDE LEVEL 32 MEQ/L (21-32); CHLORIDE LEVEL 105 MEQ/L (98-107); CREATININE FOR GFR 0.74 MG/DL (0.70-1.30); GLOMERULAR FILTRATION RATE > 60.0 (>60); GLUCOSE, FASTING 87 MG/DL (70-100); POTASSIUM SERUM 4.3 MEQ/L (3.5-5.1); SODIUM LEVEL 139 MEQ/L (136-145)
[2019-11-10 14:15] LABS: ERYTHROCYTE SEDIMENTATION RATE 41 mm/hr (0-15)
== END ==
LOC: M SFHCPLAZ 12:04
PROVIDERS: ATTEND Internal Medicine Infectious Disease
DX: M86.672 Other chronic osteomyelitis, left ankle and foot (principal)

== ENCOUNTER 2019-11-14 09:46 | Inpatient (IN) | payer BC ==
[~2019-11-14] VITALS: Ht 195.6 cm; Wt 117.0 kg
[~2019-11-14 09:46] MED LIST changes: -FARX1TAB3 PO; -METF500T13 PO; -VITA500079 PO
[2019-11-14] MEDS ORDERED: ACETAMINOPHEN TAB 650MG DOSE (2X325MG) PO PRN (13:45)
[2019-11-14] MEDS ORDERED: GLUCOSE 4 GM CHEW TABLET PO PRN (13:45)
[2019-11-14] MEDS ORDERED: MORPHINE 2 MG/ML 1ML VIAL (J2270) IV PRN (13:45)
[2019-11-14] MEDS ORDERED: GLUCAGON FOR INJ 1 MG VIAL (J1610) SC PRN (13:45)
[2019-11-14] MEDS ORDERED: DEXTROSE 50% 50 ML SYRINGE IV PRN (13:45)
[2019-11-14] MEDS ORDERED: LIDOCAINE 2% MDV 20 ML VIAL As Ordered ONE (14:13)
[2019-11-14] MEDS ORDERED: BUPIVACAINE HCL 0.5% 30 ML VIAL As Ordered ONE (14:13)
[2019-11-14] MEDS ORDERED: SILVER SULFADIAZINE 1% CR 50 GM JAR As Ordered ONE (14:17)
[2019-11-14 14:19] LABS: HEMATOCRIT 49.1 % (42.0-52.0); HEMOGLOBIN 15.6 g/dl (13.5-17.5); MEAN CORPUSCULAR HGB CONC 31.8 g/dl (32.0-36.5); MEAN CORPUSCULAR VOLUME 84.9 fl (80.0-96.0); PLATELET COUNT, AUTOMATED 389 10^3/uL (150-450); RED BLOOD COUNT 5.78 10^6/uL (4.30-6.10); WHITE BLOOD COUNT 5.7 10^3/uL (4.0-10.0)
[2019-11-14] MEDS ORDERED: VITA500079 PO (14:19)
[2019-11-14] MEDS ORDERED: FARX1TAB3 PO (14:19)
[2019-11-14] MEDS ORDERED: INSUDET SC (14:19)
[2019-11-14] MEDS ORDERED: METF500T13 PO (14:19)
--- NOTE | 2019-11-14 14:28 | HPEPDOC ---
[facility] Medical History & Physical Date of Admission Nov 14, 2019 Date of Service: Nov 14, 2019 History and Physical CHIEF COMPLAINT: L. diabetic foot infection HISTORY OF PRESENT ILLNESS: Patient is 34 year old male with PMH IDDM type 2 with L. sided diabetic foot infection s/p multiple debridements and course of antibiotics, most recently in august is sent in to [facility] for surgical intervention likely amputation. He has been following with wound care, ID, and podiatry since he was discharged in september. He was on a long course of antibiotics and was re-evaluated by ID/Podiatry and was sent in for surgical intervention. He is comfortable at this time and reports no complaints including any significant discomfort in the foot, fever, chills, nausea, or vomiting. PAST MEDICAL HISTORY: Refer to [facility] PAST SURGICAL HISTORY: Appendectomy L. diabetic foot wound debridements SOCIAL HISTORY: Smokes 1ppd. Rare alcohol consumption, last drink 6 months ago. Also rare marijuana use. FAMILY HISTORY: Father- epilepsy and DM Mother- DM ALLERGIES: Please see below. REVIEW OF SYSTEMS: 10 point review of system negative except as stated in HPI HOME MEDICATIONS: Please see below. PHYSICAL EXAMINATION: General: No acute distress, Alert Eyes: Normal sclera, EOMI HENT: Atraumatic Cardiovascular: Normal rate, normal rhythm. Pulmonary: Clear to auscultation b/l, no wheezing GI: Soft, nontender, nondistended MSK: L. foot with linear opened wound medial and lateral of large toe with significant swelling. No active discharge or blood noted. Dry. Skin: Warm and dry Neuro: CN grossly intact. No focal deficits. Strengths equal b/l. Psych: oriented x 3 LABORATORY DATA: See below. IMAGING: None MICROBIOLOGY: Please see below. ASSESSMENT AND PLAN: 1. L. diabetic foot infection likely chronic osteomyelitis - s/p treatment with Abx and debridements in August of this year. - Has been following with wound care, ID and Podiatry. - Admitted today for likely amputation. - Obtain blood cultures, CRP, ESR. To be evaluated by ID. - No abx initated at this time pending ID eval, has had a long course of Abx. One dose of periop abx per Podiatry. - f/u intraop wound cultures. 2. DM - Resume home dose insulin. - consistent carbohydrate diet. ISS. Monitor BS. DVT ppx: Lovenox initiated post op Code status: Full code Vital Signs Vital Signs Date Time Temp Pulse Resp B/P (MAP) Pulse Ox O2 Delivery O2 Flow Rate FiO2 11/14/19 13:57 97.2 116 18 128/89 (102) 100 Room Air Laboratory Data Labs 24H Laboratory Tests 2 11/14/19 13:57: CBC/BMP Microbiology Microbiology 11/14/19 Blood Culture, Received Pending 11/14/19 Blood Culture, Received Pending Home Medications Scheduled Cholecalciferol (Vitamin D3) (Vitamin D3) 5,000 Unit Tab.rapdis, 5,000 UNIT PO DAILY Dapagliflozin Propanediol (Farxiga) 10 Mg Tablet, 1 TAB PO DAILY Insulin Detemir (Levemir) 100 Unit/1 Ml Vial, 40 UNITS SC QHS Insulin Lispro (Humalog Kwikpen U-100) 100 Unit/1 Ml Insuln.pen, 1 DOSE SC AC PER SLIDING SCALE. Metformin HCl (Metformin HCl) 500 Mg Tablet, 1,000 MG PO BID Scheduled PRN Acetaminophen (Acetaminophen) 500 Mg Tablet, 1,000 MG PO Q6H PRN for PAIN / FEVER Allergies Coded Allergies: Penicillins (Verified Allergy, Intermediate, rash hives, 09/06/19) amoxicillin (Verified Allergy, Intermediate, HIVES, 11/14/19) meropenem (Verified Adverse Reaction, Mild, drug fever, 09/23/19) A-FIB/CHADSVASC A-FIB History Current/History of A-Fib/PAF?: No NIYAH RIVERA MD Nov 14, 2019 14:28
[2019-11-14 14:55] LABS: ALBUMIN 4.2 GM/DL (3.2-5.2); ALT/SGPT 42 U/L (12-78); BILIRUBIN,TOTAL 0.3 MG/DL (0.2-1.0); BLOOD UREA NITROGEN 22 MG/DL (7-18); C REACTIVE PROTEIN QUANTITATIV < 0.30 MG/DL (0.00-0.30); CALCIUM LEVEL 9.9 MG/DL (8.5-10.1); CARBON DIOXIDE LEVEL 29 MEQ/L (21-32); CHLORIDE LEVEL 106 MEQ/L (98-107); CREATININE FOR GFR 0.81 MG/DL (0.70-1.30); GLOMERULAR FILTRATION RATE > 60.0 (>60); GLUCOSE, FASTING 169 MG/DL (70-100); POTASSIUM SERUM 4.6 MEQ/L (3.5-5.1); SODIUM LEVEL 138 MEQ/L (136-145); TOTAL PROTEIN 8.6 GM/DL (6.4-8.2)
[2019-11-14 15:10] LABS: ERYTHROCYTE SEDIMENTATION RATE 6 mm/hr (0-15)
[2019-11-14] MEDS ORDERED: LIDOCAINE 2% INJ 100 MG/5 ML SYRINGE As Ordered ONE (15:57)
[2019-11-14] MEDS ORDERED: propofoL 200 MG/20 ML VIAL As Ordered ONE ×3 (15:57→16:36)
[2019-11-14] MEDS ORDERED: MIDAZOLAM INJ 2 MG/2 ML VIAL (J2250) As Ordered ONE (15:58)
[2019-11-14] MEDS ORDERED: fentaNYL 100 MCG/2 ML INJECTION (J3010) As Ordered ONE (15:58)
[2019-11-14] MEDS ORDERED: LIDOCAINE 2% INJ 100 MG/5 ML SDV (FOR ANES.) As Ordered ONE (15:59)
[2019-11-14] MEDS ORDERED: GENTAMICIN SULF INJ 80MG/2ML VIAL (J1580) As Ordered ONE (16:18)
[2019-11-14] MEDS ORDERED: HYDROMORPHONE HCL 0.5 MG/ 0.5 ML SYRINGE (J1170 PER 1) IV PRN (17:45)
[2019-11-14] MEDS ORDERED: ONDANSETRON 4MG/2ML VIAL (J2405) IV PRN (17:45)
[2019-11-14] MEDS ORDERED: LR 1,000 ML IV SCH (17:45)
[2019-11-14] MEDS ORDERED: oxyCODONE 5MG TAB PO PRN (17:45)
[2019-11-14] MEDS ORDERED: fentaNYL 100 MCG/2 ML INJECTION (J3010) IV PRN (17:45)
[2019-11-14 18:00] VITALS: BP 128/96
[2019-11-14] MEDS ORDERED: MOXIFLOXACIN HCL 400 MG in IV 1 EA IV SCH (18:00)
--- NOTE | 2019-11-14 18:00 | REP ---
Clinical: Postoperative baseline examination. Technique: Portable AP, lateral, oblique views of the left foot. Findings: The patient is status post amputation at the level of the first metatarsophalangeal joint. Very small residual bony fragments in the surgical bed are identified. Overlying postsurgical changes appreciated. The remainder of the osseous structures appear intact and relatively normal. Impression: Status post amputation. Electronically Signed by Mitul Demarco MD 11/14/2019 05:52 P
[2019-11-14] MEDS: HumaLOG INSULIN (NovoLOG) PER UNIT SC SCH ×2 (18:45→21:00)
[2019-11-14] MEDS: LEVEMIR (INSULIN DETEMIR) 1 UNITS/0.01ML SC SCH (21:03)
[2019-11-14 22:00] VITALS: BP 141/93
[2019-11-15] MEDS: MORPHINE 2 MG/ML 1ML VIAL (J2270) IV PRN ×2 (02:03→23:16)
[2019-11-15] MEDS ORDERED: ENOXAPARIN 40 MG/0.4 ML SYRINGE (J1650) SC SCH ×2 (05:00→09:00)
[2019-11-15 05:21] LABS: HEMATOCRIT 43.6 % (42.0-52.0); HEMOGLOBIN 14.2 g/dl (13.5-17.5); MEAN CORPUSCULAR HEMOGLOBIN 27.4 pg (27.0-33.0); MEAN CORPUSCULAR HGB CONC 32.6 g/dl (32.0-36.5); MEAN CORPUSCULAR VOLUME 84.2 fl (80.0-96.0); PLATELET COUNT, AUTOMATED 322 10^3/uL (150-450); RED BLOOD COUNT 5.18 10^6/uL (4.30-6.10); WHITE BLOOD COUNT 7.2 10^3/uL (4.0-10.0)
[2019-11-15] MEDS: ENOXAPARIN 40 MG/0.4 ML SYRINGE (J1650) SC SCH (05:34)
[2019-11-15 05:47] LABS: ALBUMIN 3.5 GM/DL (3.2-5.2); ALT/SGPT 30 U/L (12-78); BILIRUBIN,TOTAL 0.3 MG/DL (0.2-1.0); BLOOD UREA NITROGEN 17 MG/DL (7-18); CALCIUM LEVEL 9.4 MG/DL (8.5-10.1); CARBON DIOXIDE LEVEL 28 MEQ/L (21-32); CHLORIDE LEVEL 106 MEQ/L (98-107); CREATININE FOR GFR 0.75 MG/DL (0.70-1.30); GLOMERULAR FILTRATION RATE > 60.0 (>60); GLUCOSE, FASTING 85 MG/DL (70-100); POTASSIUM SERUM 3.8 MEQ/L (3.5-5.1); SODIUM LEVEL 138 MEQ/L (136-145); TOTAL PROTEIN 7.5 GM/DL (6.4-8.2)
[2019-11-15 06:00] VITALS: BP 118/82
[2019-11-15] MEDS: HumaLOG INSULIN (NovoLOG) PER UNIT SC SCH ×4 (07:30→21:00)
--- NOTE | 2019-11-15 08:23 | RO ---
DATE OF PROCEDURE: 11/14/2019 PREPROCEDURE DIAGNOSIS: Osteomyelitis left hallux. POSTPROCEDURE DIAGNOSIS: Osteomyelitis left hallux. PROCEDURE: Hallux amputation left foot SURGEON: Gus Contreras DPM QUILL FIXER: None. ANESTHESIA: Local MAC IRRIGATION: Dilute gentamicin solution. ESTIMATED BLOOD LOSS: 25 mL. DRAINS UTILIZED: 1/4 inch Iodoform gauze. HEMOSTASIS: Ankle pneumatic tourniquet at 250 mmHg for 10 minutes. DESCRIPTION OF PROCEDURE: On 11/14/2019, this 34year-old male was taken from his hospital room to the operating room and placed on the operating room table in supine position. Following the induction of IV sedation, local and regional anesthesia, the left lower extremity was prepped and draped in the usual aseptic manner. Ankle pneumatic tourniquet was rapidly inflated and the left lower extremity was returned to the operating room table and the following procedure was performed. HALLUX AMPUTATION LEFT FOOT: Attention was directed to the patient's left foot where a fishmouth type incision was placed on the dorsal surface of the left hallux starting at an ulceration present on the medial aspect and extending just proximal to the interphalangeal joint. Dissection was carried straight to bone. The bone was then dissected just superior to the periosteum and was disarticulated at the hallux. All bleeders as encountered were electrocoagulated. Then, the tourniquet was deflated and the wound was flushed with 3 liters of dilute gentamicin with a low pressure pulse lavage system. Any remaining bleeders as encountered were electrooagulated. 1/4 inch Iodoform gauze was then placed through the wound and the wound was closed with #2-0 and #3-0 nylon in a simple interrupted fashion. Sterile dressing was applied consisting of Adaptic, 4x4s, 4x4 splints, and Kerlix. The patient having apparently tolerated the surgical procedure well was taken from the operating room (OR) to the recovery room for further monitoring by the anesthesia department. The interphalangeal joint bone was debrided and sent to pathology for aerobic and anaerobic cultures. The patient was placed on vancomycin which covered his previous infection. The patient was on oral minocycline which also covered his infection, however, he was getting a relative poor response with oral therapy in the last few days, therefore, his antibiotics will be tailored according to his present bone culture. DIOMEDES
[2019-11-15 14:00] VITALS: BP 121/82
--- NOTE | 2019-11-15 18:53 | CR ---
DATE OF CONSULTATION: 11/15/2019 CONSULTATION REPORT FOR: Dr. Contreras and Dr. Padilla REASON FOR CONSULTATION: Chronic osteomyelitis of the left foot. HISTORY OF PRESENT ILLNESS: Sukumar is a pleasant 34-year-old gentleman who is well-known to me from previous admission. He has a history of poorly controlled insulin-dependent diabetes with acute osteomyelitis of the left foot involving the toe and a deep tissue abscess. He was hospitalized 09/06/2019 through 09/23/2019 for two weeks and had multiple incision and drainages done by Dr. Contreras and Dr. Cameron. Cultures from those admissions were positive for Staphylococcus epidermidis and Prevotella bivia. The patient was discharged on a 28-day course of doxycycline to finish two weeks of treatment for osteomyelitis. He had finished the antibiotic around 10/21/2019. The patient follows up at the wound clinic with HEENA Rhoades who was doing his wound care. I saw him last week in the office and his left toe was very swollen. He was seen by Dr. Contreras who recommended amputation of the toe due to destruction from chronic osteomyelitis. The patient was admitted for amputation of the first toe. He was seen postoperatively and doing well. His inflammation markers were normal. His white count was 7.2, sedimentation rate was 6, and C-reactive protein (CRP) less than 0.3. Intraoperatively, Dr. Contreras was concerned that the bone was very soft at the first metatarsal that he had osteomyelitis. His past medical history is significant for: 1. Poorly controlled insulin-dependent diabetes. He now follows up with Dr. Tolliver. 2. Diabetic foot infection with abscess status post incision and drainage and multiple debridement and acute osteomyelitis. 3. Skin rash with multiple hyperpigmented lesions of his legs related to chronic itching. 4. Tobacco abuse. SOCIAL HISTORY: He lives with his girlfriend. He smokes a pack a day. Rare alcohol consumption. He last had a drink six months ago. He also uses marijuana. FAMILY HISTORY: Father has seizures and diabetes. Mother with diabetes. ALLERGIES: PENICILLINS and MEROPENEM. He had fevers up to 105 during his previous hospitalization. PHYSICAL EXAMINATION: He is a healthy-looking gentleman in no acute distress. Temperature is 99.2, pulse 94, respirations 18, blood pressure 121/82, oxygen saturation 92% on room air. HEART: Normal S1, S2. No murmurs, rubs or gallops. Lungs are clear. No wheezes, rales, or rhonchi. ABDOMEN: Soft, nontender. No hepatosplenomegaly. EXTREMITIES: No clubbing, cyanosis or edema. Left foot, amputation of the first toe. The foot is swollen and mildly tender to touch but there is no purulent drainage. Second toe is slightly swollen. NEUROLOGIC: Examination normal. SKIN: Multiple hyperpigmented lesions from healed scars. IMPRESSION: Chronic osteomyelitis of the left big toe, status post amputation. Pathology is pending. Cultures are pending. MEDICATIONS: He is currently on moxifloxacin 400 mg by mouth daily to cover for anaerobes and Streptococcus. The patient had finished a four-week course of doxycycline and his last dose of antibiotic was 10/21/2019. The current cultures from the operating room (OR) are off antibiotics. PLAN: Continue with moxifloxacin 400 mg daily. If the patient is ready for discharge tomorrow, he could go home on moxifloxacin for 14 days. He will followup in my office in 7-10 days. The case has been discussed with Dr. Contreras.
--- NOTE | 2019-11-15 18:57 | IPNPDOC ---
Date Seen The patient was seen on 11/15/19. Progress Note SUBJECTIVE: 34-year-old male with uncontrolled diabetes mellitus and chronic foot wound who was admitted for amputation of right great toe secondary to chronic osteomyelitis. He underwent toe amputation yesterday, seen in the morning, comfortable in bed, without any complaints, pain is well controlled. He denies any shortness of breath, chest pain, nausea, vomiting, abdominal pain or diarrhea. 10 point review of system is negative except for above PHYSICAL EXAMINATION: VITAL SIGNS: Please see below. GENERAL: No distress HEENT: Normocephalic, atraumatic, moist mucous membranes NECK: Supple CARDIOVASCULAR EXAMINATION: S1, S2, no murmurs RESPIRATORY EXAMINATION: Clear to auscultation, no wheezing ABDOMINAL EXAMINATION: Soft, nontender, nondistended, positive bowel sounds EXTREMITIES: Right foot dressing in place SKIN: No rash NEUROLOGICAL EXAMINATION: Alert and oriented 3, no focal deficits PSYCHIATRIC EXAMINATION: Calm and cooperative LABORATORY DATA, IMAGING STUDIES, MICROBIOLOGY: Please see below. ASSESSMENT AND PLAN: 34-year-old male with uncontrolled diabetes mellitus and chronic foot wound is admitted for right great toe amputation. PROBLEMS: 1. Right foot wound/osteomyelitis: Status post right great toe amputation, Intra-Op and blood cultures pending, pain control, on moxifloxacin, podiatry and infectious disease following. 2. Diabetes mellitus: Continue Levemir and sliding scale insulin coverage with meals and at bedtime. DVT prophylaxis: Lovenox. GI prophylaxis: Not needed VS, I&O, 24H, Fishbone Vital Signs/I&O Vital Signs Date Time Temp Pulse Resp B/P (MAP) Pulse Ox O2 Delivery O2 Flow Rate FiO2 11/15/19 14:00 99.2 94 18 121/82 (95) 92 11/15/19 06:00 Room Air I&O- Last 24 Hours up to 6 AM 11/15/19 05:59 Intake Total 1480 ml Output Total 2150 ml Balance -670 ml Laboratory Data 24H LABS Laboratory Tests 2 11/14/19 20:20: Bedside Glucose (Misc Panel) 147H 11/15/19 04:59: Nucleated Red Blood Cells % (auto) 0.0, Anion Gap 4L, Glomerular Filtration Rate > 60.0, Calcium Level 9.4, Total Bilirubin 0.3, Aspartate Amino Transf (AST/SGOT) 17, Alanine Aminotransferase (ALT/SGPT) 30, Alkaline Phosphatase 84, Total Protein 7.5, Albumin 3.5, Albumin/Globulin Ratio 0.88L 11/15/19 11:30: Bedside Glucose (Misc Panel) 188H 11/15/19 16:49: Bedside Glucose (Misc Panel) 304H CBC/BMP Laboratory Tests 11/15/19 04:59 Microbiology Microbiology 11/14/19 Blood Culture - Preliminary, Resulted No growth after 24 hours . All specim... 11/14/19 Blood Culture - Preliminary, Resulted No growth after 24 hours . All specim... 11/14/19 Gram Stain - Final, Resulted 11/14/19 Wound Culture, Resulted Pending 11/14/19 Anaerobic Culture, Resulted Pending KIMMIE MARTINI MD Nov 15, 2019 18:57
--- NOTE | 2019-11-15 20:29 | IPN ---
DATE: 11/15/2019 CHIEF COMPLAINT: Patient seen for evaluation status post left hallux amputation. PHYSICAL EXAMINATION: The wound is well coapted and maintained. There is an Iodoform gauze drain in place. This was removed. There is no discharge. The wound culture is pending. Laboratory studies were reviewed, revealing a white count of 7.2, erythrocyte sedimentation rate of 6, C-reactive protein less than 0.3. ASSESSMENT: Healing well status post left hallux amputation. PLAN: Drain was pulled and a dry sterile dressing was applied. Antibiotics are being covered by infectious disease. Patient's antibiotics can be tailored according to his bone culture.
[2019-11-15] MEDS ORDERED: MOXIFLOXACIN 400 MG TAB PO SCH (21:00)
[2019-11-15] MEDS: LEVEMIR (INSULIN DETEMIR) 1 UNITS/0.01ML SC SCH (21:27)
[2019-11-15 22:00] VITALS: BP 128/84
[2019-11-16 05:49] LABS: HEMATOCRIT 43.8 % (42.0-52.0); HEMOGLOBIN 14.2 g/dl (13.5-17.5); MEAN CORPUSCULAR HEMOGLOBIN 27.5 pg (27.0-33.0); MEAN CORPUSCULAR HGB CONC 32.4 g/dl (32.0-36.5); MEAN CORPUSCULAR VOLUME 84.9 fl (80.0-96.0); PLATELET COUNT, AUTOMATED 299 10^3/uL (150-450); RED BLOOD COUNT 5.16 10^6/uL (4.30-6.10); WHITE BLOOD COUNT 5.3 10^3/uL (4.0-10.0)
[2019-11-16] MEDS: ENOXAPARIN 40 MG/0.4 ML SYRINGE (J1650) SC SCH (05:57)
[2019-11-16 06:00] VITALS: BP 124/83
[2019-11-16 06:12] LABS: ALBUMIN 3.2 GM/DL (3.2-5.2); ALT/SGPT 34 U/L (12-78); BILIRUBIN,TOTAL 0.3 MG/DL (0.2-1.0); BLOOD UREA NITROGEN 16 MG/DL (7-18); CARBON DIOXIDE LEVEL 26 MEQ/L (21-32); CHLORIDE LEVEL 108 MEQ/L (98-107); CREATININE FOR GFR 0.72 MG/DL (0.70-1.30); GLOMERULAR FILTRATION RATE > 60.0 (>60); GLUCOSE, FASTING 138 MG/DL (70-100); POTASSIUM SERUM 4.1 MEQ/L (3.5-5.1); SODIUM LEVEL 138 MEQ/L (136-145); TOTAL PROTEIN 7.4 GM/DL (6.4-8.2)
[2019-11-16] MEDS: HumaLOG INSULIN (NovoLOG) PER UNIT SC SCH ×4 (07:30→21:53)
[2019-11-16 14:00] VITALS: BP_SYST 152; BP_SYST 160; BP_DIAS 100; BP_DIAS 116
[2019-11-16 14:41] VITALS: BP 142/82
[2019-11-16] MEDS: AZTREONAM 1 GM in D5W MINI-BAG PLUS 50 ML IV SCH (16:24)
--- NOTE | 2019-11-16 19:42 | IPNPDOC ---
Date Seen The patient was seen on 11/16/19. Progress Note SUBJECTIVE: 34-year-old male with uncontrolled diabetes mellitus and chronic foot wound who was admitted for amputation of right great toe secondary to chronic osteomyelitis. He underwent toe amputation yesterday, seen in the morning, comfortable in bed, without any complaints, pain is well controlled. He denies any shortness of breath, chest pain, nausea, vomiting, abdominal pain or diarrhea. 11/16/19 No acute events overnight, comfortable in bed, without complaints, wishes to go home as soon as possible. 10 point review of system is negative except for above PHYSICAL EXAMINATION: VITAL SIGNS: Please see below. GENERAL: No distress HEENT: Normocephalic, atraumatic, moist mucous membranes NECK: Supple CARDIOVASCULAR EXAMINATION: S1, S2, no murmurs RESPIRATORY EXAMINATION: Clear to auscultation, no wheezing ABDOMINAL EXAMINATION: Soft, nontender, nondistended, positive bowel sounds EXTREMITIES: Left foot dressing in place SKIN: No rash NEUROLOGICAL EXAMINATION: Alert and oriented 3, no focal deficits PSYCHIATRIC EXAMINATION: Calm and cooperative LABORATORY DATA, IMAGING STUDIES, MICROBIOLOGY: Please see below. ASSESSMENT AND PLAN: 34-year-old male with uncontrolled diabetes mellitus and chronic foot wound is admitted for right great toe amputation. PROBLEMS: 1. Right foot wound/osteomyelitis: Status post right great toe amputation, Intra-Op cultures growing Pseudomonas & Raoultella Ornithinolytica, moxifloxacin switched to Aztreonam, pain control, podiatry and infectious disease following. 2. Diabetes mellitus: Continue Levemir and sliding scale insulin coverage with meals and at bedtime. DVT prophylaxis: Lovenox. GI prophylaxis: Not needed VS, I&O, 24H, Fishbone Vital Signs/I&O Vital Signs Date Time Temp Pulse Resp B/P (MAP) Pulse Ox O2 Delivery O2 Flow Rate FiO2 11/16/19 14:41 142/82 (102) 11/16/19 14:00 99.0 112 20 98 Room Air I&O- Last 24 Hours up to 6 AM 11/16/19 06:00 Intake Total 2110 ml Output Total 1100 ml Balance 1010 ml Laboratory Data 24H LABS Laboratory Tests 2 11/15/19 21:14: Bedside Glucose (Misc Panel) 250H 11/16/19 05:22: Nucleated Red Blood Cells % (auto) 0.0, Anion Gap 4L, Glomerular Filtration Rate > 60.0, Calcium Level 9.0, Total Bilirubin 0.3, Aspartate Amino Transf (AST/SGOT) 12, Alanine Aminotransferase (ALT/SGPT) 34, Alkaline Phosphatase 93, Total Protein 7.4, Albumin 3.2, Albumin/Globulin Ratio 0.76L 11/16/19 11:52: Bedside Glucose (Misc Panel) 185H 11/16/19 16:21: Bedside Glucose (Misc Panel) 276H CBC/BMP Laboratory Tests 11/16/19 05:22 Microbiology Microbiology 11/14/19 Blood Culture - Preliminary, Resulted No Growth after 48 hours. All Specime... 11/14/19 Blood Culture - Preliminary, Resulted No Growth after 48 hours. All Specime... 11/14/19 Gram Stain - Final, Resulted 11/14/19 Wound Culture - Final, Resulted Raoultella Ornithinolytica Pseudomonas Aeruginosa 11/14/19 Anaerobic Culture, Resulted Pending KIMMIE MARTINI MD Nov 16, 2019 19:42
[2019-11-16] MEDS: LEVEMIR (INSULIN DETEMIR) 1 UNITS/0.01ML SC SCH (21:53)
[2019-11-16 23:07] VITALS: BP 150/98
[2019-11-17] MEDS: AZTREONAM 1 GM in D5W MINI-BAG PLUS 50 ML IV SCH ×3 (00:55→15:57)
[2019-11-17] MEDS: MORPHINE 2 MG/ML 1ML VIAL (J2270) IV PRN ×2 (02:35→20:40)
[2019-11-17] MEDS: ENOXAPARIN 40 MG/0.4 ML SYRINGE (J1650) SC SCH (04:40)
[2019-11-17 07:00] VITALS: BP 108/74
[2019-11-17 07:23] LABS: HEMATOCRIT 42.7 % (42.0-52.0); HEMOGLOBIN 13.9 g/dl (13.5-17.5); MEAN CORPUSCULAR HEMOGLOBIN 27.4 pg (27.0-33.0); MEAN CORPUSCULAR HGB CONC 32.6 g/dl (32.0-36.5); MEAN CORPUSCULAR VOLUME 84.1 fl (80.0-96.0); PLATELET COUNT, AUTOMATED 302 10^3/uL (150-450); RED BLOOD COUNT 5.08 10^6/uL (4.30-6.10); WHITE BLOOD COUNT 5.4 10^3/uL (4.0-10.0)
[2019-11-17 07:57] LABS: ALBUMIN 3.4 GM/DL (3.2-5.2); ALT/SGPT 33 U/L (12-78); BILIRUBIN,TOTAL 0.4 MG/DL (0.2-1.0); BLOOD UREA NITROGEN 16 MG/DL (7-18); CALCIUM LEVEL 9.3 MG/DL (8.5-10.1); CARBON DIOXIDE LEVEL 27 MEQ/L (21-32); CHLORIDE LEVEL 105 MEQ/L (98-107); GLOMERULAR FILTRATION RATE > 60.0 (>60); GLUCOSE, FASTING 142 MG/DL (70-100); POTASSIUM SERUM 3.9 MEQ/L (3.5-5.1); SODIUM LEVEL 139 MEQ/L (136-145); TOTAL PROTEIN 7.7 GM/DL (6.4-8.2)
[2019-11-17] MEDS: HumaLOG INSULIN (NovoLOG) PER UNIT SC SCH ×4 (08:36→20:39)
[2019-11-17 14:00] VITALS: BP 129/76
--- NOTE | 2019-11-17 18:05 | IPNPDOC ---
Date Seen The patient was seen on 11/17/19. Progress Note SUBJECTIVE: 34-year-old male with uncontrolled diabetes mellitus and chronic foot wound who was admitted for amputation of right great toe secondary to chronic osteomyelitis. He underwent toe amputation yesterday, seen in the morning, comfortable in bed, without any complaints, pain is well controlled. He denies any shortness of breath, chest pain, nausea, vomiting, abdominal pain or diarrhea. 11/16/19 No acute events overnight, comfortable in bed, without complaints, wishes to go home as soon as possible. 11/17/19 No acute events overnight, comfortable in bed, eager to go home, patient will require further IV antibiotics and compliance is an issue, attempting to arrange outpatient infusion. 10 point review of system is negative except for above PHYSICAL EXAMINATION: VITAL SIGNS: Please see below. GENERAL: No distress HEENT: Normocephalic, atraumatic, moist mucous membranes NECK: Supple CARDIOVASCULAR EXAMINATION: S1, S2, no murmurs RESPIRATORY EXAMINATION: Clear to auscultation, no wheezing ABDOMINAL EXAMINATION: Soft, nontender, nondistended, positive bowel sounds EXTREMITIES: Left foot dressing in place SKIN: No rash NEUROLOGICAL EXAMINATION: Alert and oriented 3, no focal deficits PSYCHIATRIC EXAMINATION: Calm and cooperative LABORATORY DATA, IMAGING STUDIES, MICROBIOLOGY: Please see below. ASSESSMENT AND PLAN: 34-year-old male with uncontrolled diabetes mellitus and chronic foot wound is admitted for right great toe amputation. PROBLEMS: 1. Right foot wound/osteomyelitis: Status post left great toe amputation, Intra- Op cultures growing Pseudomonas & Raoultella Ornithinolytica, continue Aztreonam, pain control, will require 7-10 days of IV antibiotics, arrangements are being made for outpatient infusion, podiatry and infectious disease following. 2. Diabetes mellitus: Continue Levemir and sliding scale insulin coverage with meals and at bedtime. DVT prophylaxis: SCDs GI prophylaxis: Not needed VS, I&O, 24H, Fishbone Vital Signs/I&O Vital Signs Date Time Temp Pulse Resp B/P (MAP) Pulse Ox O2 Delivery O2 Flow Rate FiO2 11/17/19 14:13 18 11/17/19 14:00 99.7 130 129/76 (93) 96 Room Air I&O- Last 24 Hours up to 6 AM 11/17/19 06:00 Intake Total 1870 ml Output Total 500 ml Balance 1370 ml Laboratory Data 24H LABS Laboratory Tests 2 11/16/19 21:42: Bedside Glucose (Misc Panel) 308H 11/17/19 06:55: Nucleated Red Blood Cells % (auto) 0.0, Anion Gap 7L, Glomerular Filtration Rate > 60.0, Calcium Level 9.3, Total Bilirubin 0.4, Aspartate Amino Transf (AST/SGOT) 16, Alanine Aminotransferase (ALT/SGPT) 33, Alkaline Phosphatase 91, Total Protein 7.7, Albumin 3.4, Albumin/Globulin Ratio 0.79L 11/17/19 11:23: Bedside Glucose (Misc Panel) 224H 11/17/19 16:45: Bedside Glucose (Misc Panel) 258H CBC/BMP Laboratory Tests 11/17/19 06:55 Microbiology Microbiology 11/14/19 Blood Culture - Preliminary, Resulted No Growth after 72 hours. All specime... 11/14/19 Blood Culture - Preliminary, Resulted No Growth after 72 hours. All specime... 11/14/19 Gram Stain - Final, Complete 11/14/19 Wound Culture - Final, Complete Raoultella Ornithinolytica Pseudomonas Aeruginosa 11/14/19 Anaerobic Culture - Final, Complete KIMMIE MARTINI MD Nov 17, 2019 18:05
[2019-11-17 20:14] VITALS: BP 154/99
[2019-11-17 20:20] VITALS: BP 138/98
[2019-11-17] MEDS: LEVEMIR (INSULIN DETEMIR) 1 UNITS/0.01ML SC SCH (20:39)
--- NOTE | 2019-11-17 21:50 | IPN ---
DATE: 11/17/2019 Sukumar is anxious to go home. He has been walking all around the floor because he wants to be home and he is bored, so his right foot has been bleeding significantly. He had a temperature of 99.7 this afternoon. No nausea, vomiting or diarrhea. Pulse 130, respirations 18, blood pressure 129/76, oxygen saturation 96% on room air. Heart: Normal S1, S2. No murmurs, rubs or gallops. Lungs are clear. No wheezes, rales, or rhonchi. Abdomen is soft, nontender. No hepatosplenomegaly. Extremities: No edema. Right foot first toe amputation with some dehiscence of the suture with significant bleeding on the dressing. There is some swelling overlying the first metatarsal but no significant tenderness. Drainage is mostly serosanguineous. LABORATORY DATA: White count 5.4, hemoglobin 13.9, hematocrit 42.7, platelets 302. Sodium 139, potassium 3.9, chloride 105, bicarbonate 27, BUN 16, creatinine 0.7, glucose 142, calcium 9.3, AST 16, ALT 33, alkaline phosphatase 91, total protein 7.7, albumin 3.4. Wound culture was positive for Raoultella and Pseudomonas aeruginosa. Anaerobic culture is negative. The patient was switched from moxifloxacin to IV aztreonam. I do not have the susceptibility for Pseudomonas straight strain and I will call microbiology to review that. IMPRESSION: 1. Diabetic foot infection with osteomyelitis of the big toe status post amputation. Cultures are positive for Raoultella and Pseudomonas, currently on IV aztreonam day number two. The patient will need five days of IV antibiotic post surgery to cover for skin and soft tissue infection. The only ideal option would be either aztreonam or possibly cefepime. With his carbapenem allergy, I would avoid that. We could also probably do once a day tobramycin at [facility]. I will discuss that with bilingual social worker to see if that would be an option for the next five days. 2. Diabetes, insulin-dependent with glucose ranges between 185 and 308. PLAN: Consider discontinuing Lovenox. The patient is ambulating and bleeding significantly from his foot. Continue IV aztreonam. Further decision to discharge him on possibly IV tobramycin for five days through [facility] will be made tomorrow versus using high-dose levofloxacin or ciprofloxacin even though the susceptibility is intermediate and followup in a week. The patient also needs to limit ambulation to decrease the bleeding. MTDD
[2019-11-18] MEDS: AZTREONAM 1 GM in D5W MINI-BAG PLUS 50 ML IV SCH ×2 (01:09→08:40)
[2019-11-18] MEDS: MORPHINE 2 MG/ML 1ML VIAL (J2270) IV PRN (03:31)
[2019-11-18 06:00] VITALS: BP 107/67
[2019-11-18 07:27] LABS: HEMATOCRIT 43.4 % (42.0-52.0); MEAN CORPUSCULAR HEMOGLOBIN 27.1 pg (27.0-33.0); MEAN CORPUSCULAR HGB CONC 32.3 g/dl (32.0-36.5); MEAN CORPUSCULAR VOLUME 83.9 fl (80.0-96.0); PLATELET COUNT, AUTOMATED 305 10^3/uL (150-450); RED BLOOD COUNT 5.17 10^6/uL (4.30-6.10); WHITE BLOOD COUNT 5.2 10^3/uL (4.0-10.0)
[2019-11-18 07:51] LABS: ALBUMIN 3.4 GM/DL (3.2-5.2); ALT/SGPT 44 U/L (12-78); BILIRUBIN,TOTAL 0.4 MG/DL (0.2-1.0); BLOOD UREA NITROGEN 15 MG/DL (7-18); CARBON DIOXIDE LEVEL 26 MEQ/L (21-32); CHLORIDE LEVEL 107 MEQ/L (98-107); CREATININE FOR GFR 0.72 MG/DL (0.70-1.30); GLOMERULAR FILTRATION RATE > 60.0 (>60); GLUCOSE, FASTING 159 MG/DL (70-100); POTASSIUM SERUM 3.9 MEQ/L (3.5-5.1); SODIUM LEVEL 139 MEQ/L (136-145); TOTAL PROTEIN 7.8 GM/DL (6.4-8.2)
[2019-11-18] MEDS: HumaLOG INSULIN (NovoLOG) PER UNIT SC SCH (08:41)
[2019-11-18] MEDS ORDERED: LEVA750T7 PO (11:20)
--- NOTE | 2019-11-18 11:29 | DS.PDOC ---
Discharge Summary General Date of Admission Nov 14, 2019 at 13:35 Date of Discharge 11/18/19 Attending Physician: KIMMIE MARTINI MD Discharge Summary PROCEDURES PERFORMED DURING STAY: Left foot first toe amputation ADMITTING DIAGNOSES: 1. Osteomyelitis, chronic foot wound, uncontrolled diabetes mellitus. DISCHARGE DIAGNOSES: 1. Osteomyelitis, chronic foot wound, uncontrolled diabetes mellitus. COMPLICATIONS/CHIEF COMPLAINT: Chronic Osteomyelitis W Draining Sinus, Left Ankle. HISTORY OF PRESENT ILLNESS: 34-year-old male with past medical history of uncontrolled diabetes mellitus and a chronic foot wound was admitted for left foot first toe amputation due to osteomyelitis. Patient has done well postop, cultures have grown Pseudomonas and Raoultella. Patient was evaluated by infectious disease and cleared for discharge today with Levaquin 750 mg daily for 10 days. Patient has been clinically and hemodynamically stable since his procedure, without any complaints today, cleared for discharge home and outpatient follow-up. HOSPITAL COURSE: As above. DISCHARGE MEDICATIONS: Please see below. ALLERGIES: Please see below. PHYSICAL EXAMINATION: VITAL SIGNS: Please see below. GENERAL: No distress HEENT: Normocephalic, atraumatic, moist mucous membranes NECK: Supple CARDIOVASCULAR EXAMINATION: S1, S2, no murmurs RESPIRATORY EXAMINATION: Clear to auscultation, no wheezing ABDOMINAL EXAMINATION: Soft, nontender, nondistended, positive bowel sounds EXTREMITIES: Left foot dressing in place SKIN: No rash NEUROLOGICAL EXAMINATION: Alert and oriented 3, no focal deficits PSYCHIATRIC EXAMINATION: Calm and cooperative LABORATORY DATA: Please see below. PROGNOSIS: Fair ACTIVITY: As tolerated. DIET: Consistent carbs DISCHARGE PLAN: Follow with infectious disease, podiatry and PCP in 1-2 weeks DISPOSITION: Home. DISCHARGE INSTRUCTIONS: 1. As above. DISCHARGE CONDITION: Stable. TIME SPENT ON DISCHARGE: Greater than 22 minutes. Vital Signs/I&Os Vital Signs Date Time Temp Pulse Resp B/P (MAP) Pulse Ox O2 Delivery O2 Flow Rate FiO2 11/18/19 06:00 97.5 67 20 107/67 (80) 97 Room Air I&O- Last 24 Hours up to 6 AM 11/18/19 06:00 Intake Total 2410 ml Output Total 0 ml Balance 2410 ml Laboratory Data Labs 24H Laboratory Tests 2 11/17/19 16:45: Bedside Glucose (Misc Panel) 258H 11/17/19 20:24: Bedside Glucose (Misc Panel) 262H 11/18/19 06:56: Nucleated Red Blood Cells % (auto) 0.0, Anion Gap 6L, Glomerular Filtration Rate > 60.0, Calcium Level 9.0, Total Bilirubin 0.4, Aspartate Amino Transf (AST/SGOT) 23, Alanine Aminotransferase (ALT/SGPT) 44, Alkaline Phosphatase 105, Total Protein 7.8, Albumin 3.4, Albumin/Globulin Ratio 0.77L CBC/BMP Laboratory Tests 11/18/19 06:56 FSBS Laboratory Tests Test 11/17/19 16:45 11/17/19 20:24 Range/Units Bedside Glucose (Misc Panel) 258 262 70-105 MG/DL Microbiology Microbiology 11/14/19 Blood Culture - Preliminary, Resulted No Growth after 72 hours. All specime... 11/14/19 Blood Culture - Preliminary, Resulted No Growth after 72 hours. All specime... 11/14/19 Gram Stain - Final, Complete 11/14/19 Wound Culture - Final, Complete Raoultella Ornithinolytica Pseudomonas Aeruginosa 11/14/19 Anaerobic Culture - Final, Complete Discharge Medications Scheduled Cholecalciferol (Vitamin D3) (Vitamin D3) 5,000 Unit Tab.rapdis, 5,000 UNIT PO DAILY, (Reported) Dapagliflozin Propanediol (Farxiga) 10 Mg Tablet, 1 TAB PO DAILY, (Reported) Insulin Detemir (Levemir) 100 Unit/1 Ml Vial, 40 UNITS SC QHS, (Reported) Insulin Lispro (Humalog Kwikpen U-100) 100 Unit/1 Ml Insuln.pen, 1 DOSE SC AC, (Reported) PER SLIDING SCALE. Levofloxacin (Levaquin) 750 Mg Tablet, 1 TAB PO DAILY Metformin HCl (Metformin HCl) 500 Mg Tablet, 1,000 MG PO BID, (Reported) Scheduled PRN Acetaminophen (Acetaminophen) 500 Mg Tablet, 1,000 MG PO Q6H PRN for PAIN / FEVER, (Reported) Allergies Coded Allergies: Penicillins (Verified Allergy, Intermediate, rash hives, 09/06/19) amoxicillin (Verified Allergy, Intermediate, HIVES, 11/14/19) meropenem (Verified Adverse Reaction, Mild, drug fever, 09/23/19) KIMMIE MARTINI MD Nov 18, 2019 11:29
--- NOTE | 2019-11-18 18:14 | IPN ---
DATE: 11/18/2019 Sukumar is anxious to go home today. Did not ambulate as much last night and this morning and therefore bleeding has markedly decreased. LABORATORY DATA: White count 5.2, hemoglobin 14, hematocrit 43.4, platelets 305. Sodium 139, potassium 3.9, chloride 107, bicarbonate 26 BUN 15 creatinine 0.72, glucose 159, calcium 9.0. AST 23, ALT 44, alkaline phosphatase 105, total protein 7.8, albumin 3.4. Wound culture was positive for Raoultella, sensitive to levofloxacin and pseudomonas, intermediate to levofloxacin. Pathology of the left big toe shows a acute and chronic inflammation consistent with myelitis. IMPRESSION: Chronic osteomyelitis status post amputation of the big toe with bone culture positive for Raoultella sensitive to levofloxacin and pseudomonas, which is intermediate to levofloxacin. On physical exam there is no evidence of cellulitis. There is one suture that has a little dehiscence due to him walking on it yesterday. There is no recurrent bleeding. No tenderness. No redness. No purulence. PLAN: The patient will be discharged home with levofloxacin 750 mg daily, even though the Pseudomonas is intermediate. I do not see any residual infection. If the patient fails levofloxacin with worsening infection, next week we will treat him with intravenous (IV) tobramycin at the infusion unit at [facility]. The patient wanted to try the oral antibiotic first to avoid hospitalization and infusion unit and visits to the hospital. I think it is appropriate, especially that the infected bone has been completely excised. He has received two days of IV aztreonam, a total of six doses. The patient will follow up with Dr. Contreras and Dr. Barr next week. [facility]OSPITALStephen
== END 2019-11-18 12:15 | disposition home or self-care (01) | DRG 314 ==
LOC: EDSTATUS 12:56 → M OR 13:35 → M MS5PR 17:55
PROVIDERS: ADMIT Student in an Organized Health Care Education/Training Program; ATTEND Internal Medicine
PROC: 0Y6Q0Z0 Detachment at Left 1st Toe, Complete, Open Approach (ICD-10-PCS; principal; 2019-11-14 09:56)
DX: E11.69 Type 2 diabetes mellitus with other specified complication (principal); E11.65 Type 2 diabetes mellitus with hyperglycemia; L97.529 Non-pressure chronic ulcer of other part of left foot with unspecified severity; F17.200 Nicotine dependence, unspecified, uncomplicated; Z88.0 Allergy status to penicillin; Z88.1 Allergy status to other antibiotic agents; R21 Rash and other nonspecific skin eruption; B96.5 Pseudomonas (aeruginosa) (mallei) (pseudomallei) as the cause of diseases classified elsewhere; Z79.4 Long term (current) use of insulin; Z79.899 Other long term (current) drug therapy

== ENCOUNTER → 2019-11-24 | Outpatient (REF) | payer BC ==
[~2019-11-24] MED LIST changes: +FARX1TAB3 PO; +LEVA750T7 PO; +METF500T13 PO; +VITA500079 PO
[2019-11-24 10:26] LABS: BASO % 0.5 % (0.0-1.0); EOS # 0.2 10^3/uL (0.0-0.5); EOS % 2.4 % (0.0-3.0); HEMATOCRIT 46.2 % (42.0-52.0); HEMOGLOBIN 15.1 g/dl (13.5-17.5); LYMPH % 47.7 % (24.0-44.0); MEAN CORPUSCULAR HEMOGLOBIN 27.9 pg (27.0-33.0); MEAN CORPUSCULAR HGB CONC 32.7 g/dl (32.0-36.5); MEAN CORPUSCULAR VOLUME 85.2 fl (80.0-96.0); MONO # 0.4 10^3/uL (0.0-0.8); MONO % 6.6 % (0.0-5.0); NEUTROPHILS # 2.7 10^3/uL (1.5-8.5); NEUTROPHILS % 42.6 % (36.0-66.0); PLATELET COUNT, AUTOMATED 373 10^3/uL (150-450); RED BLOOD COUNT 5.42 10^6/uL (4.30-6.10); WHITE BLOOD COUNT 6.4 10^3/uL (4.0-10.0)
[2019-11-24 10:38] LABS: BLOOD UREA NITROGEN 23 MG/DL (7-18); C REACTIVE PROTEIN QUANTITATIV < 0.30 MG/DL (0.00-0.30); CALCIUM LEVEL 9.8 MG/DL (8.5-10.1); CARBON DIOXIDE LEVEL 23 MEQ/L (21-32); CHLORIDE LEVEL 109 MEQ/L (98-107); CREATININE FOR GFR 0.84 MG/DL (0.70-1.30); GLOMERULAR FILTRATION RATE > 60.0 (>60); GLUCOSE, FASTING 118 MG/DL (70-100); POTASSIUM SERUM 4.7 MEQ/L (3.5-5.1); SODIUM LEVEL 141 MEQ/L (136-145)
[2019-11-24 11:02] LABS: ERYTHROCYTE SEDIMENTATION RATE 24 mm/hr (0-15)
== END ==
LOC: M SFHCPLAZ 08:07
PROVIDERS: ATTEND Internal Medicine Infectious Disease
DX: M86.672 Other chronic osteomyelitis, left ankle and foot (principal)

== ENCOUNTER → 2020-03-23 | Outpatient (REF) | payer BC, MEDICAID ==
[~2020-03-23] MED LIST changes: +ACET1TAB55 PO; +ATOR1TAB21 PO; +LINE1TAB6 PO; +METF-838 PO; +NYST50SS SS; +RAMI1CAP22 PO; +[UNRECOGNIZED DRUG - CODE] IV
== END ==
LOC: M LAB REF 13:17
PROVIDERS: ATTEND Physician Assistant
DX: E11.622 Type 2 diabetes mellitus with other skin ulcer (principal); L97.529 Non-pressure chronic ulcer of other part of left foot with unspecified severity

== ENCOUNTER → 2020-06-13 | Outpatient (REF) | payer BC | LOC: M LAB REF 09:04 | PROVIDERS: ATTEND Surgery | DX: E11.621 Type 2 diabetes mellitus with foot ulcer (principal); L97.424 Non-pressure chronic ulcer of left heel and midfoot with necrosis of bone ==

== ENCOUNTER 2020-06-21 13:53 | Inpatient (IN) | payer BC ==
[~2020-06-21] VITALS: Ht 195.6 cm; Wt 130.0 kg
[~2020-06-21 13:53] MED LIST changes: -ACET1TAB55 PO; -ATOR1TAB21 PO; -LINE1TAB6 PO; -METF-838 PO; -NYST50SS SS; -RAMI1CAP22 PO; -[UNRECOGNIZED DRUG - CODE] IV
[2020-06-21] MEDS ORDERED: LEVO500T3 PO (14:05)
[2020-06-21] MEDS ORDERED: RAMI1CAP22 PO (14:05)
[2020-06-21] MEDS ORDERED: ATOR1TAB21 PO (14:05)
[2020-06-21 14:59] LABS: BASO % 0.3 % (0.0-1.0); EOS # 0.1 10^3/uL (0.0-0.5); EOS % 1.5 % (0.0-3.0); HEMATOCRIT 47.1 % (42.0-52.0); HEMOGLOBIN 14.9 g/dl (13.5-17.5); LYMPH # 2.9 10^3/uL (1.5-5.0); LYMPH % 30.9 % (24.0-44.0); MEAN CORPUSCULAR HGB CONC 31.6 g/dl (32.0-36.5); MEAN CORPUSCULAR VOLUME 82.1 fl (80.0-96.0); MONO # 0.6 10^3/uL (0.0-0.8); MONO % 5.8 % (0.0-5.0); NEUTROPHILS # 5.8 10^3/uL (1.5-8.5); NEUTROPHILS % 61.1 % (36.0-66.0); PLATELET COUNT, AUTOMATED 437 10^3/uL (150-450); RED BLOOD COUNT 5.74 10^6/uL (4.30-6.10); WHITE BLOOD COUNT 9.5 10^3/uL (4.0-10.0)
[2020-06-21] MEDS ORDERED: BASA100I SC (15:04)
[2020-06-21] MEDS ORDERED: METF-838 PO (15:04)
[2020-06-21 15:19] LABS: ERYTHROCYTE SEDIMENTATION RATE 37 mm/hr (0-15)
[2020-06-21] MEDS ORDERED: GLUCAGON INJ 1MG VIAL SC PRN (16:30)
[2020-06-21] MEDS ORDERED: DEXTROSE 50% 50 ML SYRINGE IV PRN (16:30)
[2020-06-21] MEDS ORDERED: GLUCOSE 4GM CHEW TABLET PO PRN (16:30)
--- NOTE | 2020-06-21 16:52 | HPEPDOC ---
[facility] Medical History & Physical Date of Admission Jun 21, 2020 Date of Service: Jun 21, 2020 History and Physical Chief complaint: Presented to the ER, sent in by wound care for worsening left foot infection History of present illness: Patient is a 35 year old male with a PMHx of IDDM2, HTN, DLP, Hx of Osteomyelitis of the Left 1st toe (s/p amputation 10/2019), who presented to the emergency room sent by Dr. Timmons for worsening left foot infection. Patient reported that last week he had fevers and chills and has been following with Dr. Timmons for the last 6 months for continued wound care of his left foot. Patient had a wound culture completed on 06/13; that has grown out Staphylococcus aureus and Pseudomonas aeruginosa resistant to Levaquin. Patient was sent to the emergency room for further evaluation and admission for IV antibiotics. Patient denies any chest pain, shortness breath, palpitations, nausea, vomiting, abdominal pain, constipation, diarrhea, or urinary discomfort. He reports his appetite is fairly normal and has experience an increase in his weight. 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 Review of Systems: 10 point review of systems complete, all negative otherwise stated in HPI Physical exam: - Vitals: BP [138/94], HR [109], RR [20], Sat [99%RA], Temp [97.8F] - General: Lying in bed, Speaking in full sentences, AAOx3 - HEENT: NC, AT, PERRLA - CVS: RRR, +S1S2 - Lungs: Fair air entry bilaterally, No appreciable wheezing / rales / rhonchi - Abdomen: Soft, Non-distended, Non-tender - Extremities: No lower extremity edema, No calf tenderness, Left foot with 1st digit amputation, surrounding erythema / warmth / tenderness, 2 draining sites noted, foul odor - Neuro: No focal motor or sensory deficit - Skin: No visible rashes Assessment and Plan: Worsening left foot infection / Cellulitis; possibly Osteomyelitis - Patient has a history of a right foot first digit amputations for osteomyelitis - Patient also Dr. Timmons and was sent to the ER for worsening left foot infection - Wound culture 06/13: Staph aureus and Pseudomonas resistant to Levaquin - Physical reveals erythema, warmth, tenderness, foul odor, and 2 areas of drainage - No significant leukocytosis; mild elevation of ESR and CRP - Will get XR foot / MRI foot - Blood cultures pending - Discussed case with podiatry will be on consultation; plan for surgical intervention tonight - Will cover with broad-spectrum antibiotics, vancomycin and Cefepime (Re: Patient has an allergic reaction to penicillins and meropenem) Allergy profile - Patient is allergic to penicillins and meropenem - In August 2019 patient had an adverse reaction to meropenem and was spiking fevers of 105 - Discussed with infectious disease; will reserve the use of aztreonam at this time IDDM2 - Will start ISS - c/w Reduced dose of long acting insulin HTN - BP well controlled - c/w Ramipril DLP - c/w Atorvastatin Hx of Osteomyelitis of the Left 1st toe - s/p amputation 10/2019 DVT prophylaxis - Will start Heparin Vital Signs Vital Signs Date Time Temp Pulse Resp B/P (MAP) Pulse Ox O2 Delivery O2 Flow Rate FiO2 06/21/20 14:13 06/21/20 13:54 97.8 109 20 99 Room Air Laboratory Data Labs 24H Laboratory Tests 2 06/21/20 14:50: Immature Granulocyte % (Auto) 0.4, Neutrophils (%) (Auto) 61.1, Lymphocytes (%) (Auto) 30.9, Monocytes (%) (Auto) 5.8H, Eosinophils (%) (Auto) 1.5, Basophils (%) (Auto) 0.3, Neutrophils # (Auto) 5.8, Lymphocytes # (Auto) 2.9, Monocytes # (Auto) 0.6, Eosinophils # (Auto) 0.1, Basophils # (Auto) 0.0, Nucleated Red Blood Cells % (auto) 0.0, Erythrocyte Sedimentation Rate 37H, C-Reactive Protein, Quantitative 0.66H 06/21/20 15:15: POC Glucose (Misc Panel) 117H, POC Sodium (Misc Panel) 139, POC Potassium (Misc Panel) 4.2, POC Chloride (Misc Panel) 102, POC Total CO2 (Misc Panel) 24.0, POC Blood Urea Nitrogen (Misc Panel 20, POC Ionized Calcium (Misc Panel) 5.0, POC Creatinine (Misc Panel) 0.8, POC Hematocrit (Misc Panel) 47.0 06/21/20 16:14: CBC/BMP Laboratory Tests 06/21/20 14:50 Microbiology Microbiology 06/21/20 Blood Culture, Received Pending 06/21/20 Blood Culture, Received Pending Home Medications Scheduled Atorvastatin Calcium (Atorvastatin Calcium) 20 Mg Tablet, 20 MG PO DAILY Dapagliflozin Propanediol (Farxiga) 10 Mg Tablet, 5 MG PO DAILY Insulin Glargine,Hum.rec.anlog (Basaglar Kwikpen U-100) 100 Unit/1 Ml Insuln.pen, 44 UNIT SC QHS Insulin Lispro (Humalog Kwikpen U-100) 100 Unit/1 Ml Insuln.pen, 1 DOSE SC AC PER SLIDING SCALE. Levofloxacin (Levofloxacin) 500 Mg Tablet, 500 MG PO DAILY for 10 days, pt has 3 days left of course Metformin HCl (Metformin HCl ER) 500 Mg Tab.er.24h, 2,000 MG PO DAILY Ramipril (Ramipril) 2.5 Mg Capsule, 2.5 MG PO DAILY Allergies Coded Allergies: Penicillins (Verified Allergy, Intermediate, rash hives, 09/06/19) amoxicillin (Verified Allergy, Intermediate, HIVES, 11/14/19) meropenem (Verified Adverse Reaction, Mild, drug fever, 09/23/19) YANG PULLIAM MD Jun 21, 2020 16:52
[2020-06-21] MEDS ORDERED: CEFEPIME HCL 2 GM in D5W MINI-BAG PLUS 50 ML IV SCH ×2 (17:00→23:00)
[2020-06-21] MEDS ORDERED: PROHANCE 279.3MG/ML 5ML VIAL As Ordered ONE (17:27)
[2020-06-21] MEDS ORDERED: PROHANCE 279.3MG/ML 15ML VIAL As Ordered ONE (17:28)
[2020-06-21] MEDS: HumaLOG INSULIN (NovoLOG) PER UNIT SC SCH ×2 (17:30→21:00)
--- NOTE | 2020-06-21 17:35 | REP ---
INDICATION: l foot infection COMPARISON: 11/14/2019. TECHNIQUE: Four views obtained. FINDINGS: There is evidence of prior amputation at the 1st metatarsophalangeal joint. There is diffuse soft tissue swelling of the forefoot. There appears to be a soft tissue ulceration adjacent to the head of the 2nd metatarsal. The distal 3rd of the 2nd metatarsal demonstrates cortical destruction and periosteal reaction compatible with osteomyelitis. Cortical thinning and suspected lucency is seen in the distal 1st metatarsal and there may be acute or chronic osteomyelitis at that location. There does appear to be an adjacent soft tissue ulceration at the head of the 1st metatarsal. There is mild calcaneal spurring. IMPRESSION: Findings compatible with osteomyelitis of the distal 3rd of the 2nd metatarsal. There may be some degree of acute or chronic osteomyelitis of the distal 3rd of the 1st metatarsal. There are adjacent soft tissue ulcerations. <Electronically signed by Hany Plaza > 06/21/20 [id number]
[2020-06-21] MEDS ORDERED: VANCOMYCIN HCL 1,000 MG, VIAL MATE ADAPTER 1 EACH in D5W 250 ML IV SCH (18:00)
--- NOTE | 2020-06-21 18:00 | REPVR ---
PROCEDURE INFORMATION: Exam: MR Left Lower Extremity Other Than Joint Without and With Contrast; Foot Exam date and time: 06/21/2020 5:36 PM Age: 35 years old Clinical indication: Other: Wound; Prior surgery; Surgery date: 6+ months; Surgery type: 1st toe amputated in October; Additional info: Left diabetic wound, R/O osteomyelitis TECHNIQUE: Imaging protocol: MR of the Left lower extremity without and with intravenous contrast. Exam focused on the foot. Contrast material: PROHANCE; Contrast volume: 20 ml; Contrast route: INTRAVENOUS (IV); COMPARISON: 1. MRI-Foot W/O FOL WITH 09/09/2019 7:03 PM 2. CR - Foot, complete 06/21/2020 4:02:55 PM FINDINGS: There is diffuse soft tissue swelling and subcutaneous edema with associated enhancement and overlying skin thickening, compatible with cellulitis/myositis. There is a deep soft tissue ulceration along the plantar surface of the 2nd metatarsophalangeal joint with a moderate amount of subjacent loculated, enhancing fluid, extending into and around the 2nd metatarsophalangeal joint space. There is no soft tissue mass. No acute tendon or ligament injury is identified. 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 The 2nd metatarsophalangeal joint is dislocated in there are severe erosive/destructive changes in the metatarsal head. There is pronounced bone marrow edema in the 2nd metatarsal and proximal phalangeal base, which is clearly evident on the fluid sensitive and T1 weighted sequences and demonstrates enhancement after administration of intravenous contrast material. There is a focal area heterogeneous signal in the distal hallux metatarsal shaft, which may be postoperative in nature. There are scattered degenerative changes with associated subcortical cystic change. IMPRESSION: 1. Acute septic arthritis of the 2nd metatarsophalangeal joint with associated osteomyelitis of the metatarsal and proximal phalanx, as described above. 2. Additional findings, as above. Electronically signed by: Robles Palacios On 06/21/2020 18:00:01 PM
[2020-06-21 18:52] VITALS: BP 159/104
[2020-06-21] MEDS ORDERED: VANCOMYCIN HCL 1,000 MG, VIAL MATE ADAPTER 1 EACH in D5W 250 ML IV ONE ×2 (19:00→22:00)
[2020-06-21] MEDS ORDERED: fentaNYL 100 MCG/2 ML INJECTION (J3010) As Ordered ONE (19:37)
[2020-06-21] MEDS ORDERED: propofoL 200 MG/20 ML VIAL As Ordered ONE ×2 (19:37→20:33)
[2020-06-21] MEDS ORDERED: LIDOCAINE 2% 100MG/5ML SDV (FOR ANES.) As Ordered ONE (19:37)
[2020-06-21] MEDS ORDERED: MIDAZOLAM INJ 2MG/2ML VIAL (J2250 PER 1MG) As Ordered ONE (19:37)
[2020-06-21] MEDS ORDERED: VANCOMYCIN 1000MG/20ML VIAL As Ordered ONE (19:44)
[2020-06-21] MEDS ORDERED: BUPIVACAINE HCL 0.5% 10ML VIAL As Ordered ONE (19:49)
[2020-06-21] MEDS ORDERED: LIDOCAINE 1% MDV 20ML VIAL As Ordered ONE (19:49)
[2020-06-21] MEDS ORDERED: ONDANSETRON 4MG/2ML VIAL IV PRN (21:15)
[2020-06-21] MEDS ORDERED: PERCOCET 5MG/325MG TAB PO PRN (21:15)
[2020-06-21] MEDS ORDERED: fentaNYL 100 MCG/2 ML INJECTION (J3010) IV PRN (21:15)
[2020-06-21] MEDS ORDERED: METOCLOPRAMIDE INJ 10MG/2ML VIAL (J2765 PER 1) IV PRN (21:15)
[2020-06-21] MEDS ORDERED: LR 1,000 ML IV SCH (21:15)
[2020-06-21 21:36] VITALS: BP 125/86
[2020-06-21] MEDS: NS 1,000 ML IV SCH (21:48)
[2020-06-21 22:00] VITALS: BP 119/85
[2020-06-21 22:30] VITALS: BP 119/82
[2020-06-21] MEDS: HEPARIN SOD (PORCINE) 5000UNITS/ML 1ML VIAL/SYRINGE SC SCH (22:34)
[2020-06-21] MEDS: LEVEMIR (INSULIN DETEMIR) 1 UNITS/0.01ML SC SCH (22:35)
[2020-06-21 23:30] VITALS: BP 129/80
[2020-06-22] VITALS (9 sets, daily range): BP systolic 103–138; BP diastolic 53–82; PULSE 140
[2020-06-22 02:41] LABS: HEMATOCRIT 40.7 % (42.0-52.0); MEAN CORPUSCULAR HGB CONC 31.7 g/dl (32.0-36.5); MEAN CORPUSCULAR VOLUME 81.9 fl (80.0-96.0); RED BLOOD COUNT 4.97 10^6/uL (4.30-6.10)
[2020-06-22 02:57] LABS: HEMOGLOBIN 12.9 g/dl (13.5-17.5); PLATELET COUNT, AUTOMATED 318 10^3/uL (150-450)
[2020-06-22 03:06] LABS: ALT/SGPT 38 U/L (12-78); BILIRUBIN,TOTAL 0.3 MG/DL (0.2-1.0); BLOOD UREA NITROGEN 25 MG/DL (7-18); CALCIUM LEVEL 8.8 MG/DL (8.5-10.1); CARBON DIOXIDE LEVEL 25 MEQ/L (21-32); CHLORIDE LEVEL 105 MEQ/L (98-107); GLOMERULAR FILTRATION RATE > 60.0 (>60); GLUCOSE, FASTING 231 MG/DL (70-100); POTASSIUM SERUM 4.3 MEQ/L (3.5-5.1); SODIUM LEVEL 139 MEQ/L (136-145); TOTAL PROTEIN 6.7 GM/DL (6.4-8.2)
[2020-06-22] MEDS: VANCOMYCIN HCL 1,000 MG, VIAL MATE ADAPTER 1 EACH in D5W 250 ML IV SCH ×3 (03:30→20:45)
[2020-06-22] MEDS: ACETAMINOPHEN TAB 650MG DOSE (2X325MG) PO PRN ×5 (04:48→21:40)
[2020-06-22 05:27] LABS: EOS % 0.3 % (0.0-3.0); HEMATOCRIT 43.8 % (42.0-52.0); HEMOGLOBIN 13.6 g/dl (13.5-17.5); LYMPH # 0.3 10^3/uL (1.5-5.0); LYMPH % 4.1 % (24.0-44.0); MEAN CORPUSCULAR HEMOGLOBIN 25.6 pg (27.0-33.0); MEAN CORPUSCULAR HGB CONC 31.1 g/dl (32.0-36.5); MEAN CORPUSCULAR VOLUME 82.3 fl (80.0-96.0); MONO # 0.1 10^3/uL (0.0-0.8); MONO % 1.2 % (0.0-5.0); NEUTROPHILS # 6.2 10^3/uL (1.5-8.5); NEUTROPHILS % 93.8 % (36.0-66.0); PLATELET COUNT, AUTOMATED 330 10^3/uL (150-450); RED BLOOD COUNT 5.32 10^6/uL (4.30-6.10); WHITE BLOOD COUNT 6.6 10^3/uL (4.0-10.0)
[2020-06-22 05:45] LABS: BLOOD UREA NITROGEN 29 MG/DL (7-18); CALCIUM LEVEL 8.4 MG/DL (8.5-10.1); CARBON DIOXIDE LEVEL 23 MEQ/L (21-32); CHLORIDE LEVEL 103 MEQ/L (98-107); CREATININE FOR GFR 1.54 MG/DL (0.70-1.30); GLOMERULAR FILTRATION RATE 55.3 (>60); GLUCOSE, FASTING 295 MG/DL (70-100); MAGNESIUM LEVEL 1.6 MG/DL (1.8-2.4); POTASSIUM SERUM 4.5 MEQ/L (3.5-5.1); SODIUM LEVEL 135 MEQ/L (136-145)
[2020-06-22] MEDS: HEPARIN SOD (PORCINE) 5000UNITS/ML 1ML VIAL/SYRINGE SC SCH ×3 (06:20→21:40)
[2020-06-22] MEDS ORDERED: MAG SULF 1GM/100ML (MAG RUN) 1 GM in IV 1 EA IV ONE (06:45)
[2020-06-22] MEDS: AZTREONAM 2 GM in D5W MINI-BAG PLUS 50 ML IV SCH ×3 (06:54→22:27)
[2020-06-22 07:44] LABS: CK-MB VALUE MASS < 1.0 NG/ML (<3.6); CPK CREATINE PHOSPHOKINASE 87 U/L (39-308); MB/CK RELATIVE INDEX 1.15 (< OR =4); TROPONIN I < 0.02 NG/ML (< 0.10)
--- NOTE | 2020-06-22 07:44 | CR ---
DATE OF CONSULTATION: 06/21/2020 REASON FOR CONSULTATION: Left foot infection. HISTORY OF PRESENT ILLNESS: Stephen Aguirre is a pleasant 35-year-old male who was sent to the E.R. from Wound Care due to worsening left foot infection. He was seen previously by myself approximately in September 2019. He subsequently had amputation of his left hallux. He has been undergoing wound care for approximately the last 6 months due to wounds related to his initial infection. He was noted to have worsening infection with purulent drainage coming out of his wounds and was sent to the Emergency Room for amputation. PAST MEDICAL HISTORY: 1. Insulin dependent diabetes. 2. Hypertension. 3. Hyperlipidemia. PAST SURGICAL HISTORY: 1. Appendectomy. 2. Left hallux amputation. ALLERGIES: * Penicillin. * Amoxicillin. * Meropenem. FAMILY HISTORY: Diabetes. SOCIAL HISTORY: He denies alcohol or drug use. Former smoker. REVIEW OF SYSTEMS: He denies nausea, vomiting, fever, chills. LABORATORY DATA: Labs were reviewed. White blood cell count is 9.5, hemoglobin 14.9, ESR is 37. CRP is 0.66. Wound culture, blood cultures are pending. Previous wound culture 06/13 grew staph aureus and pseudomonas. IMAGING STUDIES: Reviewed. Foot x-ray shows findings compatible with osteomyelitis of the second metatarsal. Foot MRI shows findings consistent with second toe and metatarsal osteomyelitis. PHYSICAL EXAMINATION: VITAL SIGNS: T-max 99.6. EXTREMITIES: Pedal pulses are palpable. Previous amputation of hallux noted. There is an ulceration with purulent discharge stemming from the plantar aspect of the second adjacent to the metatarsal head. ASSESSMENT: A 35-year-old male with diabetes and osteomyelitis. PLAN: Patient for O.R. now for amputation of second toe and metatarsal. We will take wound cultures. Continue present antibiotics. He is to be scheduled with Vancomycin and Cefepime. Further treatment and hospital stay will depend upon degree of infection as noted intraoperatively. DIOMEDES
[2020-06-22] MEDS: HumaLOG INSULIN (NovoLOG) PER UNIT SC SCH ×4 (08:10→20:46)
[2020-06-22] MEDS: ATORVASTATIN 20 MG TAB PO SCH (08:10)
[2020-06-22] MEDS: NS 1,000 ML IV SCH ×3 (08:12→19:15)
[2020-06-22] MEDS: ramipriL 1.25 MG CAP PO SCH (08:27)
--- NOTE | 2020-06-22 08:53 | ECGEPIP ---
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 No prior tracing for comparison. Clincal correlation advised Electronically Signed on 06-22-2020 8:53:06 EDT by Gus Galvez
[2020-06-22] MEDS ORDERED: INFLUENZA QUADRIVALENT PF VACCINE 0.5ML SYRINGE IM ONE (09:00)
--- NOTE | 2020-06-22 09:52 | IPNPDOC ---
Text Note Date of Service The patient was seen on 06/22/20. NOTE Subjective: Patient seen and examined at bedside. Overnight events significant for fevers and tachycardia - which appeared to be atrial flutter on ECG - reverted to sinus tachy. Patient does complain this morning of chest pain which he localizes to his midepigastric area. He denies any other complaints. Yesterday he did undergo left 2nd toe/metatarsal amputation with Dr. Cameron of podiatry. Objective: General: NAD, lying comfortably in bed HEENT: NC/AT, EOMI, PERRL, poor dentition Lungs: CTA B/L Heart: +S1S2, systolic murmur, tachy Abd: soft, NT, +BS, obese Ext: RLE boot in place, LLE bandages in place Assessment and Plan: 35 yo male for left send toe osteomyelitis s/p amputation, with PMHx of IDDM, previous left 1st toe amputation, complicated with fevers/tachycardia. #tachycardia - likely secondary to drug fever - possible brief episode of atrial flutter - echocardiogram pending - continue telemetry monitoring #fevers - likely drug fevers - allergy to PCN and meropenem - was transitioned to aztreonam this morning - ID c/s pending #LLE osteomyelitis - sent by Dr. Timmons to the ER for worsening left foot infection - Wound culture 06/13: Staph aureus and Pseudomonas resistant to Levaquin - s/p amputation - Dr. Cameron of podiatry - BCx negative to date - #drug allergies - ID c/s pending #IDDM2 - Will start ISS - c/w Reduced dose of long acting insulin #HTN - BP well controlled - c/w Ramipril #DLP - c/w Atorvastatin #Hx of Osteomyelitis of the Left 1st toe - s/p amputation 10/2019 #DVT prophylaxis VS,Fishbone, I+O VS, Fishbone, I+O Laboratory Tests 06/21/20 14:50 06/22/20 02:25 06/22/20 05:09 Vital Signs Date Time Temp Pulse Resp B/P (MAP) Pulse Ox O2 Delivery O2 Flow Rate FiO2 06/22/20 08:00 101.8 120 18 117/54 (75) 93 06/22/20 04:00 Room Air I&O- Last 24 Hours up to 6 AM 06/22/20 06:00 Intake Total 780 ml Output Total 525 ml Balance 255 ml TYLER RIZO MD Jun 22, 2020 09:52
[2020-06-22 13:49] LABS: CK-MB VALUE MASS < 1.0 NG/ML (<3.6); CPK CREATINE PHOSPHOKINASE 78 U/L (39-308); MB/CK RELATIVE INDEX 1.28 (< OR =4); TROPONIN I < 0.02 NG/ML (< 0.10)
--- NOTE | 2020-06-22 14:02 | RO ---
DATE OF OPERATION: 06/21/2020 PREOPERATIVE DIAGNOSIS: Left foot second toe and metatarsal osteomyelitis and diabetic foot infection. POSTOPERATIVE DIAGNOSIS: Left foot second toe and metatarsal osteomyelitis and diabetic foot infection. PROCEDURE: Left second toe and metatarsal amputation with incision and drainage. 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 PREOPERATIVE INJECTION: 15 mL of a 1:1 mixture of 1% lidocaine plain and 0.5% Marcaine plain. ESTIMATED BLOOD LOSS: Minimal. MATERIALS: 3-0 nylon. INJECTABLES: None. SPECIMENS: Left second toe and metatarsal bone. COMPLICATIONS: None. CONDITION: Stable. INDICATIONS: Mr. Aguirre is a 35-year-old diabetic male who was admitted to the [facility] with left foot infection. He had a longstanding wound under the care of the wound care center. It was noted to be worsening with purulent drainage. An x-ray and MRI were taken in the ER which showed signs consistent with osteomyelitis and there was a wound that probed to bone. Decision was made to bring him to the operating room for a left second toe and metatarsal bone amputation. The patient's side and site were identified and marked in the preoperative area. Consent was reviewed and obtained. The risks, complications and alternatives to the procedure were explained to the patient in detail and all questions were answered. DESCRIPTION OF PROCEDURE: The patient was brought to the operating room and placed on the operating room table in the supine position. Monitored anesthesia care was delivered by the anesthesia team. Preoperative injection of 15 mL of a 1:1 mixture of 1% lidocaine plain and 0.5% Marcaine plain were injected to the left foot. The left foot was prepped and draped in normal sterile fashion. The tourniquet was applied to the left ankle and inflated at 250 mmHg. An elliptical incision was carried around the second toe and extending over the metatarsal bone. This was carried through full thickness to the second with a #15 blade. The toe was disarticulated at the metatarsophalangeal joint and the bone was inspected. There was fracturing and necrotic appearance of the distal third of the second metatarsal bone. Overlying soft tissue attachments were freed using a bone [place] and an osteotomy was performed at approximately the mid point of the bone. The remaining portions of the bone were sent for pathology. Some debridement with a rongeur of nonviable tissue including tendon, soft tissue and skin were performed. There was not significant purulence just below the wound surface, which had been cultured at the beginning of the case; aerobic and anaerobic. The site was then irrigated with copious saline and the incision was repaired with 3-0 nylon. The patient was brought to the PACU with vital signs stable and neurovascular status intact. He will be admitted to the floor for antibiotics and monitoring. Will follow. DIOMEDES
[2020-06-22] MEDS: LEVEMIR (INSULIN DETEMIR) 1 UNITS/0.01ML SC SCH (20:45)
[2020-06-23] VITALS: BP 120/62
[2020-06-23] MEDS: NS 1,000 ML IV SCH ×3 (01:55→15:51)
[2020-06-23] MEDS: ACETAMINOPHEN TAB 650MG DOSE (2X325MG) PO PRN ×3 (02:14→21:14)
[2020-06-23] MEDS: VANCOMYCIN HCL 1,000 MG, VIAL MATE ADAPTER 1 EACH in D5W 250 ML IV SCH ×3 (03:37→19:26)
[2020-06-23 04:00] VITALS: BP 118/59
[2020-06-23 05:31] LABS: HEMATOCRIT 37.8 % (42.0-52.0); MEAN CORPUSCULAR HEMOGLOBIN 25.8 pg (27.0-33.0); MEAN CORPUSCULAR HGB CONC 31.7 g/dl (32.0-36.5); MEAN CORPUSCULAR VOLUME 81.3 fl (80.0-96.0); PLATELET COUNT, AUTOMATED 279 10^3/uL (150-450); RED BLOOD COUNT 4.65 10^6/uL (4.30-6.10); WHITE BLOOD COUNT 9.2 10^3/uL (4.0-10.0)
[2020-06-23 06:03] LABS: BLOOD UREA NITROGEN 23 MG/DL (7-18); CALCIUM LEVEL 8.1 MG/DL (8.5-10.1); CARBON DIOXIDE LEVEL 22 MEQ/L (21-32); CHLORIDE LEVEL 103 MEQ/L (98-107); CREATININE FOR GFR 1.22 MG/DL (0.70-1.30); GLOMERULAR FILTRATION RATE > 60.0 (>60); GLUCOSE, FASTING 253 MG/DL (70-100); MAGNESIUM LEVEL 1.9 MG/DL (1.8-2.4); POTASSIUM SERUM 4.2 MEQ/L (3.5-5.1); SODIUM LEVEL 133 MEQ/L (136-145)
[2020-06-23] MEDS: AZTREONAM 2 GM in D5W MINI-BAG PLUS 50 ML IV SCH ×3 (06:06→23:24)
[2020-06-23] MEDS: HEPARIN SOD (PORCINE) 5000UNITS/ML 1ML VIAL/SYRINGE SC SCH ×3 (06:06→21:13)
[2020-06-23 06:49] LABS: EOSINOPHILS 3 % (0-3); LYMPHOCYTES 6 % (16-44); MONOCYTES 2 % (0-5); NEUTROPHILS 81 % (28-66); PLATELET ESTIMATE NORMAL (NORMAL)
[2020-06-23 06:50] LABS: ANISOCYTOSIS 1+
[2020-06-23 07:28] VITALS: BP 138/75
--- NOTE | 2020-06-23 08:14 | IPNPDOC ---
Text Note Date of Service The patient was seen on 06/23/20. NOTE Subjective: Patient seen and examined at bedside. Fevers improving. Feeling better, no new medical complaints. No acute overnight events reported. Objective: General: NAD, lying comfortably in bed HEENT: NC/AT, EOMI, PERRL, poor dentition Lungs: CTA B/L Heart: +S1S2, systolic murmur, tachy Abd: soft, NT, +BS, obese Ext: LLE bandages in place Assessment and Plan: 35 yo male for left send toe osteomyelitis s/p amputation, with PMHx of IDDM, previous left hallux amputation, complicated with fevers/tachycardia. #tachycardia - likely secondary to drug fever - possible brief episode of atrial flutter - echocardiogram pending - continue telemetry monitoring - TSH WNL #fevers - improving - likely drug fevers - allergy to PCN and meropenem - was transitioned to aztreonam this morning - ID c/s pending #elevated creatinine - improving with fluids - trial off fluids today #LLE osteomyelitis - sent by Dr. Timmons to the ER for worsening left foot infection - Wound culture 06/13: Staph aureus and Pseudomonas resistant to Levaquin - s/p amputation - Dr. Cameron of podiatry - BCx negative to date - #drug allergies - ID c/s pending #IDDM2 - Will start ISS - c/w Reduced dose of long acting insulin #HTN - BP well controlled - c/w home meds #DLP - c/w Atorvastatin #Hx of Osteomyelitis of the Left 1st toe - s/p amputation 10/2019 #DVT prophylaxis VS,Fishbone, I+O VS, Fishbone, I+O Laboratory Tests 06/23/20 05:07 Vital Signs Date Time Temp Pulse Resp B/P (MAP) Pulse Ox O2 Delivery O2 Flow Rate FiO2 06/23/20 07:28 97.9 125 20 138/75 (96) 98 Room Air I&O- Last 24 Hours up to 6 AM 06/23/20 06:00 Intake Total 5008 ml Output Total 1925 ml Balance 3083 ml TYLER RIZO MD Jun 23, 2020 08:14
[2020-06-23] MEDS: ramipriL 1.25 MG CAP PO SCH (08:37)
[2020-06-23] MEDS: ATORVASTATIN 20 MG TAB PO SCH (08:43)
[2020-06-23] MEDS ORDERED: INFLUENZA QUADRIVALENT PF VACCINE 0.5ML SYRINGE IM ONE ×2 (08:45→09:00)
[2020-06-23] MEDS: HumaLOG INSULIN (NovoLOG) PER UNIT SC SCH ×4 (08:45→21:13)
[2020-06-23 09:40] LABS: VANCOMYCIN RANDOM 24.3 UG/ML
[2020-06-23 11:44] VITALS: BP 140/79
[2020-06-23] MEDS ORDERED: VANCOMYCIN HCL 750 MG, VIAL MATE ADAPTER 1 EACH in D5W 250 ML IV ONE (14:00)
[2020-06-23 16:00] VITALS: BP 158/82
[2020-06-23] MEDS ORDERED: SLF 3 ML SYR IV PRN (16:15)
[2020-06-23] MEDS: NYSTATIN 500,000 U/5 ML SUSP UDC SS SCH ×2 (17:11→23:24)
[2020-06-23 20:00] VITALS: BP 131/71
[2020-06-23] MEDS: LEVEMIR (INSULIN DETEMIR) 1 UNITS/0.01ML SC SCH (21:14)
[2020-06-23] MEDS: SLF 3 ML SYR IV SCH (21:14)
[2020-06-24] VITALS: BP 123/71
[2020-06-24] MEDS: VANCOMYCIN HCL 1,000 MG, VIAL MATE ADAPTER 1 EACH in D5W 250 ML IV SCH ×4 (03:42→21:37)
[2020-06-24 04:00] VITALS: BP 140/79
[2020-06-24 05:37] LABS: EOS # 0.3 10^3/uL (0.0-0.5); HEMATOCRIT 37.9 % (42.0-52.0); LYMPH # 0.8 10^3/uL (1.5-5.0); LYMPH % 14.9 % (24.0-44.0); MEAN CORPUSCULAR HEMOGLOBIN 25.9 pg (27.0-33.0); MEAN CORPUSCULAR HGB CONC 31.7 g/dl (32.0-36.5); MEAN CORPUSCULAR VOLUME 81.9 fl (80.0-96.0); MONO # 0.3 10^3/uL (0.0-0.8); NEUTROPHILS # 3.9 10^3/uL (1.5-8.5); NEUTROPHILS % 74.7 % (36.0-66.0); PLATELET COUNT, AUTOMATED 265 10^3/uL (150-450); RED BLOOD COUNT 4.63 10^6/uL (4.30-6.10); WHITE BLOOD COUNT 5.2 10^3/uL (4.0-10.0)
[2020-06-24 05:54] LABS: BLOOD UREA NITROGEN 11 MG/DL (7-18); CALCIUM LEVEL 8.7 MG/DL (8.5-10.1); CARBON DIOXIDE LEVEL 25 MEQ/L (21-32); CHLORIDE LEVEL 106 MEQ/L (98-107); CREATININE FOR GFR 0.78 MG/DL (0.70-1.30); GLOMERULAR FILTRATION RATE > 60.0 (>60); GLUCOSE, FASTING 234 MG/DL (70-100); MAGNESIUM LEVEL 1.7 MG/DL (1.8-2.4); POTASSIUM SERUM 4.4 MEQ/L (3.5-5.1); SODIUM LEVEL 137 MEQ/L (136-145)
[2020-06-24] MEDS: HEPARIN SOD (PORCINE) 5000UNITS/ML 1ML VIAL/SYRINGE SC SCH ×3 (06:10→21:37)
[2020-06-24] MEDS: AZTREONAM 2 GM in D5W MINI-BAG PLUS 50 ML IV SCH ×2 (06:10→14:55)
[2020-06-24] MEDS: NYSTATIN 500,000 U/5 ML SUSP UDC SS SCH ×3 (06:10→17:48)
[2020-06-24] MEDS: SLF 3 ML SYR IV SCH ×3 (06:10→21:37)
[2020-06-24 07:34] VITALS: BP 143/90
[2020-06-24] MEDS: ATORVASTATIN 20 MG TAB PO SCH (08:16)
[2020-06-24] MEDS: HumaLOG INSULIN (NovoLOG) PER UNIT SC SCH ×4 (08:16→20:31)
[2020-06-24] MEDS: ramipriL 1.25 MG CAP PO SCH (08:17)
--- NOTE | 2020-06-24 09:29 | ECGEPIP ---
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 LA conduction disturbance? Low voltages; body habitus versus pulmonary disease Nonspecific T wave flattening. Slower rate but otherwise no significant change from 06/22/20 Electronically Signed on 06-24-2020 9:29:38 EST by Gus Galvez
[2020-06-24 12:00] VITALS: BP 168/93
[2020-06-24 15:59] VITALS: BP 132/78
--- NOTE | 2020-06-24 17:55 | IPNPDOC ---
Subjective Date Seen The patient was seen on 06/24/20. Subjective Chief Complaint/HPI Mr. Aguirre is a 35 year old male with DM here with osteomyelitis s/p left 2nd toe and metatarsal bone amputation on 06/21/2020. Overnight, he had a fever of 100.4 and tachycardia of 112. Otherwise, this morning, denies any chest pain, dyspnea, abdominal pain, or dysuria. Objective Physical Examination General Exam: Positive: Alert, Cooperative Eye Exam: Positive: EOMI; Negative: Sclera icteric ENT Exam: Positive: Atraumatic Neck Exam: Positive: Supple Chest Exam: Positive: Clear to auscultation; Negative: Rales, Rhonchi, Wheezing Heart Exam: Positive: Tachycardic, Regular Rhythm Abdomen Exam: Positive: Normal bowel sounds, Soft; Negative: Tenderness Extremity Exam: Positive: Other (Left foot wrapped up) Neuro Exam: Positive: Cranial Nerves 3-12 NL Psych Exam: Positive: Mental status NL, Mood NL Assessment /Plan Assessment Mr. Aguirre is a 35 year old male with DM here with osteomyelitis s/p left 2nd toe and metatarsal bone amputation on 06/21/2020. While here, he continues to have fever and tachycardia. ID was consulted, recommendations appreciated. He has allergies to PCN, cefepime, and meropenem. Cultures grew enterococcus sensitive to vancomycin. Anaerobic cultures pending. Currently on Vancomycin and Aztreonam. Plan/VTE VTE Prophylaxis Ordered?: Yes Plan 1. LLE osteomyelitis -s/p left 2nd toe and metatarsal bone amputation on 06/21/2020 -Cultures grew enterococcus, anaerobic cultures pending -Allergies to PCN, cefepime, and meropenem -On Vancomycin IV and aztreonam -ID consulted. Recommendations appreciated -Podiatry consulted. Recommendations appreciated 2. Tachycardia an dfevers =Secondary to drug fevers -ID consulted, recommendations appreciated 3. IDDM -Continue sliding scale insulin -Increase Levemir from 30u qHS to 35u qHS 4. HTN -Continue Ramipril 5. Dyslipidemia -Continue atorvastatin 6. DVT ppx -SCD and TEDs VS, I&O, 24H, Fishbone Vital Signs/I&O Vital Signs Date Time Temp Pulse Resp B/P (MAP) Pulse Ox O2 Delivery O2 Flow Rate FiO2 06/24/20 15:59 97.6 102 18 132/78 (96) 94 Room Air I&O- Last 24 Hours up to 6 AM 06/24/20 06:00 Intake Total 5115 ml Output Total 4500 ml Balance 615 ml Laboratory Data 24H LABS Laboratory Tests 2 06/23/20 20:36: Bedside Glucose (Misc Panel) 281H 06/24/20 05:06: Immature Granulocyte % (Auto) 0.4, Neutrophils (%) (Auto) 74.7H, Lymphocytes (%) (Auto) 14.9L, Monocytes (%) (Auto) 5.0, Eosinophils (%) (Auto) 5.0H, Basophils (%) (Auto) 0.0, Neutrophils # (Auto) 3.9, Lymphocytes # (Auto) 0.8L, Monocytes # (Auto) 0.3, Eosinophils # (Auto) 0.3, Basophils # (Auto) 0.0, Nucleated Red Blood Cells % (auto) 0.0, Anion Gap 6L, Glomerular Filtration Rate > 60.0, Calcium Level 8.7, Magnesium Level 1.7L 06/24/20 11:03: Vancomycin Level Trough 8.2L 06/24/20 11:35: Bedside Glucose (Misc Panel) 224H 06/24/20 16:31: Bedside Glucose (Misc Panel) 381H CBC/BMP Laboratory Tests 06/24/20 05:06 Microbiology Microbiology 06/21/20 Gram Stain - Final, Resulted 06/21/20 Wound Culture - Preliminary, Resulted Enterococcus Faecalis 06/21/20 Anaerobic Culture, Resulted Pending 06/21/20 Blood Culture - Preliminary, Resulted No Growth after 72 hours. All specime... 06/21/20 Blood Culture - Preliminary, Resulted No Growth after 72 hours. All specime... DANETTE CALLE DO Jun 24, 2020 17:55
[2020-06-24 20:00] VITALS: BP 133/83
[2020-06-24] MEDS ORDERED: LEVEMIR (INSULIN DETEMIR) 1 UNITS/0.01ML SC SCH (21:00)
[2020-06-25] VITALS: BP 129/70
[2020-06-25] MEDS: NYSTATIN 500,000 U/5 ML SUSP UDC SS SCH ×5 (00:17→23:48)
[2020-06-25] MEDS: AZTREONAM 2 GM in D5W MINI-BAG PLUS 50 ML IV SCH ×3 (00:17→14:33)
[2020-06-25] MEDS: VANCOMYCIN HCL 1,000 MG, VIAL MATE ADAPTER 1 EACH in D5W 250 ML IV SCH ×4 (03:39→13:26)
[2020-06-25 04:00] VITALS: BP 153/84
[2020-06-25 04:47] LABS: BASO % 0.2 % (0.0-1.0); EOS # 0.3 10^3/uL (0.0-0.5); EOS % 6.9 % (0.0-3.0); HEMATOCRIT 39.1 % (42.0-52.0); HEMOGLOBIN 12.2 g/dl (13.5-17.5); LYMPH # 0.9 10^3/uL (1.5-5.0); LYMPH % 20.9 % (24.0-44.0); MEAN CORPUSCULAR HEMOGLOBIN 25.5 pg (27.0-33.0); MEAN CORPUSCULAR HGB CONC 31.2 g/dl (32.0-36.5); MEAN CORPUSCULAR VOLUME 81.6 fl (80.0-96.0); MONO # 0.3 10^3/uL (0.0-0.8); MONO % 6.9 % (0.0-5.0); NEUTROPHILS # 2.7 10^3/uL (1.5-8.5); NEUTROPHILS % 64.9 % (36.0-66.0); PLATELET COUNT, AUTOMATED 289 10^3/uL (150-450); RED BLOOD COUNT 4.79 10^6/uL (4.30-6.10); WHITE BLOOD COUNT 4.2 10^3/uL (4.0-10.0)
[2020-06-25] MEDS: HEPARIN SOD (PORCINE) 5000UNITS/ML 1ML VIAL/SYRINGE SC SCH ×3 (05:08→21:12)
[2020-06-25] MEDS: SLF 3 ML SYR IV SCH ×3 (05:08→21:12)
[2020-06-25 05:11] LABS: BLOOD UREA NITROGEN 10 MG/DL (7-18); CALCIUM LEVEL 8.6 MG/DL (8.5-10.1); CARBON DIOXIDE LEVEL 27 MEQ/L (21-32); CHLORIDE LEVEL 103 MEQ/L (98-107); CREATININE FOR GFR 0.81 MG/DL (0.70-1.30); GLOMERULAR FILTRATION RATE > 60.0 (>60); GLUCOSE, FASTING 253 MG/DL (70-100); MAGNESIUM LEVEL 1.6 MG/DL (1.8-2.4); POTASSIUM SERUM 4.3 MEQ/L (3.5-5.1); SODIUM LEVEL 135 MEQ/L (136-145)
[2020-06-25 08:00] VITALS: BP 132/79
[2020-06-25] MEDS: HumaLOG INSULIN (NovoLOG) PER UNIT SC SCH ×4 (08:50→21:12)
[2020-06-25] MEDS: ATORVASTATIN 20 MG TAB PO SCH (08:51)
[2020-06-25] MEDS: ramipriL 1.25 MG CAP PO SCH (08:51)
[2020-06-25 16:00] VITALS: BP 119/63
--- NOTE | 2020-06-25 16:41 | IPNPDOC ---
Subjective Date Seen The patient was seen on 06/25/20. Subjective Chief Complaint/HPI Mr. Aguirre is a 35 year old male with DM here with osteomyelitis s/p left 2nd toe and metatarsal bone amputation on 06/21/2020. He has been afebrile for more than 24 hours. Still mildly tachycardic. Otherwise, this morning, denies any chest pain, dyspnea, abdominal pain, or dysuria. Objective Physical Examination General Exam: Positive: Alert, Cooperative Eye Exam: Positive: EOMI; Negative: Sclera icteric ENT Exam: Positive: Atraumatic Neck Exam: Positive: Supple Chest Exam: Positive: Clear to auscultation; Negative: Rales, Rhonchi, Wheezing Heart Exam: Positive: Tachycardic, Regular Rhythm Abdomen Exam: Positive: Normal bowel sounds, Soft; Negative: Tenderness Extremity Exam: Positive: Other (Left foot wrapped up) Neuro Exam: Positive: Cranial Nerves 3-12 NL Psych Exam: Positive: Mental status NL, Mood NL Assessment /Plan Assessment Mr. Aguirre is a 35 year old male with DM here with osteomyelitis s/p left 2nd toe and metatarsal bone amputation on 06/21/2020. While here, he continues to have fever and tachycardia. ID was consulted, recommendations appreciated. He has allergies to PCN, cefepime, and meropenem. Cultures grew enterococcus sen sitive to vancomycin and pseudomonas that had intermediate resistance to aztreonam. Today, ID switched patient from Aztreonam to Tobramycin. Anaerobic cultures pending. Currently on Vancomycin and Tobramycin Plan/VTE VTE Prophylaxis Ordered?: Yes Plan 1. LLE osteomyelitis -s/p left 2nd toe and metatarsal bone amputation on 06/21/2020 -Cultures grew enterococcus and pseudomonas, anaerobic cultures pending -Allergies to PCN, cefepime, and meropenem -On Vancomycin IV. Given a dose of Tobramycin -ID consulted. Recommendations appreciated -Podiatry consulted. Recommendations appreciated 2. Tachycardia an dfevers -Secondary to drug fevers -ID consulted, recommendations appreciated 3. IDDM -Continue sliding scale insulin -Increase Levemir from 35u qHS to 40u qHS -If day time glucose continues to be elevated, may need to start a morning Levemir dose as well. 4. HTN -Continue Ramipril 5. Dyslipidemia -Continue atorvastatin 6. DVT ppx -SCD and TEDs VS, [facility]O Vital Signs Date Time Temp Pulse Resp B/P (MAP) Pulse Ox O2 Delivery O2 Flow Rate FiO2 06/25/20 08:51 132/79 06/25/20 08:00 97.4 104 16 95 Room Air I&O- Last 24 Hours up to 6 AM 06/25/20 06:00 Intake Total 1040 ml Output Total 4650 ml Balance -3610 ml Laboratory Data 24H LABS Laboratory Tests 2 06/24/20 19:42: Bedside Glucose (Misc Panel) 288H 06/25/20 04:26: Immature Granulocyte % (Auto) 0.2, Neutrophils (%) (Auto) 64.9, Lymphocytes (%) (Auto) 20.9L, Monocytes (%) (Auto) 6.9H, Eosinophils (%) (Auto) 6.9H, Basophils (%) (Auto) 0.2, Neutrophils # (Auto) 2.7, Lymphocytes # (Auto) 0.9L, Monocytes # (Auto) 0.3, Eosinophils # (Auto) 0.3, Basophils # (Auto) 0.0, Nucleated Red Blood Cells % (auto) 0.0, Anion Gap 5L, Glomerular Filtration Rate > 60.0, C alcium Level 8.6, Magnesium Level 1.6L 06/25/20 12:11: Bedside Glucose (Misc Panel) 278H 06/25/20 16:11: Bedside Glucose (Misc Panel) 334H CBC/BMP Laboratory Tests 06/25/20 04:26 Microbiology Microbiology 06/21/20 Gram Stain - Final, Resulted 06/21/20 Wound Culture - Final, Resulted Enterococcus Faecalis Pseudomonas Aeruginosa 06/21/20 Anaerobic Culture, Resulted Pending 06/21/20 Blood Culture - Preliminary, Resulted No Growth after 72 hours. All specime... 06/21/20 Blood Culture - Preliminary, Resulted No Growth after 72 hours. All specime... DANETTE CALLE DO Jun 25, 2020 16:41
[2020-06-25] MEDS ORDERED: TOBRAMYCIN SULF IV ONE (17:00)
[2020-06-25] MEDS ORDERED: D5W IV ONE (17:00)
[2020-06-25] MEDS: MAG SULF 1GM/100ML (MAG RUN) 1 GM in IV 1 EA IV SCH ×2 (17:05→18:11)
[2020-06-25 20:00] VITALS: BP 143/69
[2020-06-25] MEDS: LEVEMIR (INSULIN DETEMIR) 1 UNITS/0.01ML SC SCH (21:11)
[2020-06-25] MEDS: LINEZOLID 600MG TABLET (ZYVOX) PO SCH (22:58)
[2020-06-26] VITALS: BP 122/72
[2020-06-26 04:00] VITALS: BP 121/85
[2020-06-26 05:20] LABS: BASO % 0.5 % (0.0-1.0); EOS # 0.3 10^3/uL (0.0-0.5); EOS % 6.8 % (0.0-3.0); HEMATOCRIT 40.7 % (42.0-52.0); HEMOGLOBIN 12.8 g/dl (13.5-17.5); LYMPH # 1.1 10^3/uL (1.5-5.0); LYMPH % 29.2 % (24.0-44.0); MEAN CORPUSCULAR HEMOGLOBIN 25.4 pg (27.0-33.0); MEAN CORPUSCULAR HGB CONC 31.4 g/dl (32.0-36.5); MEAN CORPUSCULAR VOLUME 80.9 fl (80.0-96.0); MONO # 0.2 10^3/uL (0.0-0.8); MONO % 6.3 % (0.0-5.0); NEUTROPHILS # 2.2 10^3/uL (1.5-8.5); NEUTROPHILS % 56.7 % (36.0-66.0); PLATELET COUNT, AUTOMATED 318 10^3/uL (150-450); RED BLOOD COUNT 5.03 10^6/uL (4.30-6.10); WHITE BLOOD COUNT 3.8 10^3/uL (4.0-10.0)
[2020-06-26] MEDS: NYSTATIN 500,000 U/5 ML SUSP UDC SS SCH ×3 (05:30→17:49)
[2020-06-26] MEDS: HEPARIN SOD (PORCINE) 5000UNITS/ML 1ML VIAL/SYRINGE SC SCH ×3 (05:30→20:58)
[2020-06-26] MEDS: SLF 3 ML SYR IV SCH ×3 (05:30→20:59)
[2020-06-26 05:36] LABS: HEMOGLOBIN A1c 8.4 %
[2020-06-26 05:49] LABS: BLOOD UREA NITROGEN 15 MG/DL (7-18); CALCIUM LEVEL 8.9 MG/DL (8.5-10.1); CARBON DIOXIDE LEVEL 26 MEQ/L (21-32); CHLORIDE LEVEL 102 MEQ/L (98-107); CREATININE FOR GFR 0.83 MG/DL (0.70-1.30); GLOMERULAR FILTRATION RATE > 60.0 (>60); GLUCOSE, FASTING 307 MG/DL (70-100); MAGNESIUM LEVEL 1.7 MG/DL (1.8-2.4); POTASSIUM SERUM 4.5 MEQ/L (3.5-5.1); SODIUM LEVEL 135 MEQ/L (136-145)
[2020-06-26] MEDS: MAG SULF 1GM/100ML (MAG RUN) 1 GM in IV 1 EA IV SCH ×2 (06:47→08:04)
--- NOTE | 2020-06-26 07:57 | ECHO ---
DATE OF PROCEDURE: 06/22/2020 Age: 35 Gender: Male REFERRING PHYSICIAN: Dr. Dante Dean REASON FOR THE STUDY: Sepsis MEASUREMENTS: 2D measurements: IVS 2.3 cm LV 3.0 cm LVPW 2.3 cm LA 3.7 cm Aorta 3.6 cm IVC 2.0 cm DOPPLER MEASUREMENTS: Peak velocity across the aortic valve 1.6 meters per second Peak velocity across the LVOT 1.5 meters per second Mitral E 0.87, mitral A 0.78 with a ratio of 1.1 Maximum tricuspid jet velocity 1.9 meters per second 2D COMMENTS: 1. Normal left ventricular size with moderately increased left ventricular wall thickness. The left ventricle is hyperdynamic with an estimated global left ventricular systolic ejection fraction of 70 to 75%. 2. Normal left atrium, normal right and right ventricle. 3. The atrial septum appears to be normal without evidence of defect or shunt. 4. Normal aortic root. 5. A small pericardial effusion was noted around the heart. No evidence of cardiac tamponade. 6. The aortic valve, mitral valve, tricuspid valve and pulmonic valve appear to be normal. The proximal pulmonary artery branches also appear to be normal in size in limited views. 7. The inferior vena cava is mildly enlarged. Central venous pressure might be elevated. DOPPLER: Only trace tricuspid regurgitation detected. The calculated pulmonary artery systolic pressure was normal. IMPRESSION: 1. Normal global left ventricular systolic function with moderate concentric left ventricular hypertrophy and a hyperdynamic left ventricle. Assessment of the left ventricular diastolic function appears to be normal. 2. Trace tricuspid regurgitation with a normal calculated pulmonary artery systolic pressure. 3. A small pericardial effusion was noted. No evidence of cardiac tamponade. 4. There were some findings that may be associated with elevated central venous pressure. The inferior vena cava was mildly enlarged. MTDD
[2020-06-26 08:00] VITALS: BP 160/104
[2020-06-26] MEDS: HumaLOG INSULIN (NovoLOG) PER UNIT SC SCH ×4 (08:06→20:59)
[2020-06-26] MEDS: ATORVASTATIN 20 MG TAB PO SCH (08:06)
[2020-06-26] MEDS: LINEZOLID 600MG TABLET (ZYVOX) PO SCH ×2 (08:07→20:59)
--- NOTE | 2020-06-26 08:17 | CR ---
DATE OF CONSULTATION: 06/22/2020 Asked to consult by Dr. Dean for evaluation of diabetic foot ulcer with culture positive for methicillin-sensitive Staphylococcus aureus (MSSA) and pseudomonas. HISTORY OF PRESENT ILLNESS: The patient is a 35-year-old gentleman who presented to the emergency room from the wound clinic with worsening left foot infection. He follows up regularly at the wound clinic and has had multiple debridements, but he was told last week by Dr. Timmons that his 2nd toe needed amputation. Patient had a 1st toe amputation of the left big toe in [place] [address] Cameron. He developed a right Charcot foot about a month ago and has been in an offloading boot. He had a fever about a week prior to admission that lasted for a couple of days but then resolved spontaneously. When he came to our emergency room, he did not have a fever until he received antibiotics. He was seen in consultation with Dr. Cameron, who took him to the operating room for ray amputation of the 2nd toe. Postoperatively he had fevers up to 103 after he received intravenous (IV) cefepime. Of note, the patient has had high fevers after last admission in August 2019 with fevers up to 105. MEDICAL HISTORY: Significant for: 1. Insulin-dependent diabetes. 2. Hypertension. 3. Hyperlipidemia. 4. History of tobacco abuse. Patient quit 3 months ago after the of his son. 5. History of noncompliance. 6. Multiple tattoos. SURGICAL HISTORY: 1. Appendectomy. 2. Left hallux amputation September 2019. 3. Left 2nd toe amputation 06/21/2020. Foot MRI consistent with 2nd toe and metatarsal osteomyelitis. Wound culture from June 21 grew Staphylococcus aureus and pseudomonas that was resistant to Levaquin. The patient had been on levofloxacin for about 2 weeks prior to admission. LABORATORY DATA: White count was 6.6, hemoglobin 13.6, hematocrit 43.8, platelets 330, 94% neutrophils, 4% lymphocytes, 2% monocytes, ESR 37. Sodium 135, potassium 4.5, chloride 103, bicarbonate 23, BUN 29, creatinine 1.54, glucose 295, calcium 8.4, magnesium 1.8 CPK 87. TSH 1.19. CRP 0.66. Blood cultures, two sets, are no growth after 24 hours. Wound Gram stain, shows many white cells, many gram-positive cocci in pairs, chains, and clusters. Cultures are pending. IMAGING: Foot MRI showed acute septic arthritis of the 2nd metatarsophalangeal joint with associated osteomyelitis of the metatarsal and proximal phalanx. PHYSICAL EXAMINATION: GENERAL: A pleasant gentleman in mild discomfort from his fevers. VITAL SIGNS: Temperature is 101.8, respirations 18, blood pressure 103/53, oxygen saturation 92% on room air. HEART: Normal S1, S2. No murmurs, rubs, or gallops. Tachycardic. LUNGS: Clear. No wheezes, rales, or rhonchi. ABDOMEN: Soft, nontender. No hepatosplenomegaly. BACK: No costovertebral angle (CVA) tenderness. EXTREMITIES: Multiple scars on his upper thighs. Right lower extremity has a Charcot deformity with a bulge on the plantar aspect of the foot around the 4th and 5th met, which is tender to touch but nor redness, no open ulcers. Left foot has an amputation of the left hallux. Second toe amputation was done yesterday with sutures in place. A small ulcer measuring 1 cm x 1 cm on the plantar aspect of the foot at the 2nd metatarsal. The 3rd, 4th, and 5th toe are intact without ulceration. Long nails that need to be cut. IMPRESSION: This is a 35-year-old gentleman with a history of acute osteomyelitis of the 2nd toe with evidence of a septic arthritis of the joint. Underwent surgery yesterday with Dr. Cameron. Amputation of 2nd toe. The wound looks great. There is no much surrounding cellulitis. He is currently on intravenous (IV) aztreonam and vancomycin. The patient had developed very high fevers with meropenem and Zosyn last admission, and he has developed a fever with cefepime. At this point, I would not use any penicillins, carbapenems, or cephalosporins, as he definitely has a drug fever related to those medications. Agree with switch to aztreonam and vancomycin to cover for pseudomonas and methicillin-sensitive Staphylococcus aureus (MSSA). PLAN: Continue aztreonam 2 grams IV every 8 hours. Continue vancomycin 1 gram IV every 8 hours. Tylenol as needed for fever. Due to his bump in creatinine from 1.3 to 1.5, I would avoid ibuprofen until his kidney function improves. Probably the patient will need about 5-7 days of IV antibiotics. His vancomycin could be switched to oral linezolid, but we do not have options for his pseudomonas coverage, if indeed this is what grows on his culture. Will wait for results of wound culture and decide on antibiotic management early next week. DIOMEDES
[2020-06-26] MEDS: ramipriL 1.25 MG CAP PO SCH (08:45)
--- NOTE | 2020-06-26 09:12 | IPN ---
DATE: 06/22/2020 SUBJECTIVE: Patient seen and examined. Overnight no events noted. He is positive for fever and chills. He states his foot feels okay, some soreness, but not significant pain. PHYSICAL EXAMINATION: Vitals are reviewed. T-max 102.4, current temperature 101.8. Lower extremity examination; sutures are intact. There is some edema and ecchymosis around the surgical site. No significant streaky erythema or purulence noted. LABORATORY DATA: Revealed white blood cell count 6.6, hemoglobin 13.6. Creatinine 1.54. ASSESSMENT: This is a 35-year-old diabetic male with osteomyelitis; status post left second toe and metatarsal amputation. PLAN: Fevers appear antibiotic related. Infectious disease has been consulted. Will defer the recommendations for antibiotic coverage for now. Daily dressing changes to foot, keep elevated. Will follow. MTDD
--- NOTE | 2020-06-26 09:16 | IPN ---
DATE: 06/25/2020 SUBJECTIVE: Patient seen and examined, states he is feeling much better. He has remained afebrile for the last 48 hours. PHYSICAL EXAMINATION: Lower extremity examination: Incision well-coapted, no surrounding erythema and edema is reduced. LABORATORY DATA: Reviewed. White blood cell count 4.2. ASSESSMENT: This is a 35-year-old diabetic male status post left second toe and ray amputation. PLAN: Patient will be discharged once the stable per ID and Hospitalist. He should have follow up with myself and Dr. Timmons as an outpatient. DIOMEDES
[2020-06-26] MEDS ORDERED: LINE1TAB6 PO (10:23)
[2020-06-26 12:00] VITALS: BP 154/76
[2020-06-26] MEDS ORDERED: LIDOCAINE 1% MDV 20ML VIAL As Ordered ONE (12:13)
[2020-06-26] MEDS ORDERED: TOBRAMYCIN SULF IV SCH (14:00)
[2020-06-26] MEDS ORDERED: D5W IV SCH (14:00)
--- NOTE | 2020-06-26 14:38 | IPN ---
DATE: 06/25/2020 The patient seems to be doing much better. His fever has finally resolved on June 24. He has been afebrile for 2 days. He has had no chills. No nausea, vomiting, or diarrhea. His appetite is good. His sugars have remained elevated between 278-381. His insulin dose was increased to 40 units subcutaneous every night. Culture of the left foot from intraoperatively had Enterococcus (E) faecalis sensitive to penicillin, moderate growth and pseudomonas resistant to quinolones, sensitive to tobramycin and intermediate to aztreonam. The patient remained on vancomycin and aztreonam. PHYSICAL EXAMINATION: VITAL SIGNS: Temperature is 98.5, pulse 101, respirations 18, blood pressure 119/63, oxygen saturation 94% on room air. HEART: Normal S1, S2, tachycardic. No murmurs, rubs, or gallops. LUNGS: Clear. No wheezes, rhonchi, or rales. ABDOMEN: Soft, nontender. No hepatosplenomegaly. EXTREMITIES: Left Charcot foot deformity in off-loading boot, left 1st toe amputation and 2nd toe amputation with sutures along the 2nd toe, dorsal aspect of the foot. There is a small ulcer measuring about 0.5 x 1 cm overlying the 2nd metatarsal. No purulent discharge noted. There is no surrounding cellulitis or tenderness. IMPRESSION: 1. Osteomyelitis of the 2nd metatarsal involving the metatarsophalangeal joint, status post ray amputation. Case has been discussed with Dr. Cameron, who feels like he has resected most of the infected bone. There is no abscess noted on MRI and no cellulitis. Unfortunately, his pseudomonas is intermediate to aztreonam, and therefore he will receive tobramycin tonight. There is moderate growth of Enterococcus faecalis. Patient could be treated with linezolid. Previous cultures of 06/13 on the left foot had methicillin-sensitive Staphylococcus aureus (MSSA) and pseudomonas, and culture from 03/23 had E. faecalis, pseudomonas, and Streptococcus group G. 2. Insulin-dependent diabetes, moderately controlled. Sugars still are elevated. Will obtain HbA1c. PLAN: Discontinue IV aztreonam. Switch to tobramycin 300 mg IV. Probably his dose should be every 12 hours, as we dose him at 5 mg/kg, or he can have received one single dosing. I am a little reluctant about discharging him home without a short course of tobramycin to make sure he does not recur at the wound site. His vancomycin will be discontinued. He will be switched to linezolid 600 mg by mouth twice a day. May consider having him receive high dose of IV tobramycin through the infusion unit at [facility], which will be closer for him and more convenient. MTDD
--- NOTE | 2020-06-26 14:38 | IPNPDOC ---
Subjective Date Seen The patient was seen on 06/26/20. Subjective Chief Complaint/HPI Mr. Aguirre is a 35 year old male with DM here with osteomyelitis s/p left 2nd toe and metatarsal bone amputation on 06/21/2020. He has been afebrile for more than 48 hours. Yesterday, he was switched to IV tobramycin. He will need a 5 day course of Tobramycin which can be done outpatient at [facility]. Otherwise this morning, denies fever/chills, chest pain, dyspnea, abdominal pain, or dysuria. Objective Physical Examination General Exam: Positive: Alert, Cooperative Eye Exam: Positive: EOMI; Negative: Sclera icteric ENT Exam: Positive: Atraumatic Neck Exam: Positive: Supple Chest Exam: Positive: Clear to auscultation; Negative: Rales, Rhonchi, Wheezing Heart Exam: Positive: Tachycardic, Regular Rhythm Abdomen Exam: Positive: Normal bowel sounds, Soft; Negative: Tenderness Extremity Exam: Positive: Other (Left foot wrapped up) Neuro Exam: Positive: Cranial Nerves 3-12 NL Psych Exam: Positive: Mental status NL, Mood NL Assessment /Plan Assessment Mr. Aguirre is a 35 year old male with DM here with osteomyelitis s/p left 2nd toe and metatarsal bone amputation on 06/21/2020. While here, he continues to have fever and tachycardia which may be related to a beta lactam fever. ID was consulted, recommendations appreciated. Cultures grew enterococcus sensitive to linezolid and pseudomonas that had intermediate resistance to aztreonam but sensitive to Tobramycin. Anaerobic cultures pending. Currently on PO linezolid and IV Tobramycin. Can receive IV Tobramycin outpatient. Discuss with caser in/senior program planner about IV Tobramycin at [facility]. Otherwise, we will place midline today Plan/VTE VTE Prophylaxis Ordered?: Yes Plan 1. LLE osteomyelitis -s/p left 2nd toe and metatarsal bone amputation on 06/21/2020 -Cultures grew enterococcus and pseudomonas, anaerobic cultures pending -Allergies to PCN, cefepime, and meropenem -On PO linezolid and IV tobramycin -Will need 5 days of effective antibiotics after procedure. May be able to discontinue linezolid tomorrow -Tobramycin started on 06/26/2020, Last dose on 06/30/2020 -ID consulted. Recommendations appreciated -Podiatry consulted. Recommendations appreciated 2. Tachycardia and fevers -Secondary to drug fevers -ID consulted, recommendations appreciated 3. IDDM -Continue sliding scale insulin -Continue night Levemir at 40u qHS -Adding morning Levemir at 8u qAM. 4. HTN -Continue Ramipril 5. Dyslipidemia -Continue atorvastatin 6. DVT ppx -SCD and TEDs VS, I&O, 24H, Fishbone Vital Signs/I&O Vital Signs Date Time Temp Pulse Resp B/P (MAP) Pulse Ox O2 Delivery O2 Flow Rate FiO2 06/26/20 12:20 98.1 67 21 98 Room Air 06/26/20 12:00 154/76 (102) I&O- Last 24 Hours up to 6 AM 06/26/20 06:00 Intake Total 2350 ml Output Total 4600 ml Balance -2250 ml Laboratory Data 24H LABS Laboratory Tests 2 06/25/20 16:11: Bedside Glucose (Misc Panel) 334H 06/25/20 18:52: Vancomycin Level Trough 14.9 06/25/20 19:52: Bedside Glucose (Misc Panel) 333H 06/25/20 21:02: Bedside Glucose (Misc Panel) 346H 06/26/20 05:03: Immature Granulocyte % (Auto) 0.5, Neutrophils (%) (Auto) 56.7, Lymphocytes (%) (Auto) 29.2, Monocytes (%) (Auto) 6.3H, Eosinophils (%) (Auto) 6.8H, Basophils (%) (Auto) 0.5, Neutrophils # (Auto) 2.2, Lymphocytes # (Auto) 1.1L, Monocytes # (Auto) 0.2, Eosinophils # (Auto) 0.3, Basophils # (Auto) 0.0, Nucleated Red Blood Cells % (auto) 0.0, Anion Gap 7L, Glomerular Filtration Rate > 60.0, Estimated Mean Plasma Glucose 194H, Hemoglobin A1c 8.4, Calcium Level 8.9, Magnesium Level 1.7L, C-Reactive Protein, Quantitative 2.10H 06/26/20 12:17: Bedside Glucose (Misc Panel) 279H CBC/BMP Laboratory Tests 06/26/20 05:03 Microbiology Microbiology 06/21/20 Gram Stain - Final, Resulted 06/21/20 Wound Culture - Final, Resulted Enterococcus Faecalis Pseudomonas Aeruginosa 06/21/20 Anaerobic Culture, Resulted Pending 06/21/20 Blood Culture - Preliminary, Resulted No Growth after 72 hours. All specime... 06/21/20 Blood Culture - Preliminary, Resulted No Growth after 72 hours. All specime... DANETTE CALLE. DO Jun 26, 2020 14:38
[2020-06-26 16:00] VITALS: BP 168/118
--- NOTE | 2020-06-26 16:22 | REP ---
INDICATION: Outpatient antibiotics. COMPARISON: None. TECHNIQUE: The procedure was performed under the direct supervision of Dr. Plaza. The risks and benefits of the procedure were explained to the patient and informed consent obtained. The left basilic vein was localized using ultrasound guidance. The skin was prepped and draped in a sterile fashion. 1% lidocaine was used as a local anesthetic. Using ultrasound guidance the basilic vein was cannulated and a 0.018 guidewire was inserted. The needle was removed and a 4.5 Jordanian dilator and peel-away sheath was inserted over the guidewire. A 4.5 Jordanian single-lumen catheter was left at a length of 16.5 cm. The dilator was removed and the catheter was inserted over the guidewire. The peel-away sheath was removed and the catheter was flushed with heparinized saline as per hospital protocol. The catheter was affixed to the skin and a sterile dressing was applied. The patient tolerated the procedure well and there were no immediate complications. FINDINGS: None IMPRESSION: Technically successful midline catheter insertion the left basilic vein. <Electronically signed by Augie Julio > 06/26/20 1310 <Electronically signed by Hany Plaza > 06/26/20 1612
[2020-06-26] MEDS: SODIUM CHLORIDE 0.9% INJ 10 ML SYR IV SCH (17:50)
[2020-06-26 20:00] VITALS: BP 118/65
[2020-06-26] MEDS: LEVEMIR (INSULIN DETEMIR) 1 UNITS/0.01ML SC SCH (20:58)
[2020-06-27] VITALS: BP 140/84
[2020-06-27] MEDS: NYSTATIN 500,000 U/5 ML SUSP UDC SS SCH ×3 (00:30→12:00)
[2020-06-27 04:00] VITALS: BP 139/86
[2020-06-27] MEDS: SLF 3 ML SYR IV SCH ×2 (05:47→14:00)
[2020-06-27] MEDS: SODIUM CHLORIDE 0.9% INJ 10 ML SYR IV SCH (05:47)
[2020-06-27] MEDS: HEPARIN SOD (PORCINE) 5000UNITS/ML 1ML VIAL/SYRINGE SC SCH ×2 (05:47→14:00)
[2020-06-27 05:59] LABS: BASO % 0.6 % (0.0-1.0); EOS # 0.3 10^3/uL (0.0-0.5); EOS % 6.2 % (0.0-3.0); HEMATOCRIT 43.8 % (42.0-52.0); HEMOGLOBIN 14.2 g/dl (13.5-17.5); LYMPH # 1.5 10^3/uL (1.5-5.0); LYMPH % 29.1 % (24.0-44.0); MEAN CORPUSCULAR HEMOGLOBIN 26.3 pg (27.0-33.0); MEAN CORPUSCULAR HGB CONC 32.4 g/dl (32.0-36.5); MEAN CORPUSCULAR VOLUME 81.3 fl (80.0-96.0); MONO # 0.3 10^3/uL (0.0-0.8); MONO % 6.2 % (0.0-5.0); NEUTROPHILS % 57.1 % (36.0-66.0); PLATELET COUNT, AUTOMATED 357 10^3/uL (150-450); RED BLOOD COUNT 5.39 10^6/uL (4.30-6.10); WHITE BLOOD COUNT 5.2 10^3/uL (4.0-10.0)
[2020-06-27 06:16] LABS: BLOOD UREA NITROGEN 17 MG/DL (7-18); CALCIUM LEVEL 9.6 MG/DL (8.5-10.1); CARBON DIOXIDE LEVEL 25 MEQ/L (21-32); CHLORIDE LEVEL 101 MEQ/L (98-107); CREATININE FOR GFR 0.89 MG/DL (0.70-1.30); GLOMERULAR FILTRATION RATE > 60.0 (>60); GLUCOSE, FASTING 306 MG/DL (70-100); MAGNESIUM LEVEL 1.9 MG/DL (1.8-2.4); POTASSIUM SERUM 4.8 MEQ/L (3.5-5.1); SODIUM LEVEL 133 MEQ/L (136-145)
[2020-06-27 08:00] VITALS: BP 133/90
[2020-06-27] MEDS: HumaLOG INSULIN (NovoLOG) PER UNIT SC SCH ×2 (08:24→12:02)
[2020-06-27 08:25] VITALS: BP 133/90
[2020-06-27] MEDS: ramipriL 1.25 MG CAP PO SCH (08:25)
[2020-06-27] MEDS: ATORVASTATIN 20 MG TAB PO SCH (08:25)
[2020-06-27] MEDS ORDERED: LEVEMIR (INSULIN DETEMIR) 1 UNITS/0.01ML SC SCH (09:00)
[2020-06-27] MEDS: LINEZOLID 600MG TABLET (ZYVOX) PO SCH (10:20)
[2020-06-27] MEDS ORDERED: ACET1TAB55 PO (10:32)
[2020-06-27] MEDS ORDERED: [UNRECOGNIZED DRUG - CODE] IV (10:32)
[2020-06-27] MEDS ORDERED: NYST50SS SS (10:32)
[2020-06-27 12:00] VITALS: BP 128/77
[2020-06-27] MEDS ORDERED: D5W IV SCH (12:00)
[2020-06-27] MEDS ORDERED: TOBRAMYCIN SULF IV SCH (12:00)
[2020-06-27] MEDS: SODIUM CHLORIDE 0.9% INJ 10 ML SYR IV PRN ×2 (12:10→13:23)
--- NOTE | 2020-06-27 20:22 | DS.PDOC ---
Discharge Summary General Date of Admission Jun 21, 2020 at 16:22 Date of Discharge Jun 27, 2020 Attending Physician: DANETTE CALLE DO Specialist/Consultants [facility], Dr. Cameron Infectious disease, Dr. Barr Discharge Summary PROCEDURES PERFORMED DURING STAY: Left 2nd toe and metatarsal bone amputation on 06/21/2020 ADMITTING DIAGNOSES: 1. Left foot cellulitis 2. Insulin-dependent diabetes mellitus type 2 3. Hypertension 4. Dyslipidemia DISCHARGE DIAGNOSES: 1. LLE osteomyelitis with associated septic arthritis 2. Beta-lactam drug fever 3. IDDM2 4. HTN 5. Dyslipidemia COMPLICATIONS/CHIEF COMPLAINT: Diabetic Foot Ulcer. HISTORY OF PRESENT ILLNESS: Mr. Aguirre is a 35-year-old male with insulin- dependent diabetes mellitus type 2, hypertension, dyslipidemia, and history of osteoarthritis of the left first toe who presented to the ER from Dr. Jakub patino's office for worsening left foot infection. Patient reported that last week, he has been having fever and chills. Patient had a wound culture on 06/13/2020 that grew staph aureus and Pseudomonas that is resistant to Levaquin. HOSPITAL COURSE: Podiatry was consulted and performed a left 2nd toe and metatarsal bone amputation on 06/21/2020. ID was consulted due to patient's multiple drug allergies. During the hospitalization, he continued to have fever and tachycardia which may have been a beta-lactam fever. Cultures returned which demonstrated enterococcus faecalis and pseudomonas aeruginosa. Due to the patient's adverse reactions to beta lactams, patient was put on Tobramycin for the pseudomonas and Linezolid for the enterococcus. During his hospitalization, he received 5 day of linezolid. He required about 3 more days of the IV tobramycin. He will do the home transfusion for the tobramycin. Today, he felt well. Denied fever/chills, chest pain, dyspnea, abdominal pain, or dysuria. He was subsequently discharged home DISCHARGE MEDICATIONS: Please see below. ALLERGIES: Please see below. PHYSICAL EXAMINATION ON DISCHARGE: VITAL SIGNS: Please see below. GENERAL: Comfortable, in no apparent distress. HEENT: Head normocephalic/atraumatic, EOMI, sclera clear. NECK: Supple RESPIRATORY: Lungs clear to auscultation bilaterally, no rales, wheeze or rhonchi. CARDIOVASCULAR: Regular rate and rhythm. ABDOMEN: Soft, nontender, no guarding or rebound tenderness. Normal bowel s ounds. MUSCLE SKELETAL: Mild pitting edema NEUROLOGICAL: CN 312 grossly intact, no focal deficits noted. PSYCHOLOGICAL: Normal mood and affect LABORATORY DATA: Please see below. IMAGING: MRI foot 1. Acute septic arthritis of the 2nd metatarsophalangeal joint with associated osteomyelitis of the metatarsal and proximal phalanx, as described above. PROGNOSIS: Stable ACTIVITY: As tolerated. DIET: Carbohydrate consistent diet DISCHARGE PLAN: Home DISPOSITION: 01 Home, Self-Care. DISCHARGE INSTRUCTIONS: 1. Follow-up with your PCP in a week 2. Follow-up with infectious disease, Dr. Barr, in a week 3. Follow-up with podiatry, Dr. Cameron, in a week 4. Follow-up with wound care, Dr. Timmons, in a week DISCHARGE CONDITION: Stable Total time spent on discharge planning, discharge summary, and medication reconciliation: 45 minutes Vital Signs/I&Os Vital Signs Date Time Temp Pulse Resp B/P (MAP) Pulse Ox O2 Delivery O2 Flow Rate FiO2 06/27/20 12:00 97.0 97 20 128/77 (94) 96 Room Air I&O- Last 24 Hours up to 6 AM 06/27/20 06:00 Intake Total 900 ml Output Total 3100 ml Balance -2200 ml Laboratory Data Labs 24H Laboratory Tests 2 06/27/20 05:32: Immature Granulocyte % (Auto) 0.8, Neutrophils (%) (Auto) 57.1, Lymphocytes (%) (Auto) 29.1, Monocytes (%) (Auto) 6.2H, Eosinophils (%) (Auto) 6.2H, Basophils (%) (Auto) 0.6, Neutrophils # (Auto) 3.0, Lymphocytes # (Auto) 1.5, Monocytes # (Auto) 0.3, Eosinophils # (Auto) 0.3, Basophils # (Auto) 0.0, Nucleated Red Blood Cells % (auto) 0.0, Anion Gap 7L, Glomerular Filtration Rate > 60.0, Calcium Level 9.6, Magnesium Level 1.9, Random Tobramycin Level 0.3 06/27/20 11:36: Bedside Glucose (Misc Panel) 299H CBC/BMP Laboratory Tests 06/27/20 05:32 FSBS Laboratory Tests Test 06/27/20 11:36 Range/Units Bedside Glucose (Misc Panel) 299 70-105 MG/DL Microbiology Microbiology 06/21/20 Gram Stain - Final, Complete 06/21/20 Wound Culture - Final, Complete Enterococcus Faecalis Pseudomonas Aeruginosa 06/21/20 Anaerobic Culture - Final, Complete Anaerobic Cocci 06/21/20 Blood Culture - Final, Complete NO GROWTH AFTER 5 DAYS 06/21/20 Blood Culture - Final, Complete NO GROWTH AFTER 5 DAYS Discharge Medications Scheduled Atorvastatin Calcium (Atorvastatin Calcium) 20 Mg Tablet, 20 MG PO DAILY, (Reported) Dapagliflozin Propanediol (Farxiga) 10 Mg Tablet, 5 MG PO DAILY, (Reported) Insulin Glargine,Hum.rec.anlog (Basaglar Kwikpen U-100) 100 Unit/1 Ml Insuln.pen, 44 UNIT SC QHS, (Reported) Insulin Lispro (Humalog Kwikpen U-100) 100 Unit/1 Ml Insuln.pen, 1 DOSE SC AC, (Reported) PER SLIDING SCALE. Linezolid (Linezolid) 600 Mg Tablet, 600 MG PO BID Metformin HCl (Metformin HCl ER) 500 Mg Tab.er.24h, 2,000 MG PO DAILY, (Reported) Nystatin (Nystatin Oral Susp) 100,000 Unit/1 Ml Oral.susp, 5 ML SS Q6H Ramipril (Ramipril) 2.5 Mg Capsule, 2.5 MG PO DAILY, (Reported) Tobramycin Sulfate (Tobramycin Sulfate) 40 Mg/1 Ml Vial, 500 GM IV Q24H Scheduled PRN Acetaminophen (Acetaminophen) 325 Mg Tablet, 650 MG PO Q4H PRN for PAIN OR FEVER Allergies Coded Allergies: Penicillins (Verified Allergy, Intermediate, rash hives, 09/06/19) amoxicillin (Verified Allergy, Intermediate, HIVES, 11/14/19) cefepime (Verified Adverse Reaction, Mild, drug fever, 06/22/20) meropenem (Verified Adverse Reaction, Mild, drug fever, 09/23/19) DANETTE CALLE DO Jun 27, 2020 20:22
--- NOTE | 2020-06-28 09:53 | IPN ---
DATE: 06/26/2020 The patient seems to be doing well. He had a midline placed today. He has tolerated linezolid well without any nausea, vomiting, or abdominal pain. He has received two doses of tobramycin. Today is day #2 without any side effects. The patient is anxious to go home, and he would like to go home with intravenous (IV) antibiotics and not have to take it at the infusion unit at [facility]. PHYSICAL EXAMINATION: HEART: Normal S1, S2. No murmurs, rubs, or gallops. LUNGS: Clear. No wheezes, rhonchi or rales. ABDOMEN: Soft, nontender. No hepatosplenomegaly. BACK: No costovertebral angle (CVA) tenderness. EXTREMITIES: Left foot amputation of 1st and 2nd toe. Second toe has sutures in place. There is a small ulcer on the dorsal aspect of the foot measuring less than 1 cm and no purulent discharge. LABORATORY DATA: White count is 3.8, hemoglobin 12.8, hematocrit 40.7, platelets 318. Sodium 135, potassium 4.5, chloride 102, bicarbonate 26, BUN 15, creatinine 0.83, glucose 207, HbA1c 8.4. Calcium 8.9, magnesium 1.7. CRP 2.1. Wound culture had Enterococcus (E) faecalis and Pseudomonas aeruginosa intermediate to aztreonam, sensitive to tobramycin. IMPRESSION: Acute osteomyelitis of the left foot with a septic metatarsophalangeal joint, status post resection with culture positive for E. faecalis and pseudomonas. The patient had been received IV vancomycin for 4 days and currently on by mouth linezolid for 5 days. He has received IV aztreonam, which was intermediate susceptibility, and therefore he was switched to tobramycin. PLAN: Discharge patient with home with a midline home IV antibiotics, on tobramycin 500 mg daily for 5 days with end of treatment being July 01. This will be a total of 7 days of tobramycin. Finished total linezolid of 5 days. Patient to followup with Dr. Cameron on discharge and Dr. Barr in 1 week. [facility]
== END 2020-06-27 14:44 | disposition home or self-care (01) | DRG 314 ==
LOC: M ED 13:53 → M ED INP 16:22 → ENRESERV 16:39 → M MSPAV 18:49 → M PCU 06-22 01:31
PROVIDERS: ADMIT Internal Medicine; ATTEND Internal Medicine
PROC: 0Y6S0Z0 Detachment at Left 2nd Toe, Complete, Open Approach (ICD-10-PCS; principal; 2020-06-21 16:22)
DX: E11.69 Type 2 diabetes mellitus with other specified complication (principal); M00.9 Pyogenic arthritis, unspecified; M86.172 Other acute osteomyelitis, left ankle and foot; I10 Essential (primary) hypertension; E78.5 Hyperlipidemia, unspecified; Z79.4 Long term (current) use of insulin; Z79.899 Other long term (current) drug therapy; Z88.0 Allergy status to penicillin; Z88.8 Allergy status to other drugs, medicaments and biological substances; R50.81 Fever presenting with conditions classified elsewhere; R00.0 Tachycardia, unspecified; Z87.891 Personal history of nicotine dependence; Z91.19 Patient's noncompliance with other medical treatment and regimen

== ENCOUNTER → 2020-06-28 | Outpatient (REF) ==
[~2020-06-28] MED LIST changes: +ACET1TAB55 PO; +ATOR1TAB21 PO; +LINE1TAB6 PO; +METF-838 PO; +NYST50SS SS; +RAMI1CAP22 PO; +[UNRECOGNIZED DRUG - CODE] IV
== END ==
LOC: M LAB LCGH 14:58
PROVIDERS: ATTEND Internal Medicine Infectious Disease
DX: Z01.89 Encounter for other specified special examinations (principal)

== ENCOUNTER → 2021-08-05 | Outpatient (REF) | payer BC ==
[~2021-08-05] MED LIST changes: +CLIN-250 PO; -CLIN300C5 PO; -LEVO500T3 PO; +LEVO500T4 PO
[2021-08-05 21:36] LABS: CREATININE, URINE 72.4 MG/DL; MAU/CREAT RATIO 469.6 MCG/MG (0.0-30.0)
== END ==
LOC: M LAB REF 17:04
PROVIDERS: ATTEND Nurse Practitioner Family
DX: R80.9 Proteinuria, unspecified (principal)

== ENCOUNTER → 2022-01-03 | Outpatient (REF) | payer BC | LOC: M SFHCWOUN 18:18 | PROVIDERS: ATTEND Surgery | DX: E11.621 Type 2 diabetes mellitus with foot ulcer (principal); L97.522 Non-pressure chronic ulcer of other part of left foot with fat layer exposed ==